=== PATIENT | male | born 1980 | race African-American/Black ===

== ENCOUNTER 2019-09-03 05:26 | Inpatient (IN) | payer BC ==
[~2019-09-03] VITALS: Ht 185.4 cm; Wt 133.8 kg
[2019-09-03] VITALS (13 sets, daily range): BP systolic 139–149; BP diastolic 51–89
[2019-09-03] MEDS: D5.45%NS/KCL 20MEQ 1,000 ML IV SCH ×3 (01:15→22:30)
[~2019-09-03 05:26] MED LIST: ACETAMINOPHEN325 M1 PO; AMLODIPINE BESY10 MG PO; BASAGLAR K100 UNIT/1; CARVEDILOL12.5 MG PO; GABAPENTIN300 MG PO; METFORMIN HCL500 MG PO; NORCO 5-325 TA1 EACH PO; PANTOPRAZOLE SO40 MG PO
--- OUTSIDE RECORDS SUMMARY | 2019-09-03 05:31 | XMS REPORT ---
[facility] Address Unknown Phone Unavailable Care Team Providers Care Chief Ophthalmic Technician Name Role Phone Unavailable Unavailable Payers Payer Name Policy Type Policy Number Effective Date Expiration Date Problems This patient has no known problems. Allergies, Adverse Reactions, Alerts Allergy Name Allergy Type Status Severity Reaction(s) Onset Date Inactive Date Treating Clinician Comments No Known Allergies DA Active U 2019-04-23 00:00:00 No Known Allergies DA Active U 2019-01-25 00:00:00 No Known Allergies DA Active U 2018-10-03 00:00:00 No Known Allergies DA Active U 2016-02-27 00:00:00 Medications This patient has no known medications. Encounters Start Date/Time End Date/Time Encounter Type Admission Type Attending Clinicians Care Facility Care Department Encounter ID 2019-06-28 08:18:00 2019-06-28 08:18:00 Outpatient [id number] 2018-10-26 13:16:00 2018-10-26 13:16:00 Outpatient [facility] [id number] 2018-10-11 00:00:00 2018-10-11 00:00:00 Outpatient [facility] [id number] 2018-09-21 11:16:53 2018-09-21 11:16:53 Emergency [facility] [id number] 2018-09-21 06:53:26 2018-09-21 06:53:26 Emergency [facility] [id number] 2018-09-21 05:23:49 2018-09-21 05:23:49 Emergency [facility] [id number] Results Test Description Test Time Test Comments Text Results Atomic Results Result Comments LYMPH NODES 2019-07-12 16:34:00 RUN DATE: 07/12/19 [facility] PAGE 1 RUN TIME: 1634 Specimen Inquiry RUN USER: INTERFACE PATIENT: GLENN BAUM LOC: MICHAEL U #: [id number] AGE/SX: 38/M ROOM: [facility] RE07/04/19REG DR: Mei Peralta MD : 81 BED: A DIS: 07/06/19 STATUS: DIS IN TLOC: SPEC #: [id number] RECD: 07/05/19 STATUS: SOUT REQ #: [id number] BERHANE: 07/05/19-[address]: Mei Peralta MD ENTERED: 07/05/19 SP TYPE: LYMPH NODE OTHR DR: Surinder Trevino MD, Tahir MD [facility] MDORDERED: GROSS [place]: [place] [address] [place] [address] Rachid Moore MD [address] [place] [address] [place] [address] [address] TUMOR REGISTRY Adilson Guzmán MD [address] [place], [place] [id number] MARKERS: INTRADEPARTMENTAL CONSULT, MALIGNANCY PROCEDURES: GROSS (07/12/19) TISSUES: 1. PAROTID GLAND, NOS - LN 5 SLIDE 2. 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 There revealed the tumor to be positive for OCT4 and DT-40, and negative for AFP and Pancytokeratin. A similar staining pattern was seen on the previous tumor in the orchiectomy specimen ([id number]). 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 The specimen is stained with PAP stain for cytologic evaluation. The second specimen is labeled "paraaortic lymph node" and consists of cores of fajardo soft tissue ranging from 0.3 to 0.9 cm. It is entirely submitted as (2). GROSS PERFORMED AT [facility] [address] [place] [phone])[phone] MICROSCOPIC The sections demonstrate a malignant tumor within fibrotic tissue. The tumor is composed of large tumor cells with a high nuclear cytoplasmic ratio, prominent nucleoli, and intermixed lymphocytes. Some focal necrosis is present. Similar tumor cells with intermixed lymphocytes are seen on the touch prep slides. All of the stains, including any controls performed, stain appropriately. MICROSCOPIC PERFORMED AT [facility] [address] [place] [address] CONTINUED ON NEXT PAGE RUN DATE: 07/12/19 [facility] PAGE 3 RUN TIME: 1634 Specimen Inquiry RUN USER: INTERFACE SPEC #: [id number] PATIENT: GLENN BAUM #[id number] (Continued) MICROSCOPIC (Continued) [place] [address] [phone])[phone] PERFORMING SITE Processed at: [facility] [address] [place] [address] Signed SIGNATURE ON FILE Stella Saavedra MD 07/12/19 1634 END OF REPORT - CT ABD PELVIS W/O CONT 2019-07-12 01:00:00 Name: GLENN BAUM [facility] FSED : 1980 Age/S: 38 / M [address] [facility] [address] Unit #: [id number] Loc: [address] Phys: Lesa Burris MD [place], [place] [address] Acct: [id number] Dis Date: Status: REG ER PHONE #: Exam Date: 07/12/2019 0033 FAX #: Reason: right flank pain EXAMS: CPT CODE: [id number] CT ABD PELVIS W/O CONT [address] CT abdomen and pelvis without IV contrast. Indication: Right flank pain Location: R16 Comparison: July 05, 2019 Technique: CT images of the abdomen and pelvis were obtained from the diaphragm to the pubic symphysis without the administration of intravenous contrast contrast. Coronal reformats are provided. One or more of the following dose reduction techniques were used: Automated exposure control, adjustment of the mA and/or kV according to patient size, and/or utilization of iterative reconstruction technique. Findings: Lungs bases: Unremarkable. Upper GI: Small hiatal hernia is noted Liver: Noncontrast appearance is unremarkable. Gallbladder: Noncontrast appearance is unremarkable. Pancreas: Noncontrast appearance is unremarkable. Spleen: Noncontrast appearance is unremarkable. Adrenal glands: Noncontrast appearance is unremarkable. Kidneys: Noncontrast appearance is unremarkable. Bowel: No bowel obstruction. The appendix is unremarkable. Peritoneum: No ascites. No free air Skeletal: No acute fracture.. Impression: Although limited by the absence of IV contrast, no definite acute abnormality is seen within the abdomen and pelvis to explain the patient's symptomology at 0100 Reported and signed by: Jessica Corrigan M.D. PAGE 1 Signed Report (CONTINUED) Name: GLENN BAUM [facility] FSED : 1980 Age/S: 38 / M [address] [facility] [address] Unit #: [id number] Loc: [address] Phys: Lesa Burris MD [place], [place] [address] Acct: [id number] Dis Date: Status: REG ER PHONE #: Exam Date: 07/12/2019 0033 FAX #: Reason: right flank pain EXAMS: CPT CODE: [id number] CT ABD PELVIS W/O CONT 82209 <Continued> CC: Surinder Trevino MD; Lesa Burris MD Technologist:Reece Arevalo CTDI: DLP: Trnscb Date/Time: 07/12/2019 (010) [email or web address] Orig Print D/T: S: 07/12/2019 (0103) PAGE 2 Signed Report URINALYSIS COMPLETE 2019-07-12 00:21:00 UA COLOR (test code=COLU) YELLOW YELLOW UA APPEARANCE (test code=APPU) CLEAR CLEAR UA GLUCOSE DIPSTICK (test code=DGLUU) NEGATIVE mg/dL NEGATIVE UA BILIRUBIN DIPSTICK (test code=BILU) NEGATIVE NEGATIVE UA KETONE DIPSTICK (test code=KETU) NEGATIVE mg/dL NEGATIVE UA SPECIFIC GRAVITY (test code=SGU) >=1.030 1.001-1.035 UA BLOOD DIPSTICK (test code=NIRMAL) NEGATIVE NEGATIVE UA PH DIPSTICK (test code=KRUNAL) 6.0 5.0-8.0 UA PROTEIN DIPSTICK (test code=PROU) TRACE (15) mg/dL Neg-15 UA UROBILINIOGEN DIPSTICK (test code=URO) 0.2 mg/dL 0.0-0.2 UA NITRITE DIPSTICK (test code=ARAMIS) NEGATIVE NEGATIVE UA LEUKOCYTE ESTERASE DIPSTICK (test code=LEUU) NEGATIVE uL NEGATIVE UA MICROSCOPIC NEEDED? (test code=UAMICRO) YES UA WBC (test code=WBCU) 0-5 per HPF 0-5 UA RBC (test code=RBCU) 0-3 per HPF 0-5 UA EPITHELIAL CELLS (test code=EPIU) Few (2-5/hpf) per HPF Few UA BACTERIA (test code=BACU) FEW per HPF NONE Urine Source? Clean CatchCOMPREHENSIVE METABOLIC [id number] 00:15:00* Test Item Value Reference Range Comments SODIUM (test code=NA) 141 mmol/L 128-145 POTASSIUM (test code=K) 4.4 mmol/L 3.5-5.1 CHLORIDE (test code=CL) 103.0 mmol/L 98-107 CARBON DIOXIDE (test code=CO2) 27.8 mmol/L 22-29 ANION GAP (test code=GAP) 15 mmol/L 10-20 GLUCOSE (test code=GLU) 118 mg/dL 70-110 BLOOD UREA NITROGEN (test code=BUN) 19 mg/dL 7-22 CREATININE (test code=CREAT) 1.56 mg/dL 0.55-1.3 BUN/CREATININE RATIO (test code=BUN/CREA) 12.2 10-20 TOTAL PROTEIN (test code=PROT) 7.2 gram/dL 6.1-7.8 ALBUMIN (test code=ALB) 3.7 g/dL 3.3-4.4 GLOBULIN (test code=GLOB) 3.5 G/DL 1-10 ALBUMIN/GLOBULIN RATIO (test code=A/G) 1.1 0.75-1.50 CALCIUM (test code=CA) 8.7 mg/dL 8.0-10.5 BILIRUBIN TOTAL (test code=BILT) 0.20 mg/dL 0.2-1.2 SGOT/AST (test code=AST) 28 U/L 10-39 SGPT/ALT (test code=ALT) 37 U/L 10-69 ALKALINE PHOSPHATASE TOTAL (test code=ALKP) 91 U/L 50-139 [id number] 00:15:00* Test Item Value Reference Range Comments LIPASE (test code=LIP) 195 Unit/L 144-286 URINALYSIS [id number] 00:15:00* Test Item Value Reference Range Comments UA COLOR (test code=COLU) YELLOW YELLOW UA APPEARANCE (test code=APPU) CLEAR CLEAR UA GLUCOSE DIPSTICK (test code=DGLUU) NEGATIVE mg/dL NEGATIVE UA BILIRUBIN DIPSTICK (test code=BILU) NEGATIVE NEGATIVE UA KETONE DIPSTICK (test code=KETU) NEGATIVE mg/dL NEGATIVE UA SPECIFIC GRAVITY (test code=SGU) >=1.030 1.001-1.035 UA BLOOD DIPSTICK (test code=NIRMAL) NEGATIVE NEGATIVE UA PH DIPSTICK (test code=KRUNAL) 6.0 5.0-8.0 UA PROTEIN DIPSTICK (test code=PROU) TRACE (15) mg/dL Neg-15 UA UROBILINIOGEN DIPSTICK (test code=URO) 0.2 mg/dL 0.0-0.2 UA NITRITE DIPSTICK (test code=ARAMIS) NEGATIVE NEGATIVE UA LEUKOCYTE ESTERASE DIPSTICK (test code=LEUU) NEGATIVE uL NEGATIVE UA MICROSCOPIC NEEDED? (test code=UAMICRO) UA WBC (test code=WBCU) per HPF 0-5 UA RBC (test code=RBCU) per HPF 0-5 UA EPITHELIAL CELLS (test code=EPIU) per HPF Few UA BACTERIA (test code=BACU) per HPF NONE Urine Source? Clean CatchCOMPREHENSIVE METABOLIC [id number] 00:11:00* Test Item Value Reference Range Comments SODIUM (test code=NA) 141 mmol/L 128-145 POTASSIUM (test code=K) 4.4 mmol/L 3.5-5.1 CHLORIDE (test code=CL) 103.0 mmol/L 98-107 CARBON DIOXIDE (test code=CO2) 27.8 mmol/L 22-29 ANION GAP (test code=GAP) 15 mmol/L 10-20 GLUCOSE (test code=GLU) 118 mg/dL 70-110 BLOOD UREA NITROGEN (test code=BUN) 19 mg/dL 7-22 CREATININE (test code=CREAT) 1.56 mg/dL 0.55-1.3 BUN/CREATININE RATIO (test code=BUN/CREA) 12.2 10-20 TOTAL PROTEIN (test code=PROT) gram/dL 6.4-8.2 ALBUMIN (test code=ALB) g/dL 3.4-5.0 GLOBULIN (test code=GLOB) G/DL 1-10 ALBUMIN/GLOBULIN RATIO (test code=A/G) 0.75-1.50 CALCIUM (test code=CA) 8.7 mg/dL 8.0-10.5 BILIRUBIN TOTAL (test code=BILT) mg/dL 0.0-1.0 SGOT/AST (test code=AST) IUnit/L 15-37 SGPT/ALT (test code=ALT) IUnit/L 12-78 ALKALINE PHOSPHATASE TOTAL (test code=ALKP) IUnit/L 45-117 [id number] 00:11:00* Test Item Value Reference Range Comments LIPASE (test code=LIP) U/L 73.0-393.0 CBC W/AUTO [id number] 00:01:00* Test Item Value Reference Range Comments WHITE BLOOD CELL (test code=WBC) 7.1 K/mm3 4.5-12.5 RED BLOOD CELL (test code=RBC) 4.49 mill/mm3 4.0-5.8 HEMOGLOBIN (test code=HGB) 11.3 gram/dL 13.0-17.5 HEMATOCRIT (test code=HCT) 37.4 % 42.0-52.0 MEAN CELL VOLUME (test code=MCV) 83.3 fL 80-98 MEAN CELL HGB (test code=MCH) 25.2 picogram 27.0-33.0 MEAN CELL HGB CONCETRATION (test code=MCHC) 30.2 gram/dL 33.0-36.0 RED CELL DISTRIBUTION WIDTH (test code=RDW) 13.4 % 11.6-16.2 RED CELL DISTRIBUTION WIDTH SD (test code=RDW-SD) 41.1 fL 37.0-51.0 PLATELET COUNT (test code=PLT) 162 K/mm3 150-450 MEAN PLATELET VOLUME (test code=MPV) 11.0 fL 6.7-11.0 NEUTROPHIL % (test code=NT%) 44.7 % 39.0-69.0 LYMPHOCYTE % (test code=LY%) 41.8 % 25.0-55.0 MONOCYTE % (test code=MO%) 10.5 % 0.0-10.0 EOSINOPHIL % (test code=EO%) 2.4 % 0.0-5.0 BASOPHIL % (test code=BA%) 0.3 % 0.0-1.0 NEUTROPHIL # (test code=NT#) 3.15 K/mm3 1.8-7.7 LYMPHOCYTE # (test code=LY#) 2.95 K/mm3 1.0-5.0 MONOCYTE # (test code=MO#) 0.74 K/mm3 0-0.8 EOSINOPHIL # (test code=EO#) 0.17 K/mm3 0.0-0.5 BASOPHIL # (test code=BA#) 0.02 K/mm3 0.0-0.2 MANUAL DIFF REQUIRED (test code=MDIFF) NO CBC W/AUTO [id number] 09:54:00* Test Item Value Reference Range Comments WHITE BLOOD CELL (test code=WBC) 6.5 K/mm3 4.5-12.5 RED BLOOD CELL (test code=RBC) 4.76 mill/mm3 4.0-5.8 HEMOGLOBIN (test code=HGB) 11.5 gram/dL 13.0-17.5 HEMATOCRIT (test code=HCT) 39.9 % 42.0-52.0 MEAN CELL VOLUME (test code=MCV) 83.8 fL 80-98 MEAN CELL HGB (test code=MCH) 24.2 picogram 27.0-33.0 MEAN CELL HGB CONCETRATION (test code=MCHC) 28.8 gram/dL 33.0-36.0 RED CELL DISTRIBUTION WIDTH (test code=RDW) 13.3 % 11.6-16.2 RED CELL DISTRIBUTION WIDTH SD (test code=RDW-SD) 40.8 fL 37.0-51.0 PLATELET COUNT (test code=PLT) 193 K/mm3 150-450 MEAN PLATELET VOLUME (test code=MPV) 10.4 fL 6.7-11.0 NEUTROPHIL % (test code=NT%) 48.2 % 39.0-69.0 IMMATURE GRANULOCYTE % (test code=IG%) 0.2 % 0.0-5.0 LYMPHOCYTE % (test code=LY%) 41.7 % 25.0-55.0 MONOCYTE % (test code=MO%) 7.7 % 0.0-10.0 EOSINOPHIL % (test code=EO%) 1.7 % 0.0-5.0 BASOPHIL % (test code=BA%) 0.5 % 0.0-1.0 NUCLEATED RBC % (test code=NRBC%) 0.0 % 0-0 NEUTROPHIL # (test code=NT#) 3.14 K/mm3 1.8-7.7 IMMATURE GRANULOCYTE # (test code=IG#) 0.01 x10 3/uL 0-0.03 LYMPHOCYTE # (test code=LY#) 2.71 K/mm3 1.0-5.0 MONOCYTE # (test code=MO#) 0.50 K/mm3 0-0.8 EOSINOPHIL # (test code=EO#) 0.11 K/mm3 0.0-0.5 BASOPHIL # (test code=BA#) 0.03 K/mm3 0.0-0.2 NUCLEATED RBC # (test code=NRBC#) 0.00 K/mm3 0.0-0.1 MANUAL DIFF REQUIRED (test code=MDIFF) NO, ONLY SCAN NEEDED DIFFERENTIAL [id number] 09:54:00* Test Item Value Reference Range Comments STAIN ACCEPTABILITY (test code=STN ACCEPTABLE) STAIN ACCEPTABLE POLYCHROMASIA (test code=POLC) 1+ HYPOCHROMIA (test code=HYPO) 1+ POIKILOCYTOSIS (test code=POIK) 1+ ANISOCYTOSIS (test code=ANISO) 1+ PLATELET ESTIMATE (test code=PLTEST) ADEQUATE PLATELET MORPHOLOGY (test code=PLTMORPH) NORMAL BASIC METABOLIC [id number] 09:50:00* Test Item Value Reference Range Comments SODIUM (test code=NA) 139 mmol/L 136-145 POTASSIUM (test code=K) 4.1 mmol/L 3.5-5.1 CHLORIDE (test code=CL) 105.0 mmol/L 98-107 CARBON DIOXIDE (test code=CO2) 28.0 mmol/L 21-32 ANION GAP (test code=GAP) 10.1 10-20 GLUCOSE (test code=GLU) 115 mg/dL 74-106 BLOOD UREA NITROGEN (test code=BUN) 14 mg/dL 7-18 GLOMERULAR FILTRATION RATE (test code=GFR) > 60 mL/min >=60 Estimated GFR by using Modified MDRD formula.Chronic kidney disease is defined as either kidney damageor GFR <60 mL/min/1.73 m2 for >3 months. CREATININE (test code=CREAT) 1.30 mg/dL 0.7-1.3 BUN/CREATININE RATIO (test code=BUN/CREA) 10.9 10-20 CALCIUM (test code=CA) 9.0 mg/dL 8.5-10.1 BASIC METABOLIC [id number] 09:38:00* Test Item Value Reference Range Comments SODIUM (test code=NA) 139 mmol/L 136-145 POTASSIUM (test code=K) 4.1 mmol/L 3.5-5.1 CHLORIDE (test code=CL) 105.0 mmol/L 98-107 CARBON DIOXIDE (test code=CO2) mmol/L 21-32 ANION GAP (test code=GAP) 10-20 GLUCOSE (test code=GLU) mg/dL 74-106 BLOOD UREA NITROGEN (test code=BUN) mg/dL 7-18 GLOMERULAR FILTRATION RATE (test code=GFR) mL/min >=60 CREATININE (test code=CREAT) mg/dL 0.7-1.3 BUN/CREATININE RATIO (test code=BUN/CREA) 10-20 CALCIUM (test code=CA) mg/dL 8.5-10.1 CBC W/AUTO [id number] 09:23:00* Test Item Value Reference Range Comments WHITE BLOOD CELL (test code=WBC) 6.5 K/mm3 4.5-12.5 RED BLOOD CELL (test code=RBC) 4.76 mill/mm3 4.0-5.8 HEMOGLOBIN (test code=HGB) 11.5 gram/dL 13.0-17.5 HEMATOCRIT (test code=HCT) 39.9 % 42.0-52.0 MEAN CELL VOLUME (test code=MCV) 83.8 fL 80-98 MEAN CELL HGB (test code=MCH) 24.2 picogram 27.0-33.0 MEAN CELL HGB CONCETRATION (test code=MCHC) 28.8 gram/dL 33.0-36.0 RED CELL DISTRIBUTION WIDTH (test code=RDW) 13.3 % 11.6-16.2 RED CELL DISTRIBUTION WIDTH SD (test code=RDW-SD) 40.8 fL 37.0-51.0 PLATELET COUNT (test code=PLT) 193 K/mm3 150-450 MEAN PLATELET VOLUME (test code=MPV) 10.4 fL 6.7-11.0 NEUTROPHIL % (test code=NT%) 48.2 % 39.0-69.0 IMMATURE GRANULOCYTE % (test code=IG%) 0.2 % 0.0-5.0 LYMPHOCYTE % (test code=LY%) 41.7 % 25.0-55.0 MONOCYTE % (test code=MO%) 7.7 % 0.0-10.0 EOSINOPHIL % (test code=EO%) 1.7 % 0.0-5.0 BASOPHIL % (test code=BA%) 0.5 % 0.0-1.0 NUCLEATED RBC % (test code=NRBC%) 0.0 % 0-0 NEUTROPHIL # (test code=NT#) 3.14 K/mm3 1.8-7.7 IMMATURE GRANULOCYTE # (test code=IG#) 0.01 x10 3/uL 0-0.03 LYMPHOCYTE # (test code=LY#) 2.71 K/mm3 1.0-5.0 MONOCYTE # (test code=MO#) 0.50 K/mm3 0-0.8 EOSINOPHIL # (test code=EO#) 0.11 K/mm3 0.0-0.5 BASOPHIL # (test code=BA#) 0.03 K/mm3 0.0-0.2 NUCLEATED RBC # (test code=NRBC#) 0.00 K/mm3 0.0-0.1 MANUAL DIFF REQUIRED (test code=MDIFF) NO, ONLY SCAN NEEDED DIFFERENTIAL [id number] 09:23:00* Test Item Value Reference Range Comments STAIN ACCEPTABILITY (test code=STN ACCEPTABLE) CABOT RINGS (test code=CAB) MORPHOLOGY COMMENT (test code=MOC) PLATELET ESTIMATE (test code=PLTEST) PLATELET MORPHOLOGY (test code=PLTMORPH) CBC W/AUTO [id number] 09:23:00* Test Item Value Reference Range Comments WHITE BLOOD CELL (test code=WBC) 6.5 K/mm3 4.5-12.5 RED BLOOD CELL (test code=RBC) 4.76 mill/mm3 4.0-5.8 HEMOGLOBIN (test code=HGB) 11.5 gram/dL 13.0-17.5 HEMATOCRIT (test code=HCT) 39.9 % 42.0-52.0 MEAN CELL VOLUME (test code=MCV) 83.8 fL 80-98 MEAN CELL HGB (test code=MCH) 24.2 picogram 27.0-33.0 MEAN CELL HGB CONCETRATION (test code=MCHC) 28.8 gram/dL 33.0-36.0 RED CELL DISTRIBUTION WIDTH (test code=RDW) 13.3 % 11.6-16.2 RED CELL DISTRIBUTION WIDTH SD (test code=RDW-SD) 40.8 fL 37.0-51.0 PLATELET COUNT (test code=PLT) 193 K/mm3 150-450 MEAN PLATELET VOLUME (test code=MPV) 10.4 fL 6.7-11.0 NEUTROPHIL % (test code=NT%) 48.2 % 39.0-69.0 IMMATURE GRANULOCYTE % (test code=IG%) 0.2 % 0.0-5.0 LYMPHOCYTE % (test code=LY%) 41.7 % 25.0-55.0 MONOCYTE % (test code=MO%) 7.7 % 0.0-10.0 EOSINOPHIL % (test code=EO%) 1.7 % 0.0-5.0 BASOPHIL % (test code=BA%) 0.5 % 0.0-1.0 NUCLEATED RBC % (test code=NRBC%) 0.0 % 0-0 NEUTROPHIL # (test code=NT#) 3.14 K/mm3 1.8-7.7 IMMATURE GRANULOCYTE # (test code=IG#) 0.01 x10 3/uL 0-0.03 LYMPHOCYTE # (test code=LY#) 2.71 K/mm3 1.0-5.0 MONOCYTE # (test code=MO#) 0.50 K/mm3 0-0.8 EOSINOPHIL # (test code=EO#) 0.11 K/mm3 0.0-0.5 BASOPHIL # (test code=BA#) 0.03 K/mm3 0.0-0.2 NUCLEATED RBC # (test code=NRBC#) 0.00 K/mm3 0.0-0.1 MANUAL DIFF REQUIRED (test code=MDIFF) NO, ONLY SCAN NEEDED DIFFERENTIAL [id number] 09:23:00* Test Item Value Reference Range Comments STAIN ACCEPTABILITY (test code=STN ACCEPTABLE) MORPHOLOGY COMMENT (test code=MOC) PLATELET ESTIMATE (test code=PLTEST) PLATELET MORPHOLOGY (test code=PLTMORPH) CBC W/AUTO [id number] 09:22:00* Test Item Value Reference Range Comments WHITE BLOOD CELL (test code=WBC) 6.5 K/mm3 4.5-12.5 RED BLOOD CELL (test code=RBC) 4.76 mill/mm3 4.0-5.8 HEMOGLOBIN (test code=HGB) 11.5 gram/dL 13.0-17.5 HEMATOCRIT (test code=HCT) 39.9 % 42.0-52.0 MEAN CELL VOLUME (test code=MCV) 83.8 fL 80-98 MEAN CELL HGB (test code=MCH) 24.2 picogram 27.0-33.0 MEAN CELL HGB CONCETRATION (test code=MCHC) 28.8 gram/dL 33.0-36.0 RED CELL DISTRIBUTION WIDTH (test code=RDW) 13.3 % 11.6-16.2 RED CELL DISTRIBUTION WIDTH SD (test code=RDW-SD) 40.8 fL 37.0-51.0 PLATELET COUNT (test code=PLT) 193 K/mm3 150-450 MEAN PLATELET VOLUME (test code=MPV) 10.4 fL 6.7-11.0 NEUTROPHIL % (test code=NT%) 48.2 % 39.0-69.0 IMMATURE GRANULOCYTE % (test code=IG%) 0.2 % 0.0-5.0 LYMPHOCYTE % (test code=LY%) 41.7 % 25.0-55.0 MONOCYTE % (test code=MO%) 7.7 % 0.0-10.0 EOSINOPHIL % (test code=EO%) 1.7 % 0.0-5.0 BASOPHIL % (test code=BA%) 0.5 % 0.0-1.0 NUCLEATED RBC % (test code=NRBC%) 0.0 % 0-0 NEUTROPHIL # (test code=NT#) 3.14 K/mm3 1.8-7.7 IMMATURE GRANULOCYTE # (test code=IG#) 0.01 x10 3/uL 0-0.03 LYMPHOCYTE # (test code=LY#) 2.71 K/mm3 1.0-5.0 MONOCYTE # (test code=MO#) 0.50 K/mm3 0-0.8 EOSINOPHIL # (test code=EO#) 0.11 K/mm3 0.0-0.5 BASOPHIL # (test code=BA#) 0.03 K/mm3 0.0-0.2 NUCLEATED RBC # (test code=NRBC#) 0.00 K/mm3 0.0-0.1 MANUAL DIFF REQUIRED (test code=MDIFF) NO, ONLY SCAN NEEDED DIFFERENTIAL [id number] 09:22:00* Test Item Value Reference Range Comments STAIN ACCEPTABILITY (test code=STN ACCEPTABLE) CABOT RINGS (test code=CAB) MORPHOLOGY COMMENT (test code=MOC) PLATELET ESTIMATE (test code=PLTEST) PLATELET MORPHOLOGY (test code=PLTMORPH) CBC W/AUTO [id number] 09:22:00* Test Item Value Reference Range Comments WHITE BLOOD CELL (test code=WBC) 6.5 K/mm3 4.5-12.5 RED BLOOD CELL (test code=RBC) 4.76 mill/mm3 4.0-5.8 HEMOGLOBIN (test code=HGB) 11.5 gram/dL 13.0-17.5 HEMATOCRIT (test code=HCT) 39.9 % 42.0-52.0 MEAN CELL VOLUME (test code=MCV) 83.8 fL 80-98 MEAN CELL HGB (test code=MCH) 24.2 picogram 27.0-33.0 MEAN CELL HGB CONCETRATION (test code=MCHC) 28.8 gram/dL 33.0-36.0 RED CELL DISTRIBUTION WIDTH (test code=RDW) 13.3 % 11.6-16.2 RED CELL DISTRIBUTION WIDTH SD (test code=RDW-SD) 40.8 fL 37.0-51.0 PLATELET COUNT (test code=PLT) 193 K/mm3 150-450 MEAN PLATELET VOLUME (test code=MPV) 10.4 fL 6.7-11.0 NEUTROPHIL % (test code=NT%) 48.2 % 39.0-69.0 IMMATURE GRANULOCYTE % (test code=IG%) 0.2 % 0.0-5.0 LYMPHOCYTE % (test code=LY%) 41.7 % 25.0-55.0 MONOCYTE % (test code=MO%) 7.7 % 0.0-10.0 EOSINOPHIL % (test code=EO%) 1.7 % 0.0-5.0 BASOPHIL % (test code=BA%) 0.5 % 0.0-1.0 NUCLEATED RBC % (test code=NRBC%) 0.0 % 0-0 NEUTROPHIL # (test code=NT#) 3.14 K/mm3 1.8-7.7 IMMATURE GRANULOCYTE # (test code=IG#) 0.01 x10 3/uL 0-0.03 LYMPHOCYTE # (test code=LY#) 2.71 K/mm3 1.0-5.0 MONOCYTE # (test code=MO#) 0.50 K/mm3 0-0.8 EOSINOPHIL # (test code=EO#) 0.11 K/mm3 0.0-0.5 BASOPHIL # (test code=BA#) 0.03 K/mm3 0.0-0.2 NUCLEATED RBC # (test code=NRBC#) 0.00 K/mm3 0.0-0.1 MANUAL DIFF REQUIRED (test code=MDIFF) NO, ONLY SCAN NEEDED DIFFERENTIAL [id number] 09:22:00* Test Item Value Reference Range Comments STAIN ACCEPTABILITY (test code=STN ACCEPTABLE) CABOT RINGS (test code=CAB) MORPHOLOGY COMMENT (test code=MOC) PLATELET ESTIMATE (test code=PLTEST) PLATELET MORPHOLOGY (test code=PLTMORPH) [id number] 08:16:00* Test Item Value Reference Range Comments GLUBED (test code=GLUBED) 73 mg/dL 74-106 Performed by certified mingler operator at [facility] [id number] 20:33:00* Test Item Value Reference Range Comments GLUBED (test code=GLUBED) 94 mg/dL 74-106 Performed by certified mingler operator at [facility] [id number] 17:14:00* Test Item Value Reference Range Comments GLUBED (test code=GLUBED) 200 mg/dL 74-106 Performed by certified mingler operator at [facility] URINALYSIS W/O [id number] 13:47:00* Test Item Value Reference Range Comments UA COLOR (test code=COLU) Light-Yellow YELLOW UA APPEARANCE (test code=APPU) CLEAR CLEAR UA GLUCOSE DIPSTICK (test code=DGLUU) NEGATIVE mg/dL NEGATIVE UA BILIRUBIN DIPSTICK (test code=BILU) NEGATIVE mg/dL NEGATIVE UA KETONE DIPSTICK (test code=KETU) NEGATIVE mg/dL NEGATIVE UA SPECIFIC GRAVITY (test code=SGU) 1.015 1.001-1.035 UA BLOOD DIPSTICK (test code=NIRMAL) Negative mg/dL NEGATIVE UA PH DIPSTICK (test code=KRUNAL) 5.5 5.0-8.0 UA PROTEIN DIPSTICK (test code=PROU) NEGATIVE mg/dL NEGATIVE UA UROBILINIOGEN DIPSTICK (test code=URO) Normal mg/dL NEGATIVE UA NITRITE DIPSTICK (test code=ARAMIS) NEGATIVE NEGATIVE UA LEUKOCYTE ESTERASE W REFLEX (test code=LEUUR) NEGATIVE Yoni/uL NEGATIVE UR PROTEIN/CREATININE [id number] 13:47:00* Test Item Value Reference Range Comments UR PROTEIN RANDOM (test code=PROTU) 7.6 mg/dL 0.0-11.9 Protein levels may be falsely elevated in patients withelevated level of aminoglycoside antibiotics in CSF and inhighly concentrated urine specimens. If false elevation issuspected, contact lab for alternated testing technique. UR CREATININE RANDOM (test code=CREATU) 103.0 mg/dL 30-125 PROTEIN/CREATININE RATIO (test code=P/CRATIO) 0.07 RATIO 0.0-0.20 URINALYSIS W/O [id number] 13:43:00* Test Item Value Reference Range Comments UA COLOR (test code=COLU) Light-Yellow YELLOW UA APPEARANCE (test code=APPU) CLEAR CLEAR UA GLUCOSE DIPSTICK (test code=DGLUU) NEGATIVE mg/dL NEGATIVE UA BILIRUBIN DIPSTICK (test code=BILU) NEGATIVE mg/dL NEGATIVE UA KETONE DIPSTICK (test code=KETU) NEGATIVE mg/dL NEGATIVE UA SPECIFIC GRAVITY (test code=SGU) 1.015 1.001-1.035 UA BLOOD DIPSTICK (test code=NIRMAL) Negative mg/dL NEGATIVE UA PH DIPSTICK (test code=KRUNAL) 5.5 5.0-8.0 UA PROTEIN DIPSTICK (test code=PROU) NEGATIVE mg/dL NEGATIVE UA UROBILINIOGEN DIPSTICK (test code=URO) Normal mg/dL NEGATIVE UA NITRITE DIPSTICK (test code=ARAMIS) NEGATIVE NEGATIVE UA LEUKOCYTE ESTERASE W REFLEX (test code=LEUUR) NEGATIVE Yoni/uL NEGATIVE UR PROTEIN/CREATININE [id number] 13:43:00* Test Item Value Reference Range Comments UR PROTEIN RANDOM (test code=PROTU) 7.6 mg/dL 0.0-11.9 Protein levels may be falsely elevated in patients withelevated level of aminoglycoside antibiotics in CSF and inhighly concentrated urine specimens. If false elevation issuspected, contact lab for alternated testing technique. UR CREATININE RANDOM (test code=CREATU) mg/dL 30-125 PROTEIN/CREATININE RATIO (test code=P/CRATIO) RATIO 0.0-0.20 URINALYSIS W/O [id number] 13:18:00* Test Item Value Reference Range Comments UA COLOR (test code=COLU) Light-Yellow YELLOW UA APPEARANCE (test code=APPU) CLEAR CLEAR UA GLUCOSE DIPSTICK (test code=DGLUU) NEGATIVE mg/dL NEGATIVE UA BILIRUBIN DIPSTICK (test code=BILU) NEGATIVE mg/dL NEGATIVE UA KETONE DIPSTICK (test code=KETU) NEGATIVE mg/dL NEGATIVE UA SPECIFIC GRAVITY (test code=SGU) 1.015 1.001-1.035 UA BLOOD DIPSTICK (test code=NIRMAL) Negative mg/dL NEGATIVE UA PH DIPSTICK (test code=KRUNAL) 5.5 5.0-8.0 UA PROTEIN DIPSTICK (test code=PROU) NEGATIVE mg/dL NEGATIVE UA UROBILINIOGEN DIPSTICK (test code=URO) Normal mg/dL NEGATIVE UA NITRITE DIPSTICK (test code=ARAMIS) NEGATIVE NEGATIVE UA LEUKOCYTE ESTERASE W REFLEX (test code=LEUUR) NEGATIVE Yoni/uL NEGATIVE UR PROTEIN/CREATININE [id number] 13:18:00* Test Item Value Reference Range Comments UR PROTEIN RANDOM (test code=PROTU) mg/dL 0.0-11.9 UR CREATININE RANDOM (test code=CREATU) mg/dL 30-125 PROTEIN/CREATININE RATIO (test code=P/CRATIO) RATIO 0.0-0.20 - CT GUID NDL [id number] 12:33:00 Name: GLENN BAUM [facility] : 1980 Age/S: 38 / M [address] [facility] Unit #: [id number] Loc: [place] [address] Phys: Pricilla Adame Acct: [id number] Dis Date: Status: ADM IN PHONE #: [phone] Exam Date: 07/05/2019 1145 FAX #: [phone] Reason: PARAORTIC LN BIOPSY, HX OF TESTICULAR CA EXAMS: CPT CODE: [id number] CT GUID [facility] [address] REASON FOR EXAM: Testicular cancer with enlargement of the left paraaortic lymph node. PROCEDURE: CT-guided biopsy of left para-aortic lymph node [id number] procedure time is approximately: 45 minutes FINDINGS: After informed consent was obtained, the patient was brought to CT and placed prone on the table. All elements of maximal sterile barrier technique were followed. Prior to the biopsy, axial images of the abdomen were obtained without intravenous contrast. Images of the CT were reviewed and the left para-aortic lymph node was localized. A safe pathway was found between the subcutaneous entry site and the left para-aortic lymph node. The access site was prepped and draped in the usual sterile fashion. A guiding needle was advanced into left para-aortic lymph node. Multiple core biopsies were then performed using a 20-gauge biopsy gun. Samples were submitted for cytology, microbiology, and flow cytometry. The needle was removed and hemostasis obtained. MEDICATIONS: 2 versed and 75 mcg fentanyl COMPLICATIONS: No immediate Blood loss: Less than 5 mL Fluoroscopic dose:514 mGy IMPRESSION: Technically successful CT-guided biopsy of left para-aortic lymph node. at 1233 Reported and signed by: Silas Breen M.D. CC: Surinder Trevino MD; Pricilla Adame; Mei Peralta MD Technologist:Ksenia Mcnally,RT(R),CT CTDI: DLP: Trnscb Date/Time: 07/05/2019 (1233) t.SDR.VTL Orig Print D/T: S: 07/05/2019 (8501) PAGE 1 Signed Report - CT ABD PELVIS W/O CONT 2019-07-05 11:03:00 Name: GLENN BAUM [facility] : 1980 Age/S: 38 / M [address] [facility] Unit #: [id number] Loc: [place] [address] Phys: Silas Breen MD Acct: [id number] Dis Date: Status: ADM IN PHONE #: [phone] Exam Date: 07/05/2019 1046 FAX #: [phone] Reason: EVAL PARAORTIC LYMPH NODE EXAMS: CPT CODE: [id number] CT ABD PELVIS W/O CONT 74845 HISTORY: Periaortic lymph node evaluation. Location: [facility]. COMPARISON: CT scan from September, and PET scan from February 26, 2019. CT of abdomen and pelvis: Stone protocol. Automated exposure control. CT of abdomen: The lung bases are clear. Noncontrast liver is unremarkable. No discrete lesions are noted. The liver is measuring 21.1 cm. Gallbladder is without radiopaque stones. Unremarkable spleen. The stomach distended incompletely however it is normal in appearance. Noncontrast pancreas and adrenals are normal. Kidneys are free from hydroureteronephrosis. No calyceal stones. Retroperitoneal pathologic adenopathy at the level of the renal hilum and anterior to the left renal vein measured 3.7 cm. This is seen posterior to the pancreatic tail. This is larger from previous examination when it measured up to 1.5 cm. No bowel obstruction or colitis or diverticulitis or enteritis. CT PELVIS: Appendix is normal. Pelvic bowel loops are unobstructed. Mild distention rectosigmoid colon with stool and air. Prostate is not enlarged. No pathologic pelvic adenopathy. No free fluid or free air. Phleboliths. Subcutaneous tissues and the musculature are normal in appearance. No lytic or blastic lesions noted within the bony skeleton. Bony exostosis from the right pubic bone. IMPRESSION: Left para-aortic lymph node in the lower lobe and left renal hilum PAGE 1 Signed Report (CONTINUED) Name: GLENN BAUM [facility] : 1980 Age/S: 38 / M [address] [facility] Unit #: [id number] Loc: [place] [address] Phys: Silas Breen MD Acct: [id number] Dis Date: Status: ADM IN PHONE #: [phone] Exam Date: 07/05/2019 1046 FAX #: [phone] Reason: EVAL PARAORTIC LYMPH NODE EXAMS: CPT CODE: [id number] CT ABD PELVIS W/O CONT [id number] < Continued> anterior to the left renal vein and posterior to the pancreatic tail measuring 3.7 cm from 1.5 cm from previous PET/CT scan. at 1103 Reported and signed by: Nadeem Milton M.D. CC: Surinder Trevino MD; Mei Peralta MD Technologist:Allyn Rodríguez RT(R),CT CTDI: DLP: Trnscb Date/Time: 07/05/2019 (1103) t.[email or web address] Orig Print D/T: S: 07/05/2019 (1106) PAGE 2 Signed Report BASIC METABOLIC [id number] 10:02:00* Test Item Value Reference Range Comments SODIUM (test code=NA) 140 mmol/L 136-145 POTASSIUM (test code=K) 4.2 mmol/L 3.5-5.1 CHLORIDE (test code=CL) 105.0 mmol/L 98-107 CARBON DIOXIDE (test code=CO2) 29.0 mmol/L 21-32 ANION GAP (test code=GAP) 10.2 10-20 GLUCOSE (test code=GLU) 84 mg/dL 74-106 BLOOD UREA NITROGEN (test code=BUN) 15 mg/dL 7-18 GLOMERULAR FILTRATION RATE (test code=GFR) > 60 mL/min >=60 Estimated GFR by using Modified MDRD formula.Chronic kidney disease is defined as either kidney damageor GFR <60 mL/min/1.73 m2 for >3 months. CREATININE (test code=CREAT) 1.40 mg/dL 0.7-1.3 BUN/CREATININE RATIO (test code=BUN/CREA) 11.1 10-20 CALCIUM (test code=CA) 8.9 mg/dL 8.5-10.1 CBC W/AUTO [id number] 09:56:00* Test Item Value Reference Range Comments WHITE BLOOD CELL (test code=WBC) 6.5 K/mm3 4.5-12.5 RED BLOOD CELL (test code=RBC) 4.91 mill/mm3 4.0-5.8 HEMOGLOBIN (test code=HGB) 11.8 gram/dL 13.0-17.5 HEMATOCRIT (test code=HCT) 40.7 % 42.0-52.0 MEAN CELL VOLUME (test code=MCV) 82.9 fL 80-98 MEAN CELL HGB (test code=MCH) 24.0 picogram 27.0-33.0 MEAN CELL HGB CONCETRATION (test code=MCHC) 29.0 gram/dL 33.0-36.0 RED CELL DISTRIBUTION WIDTH (test code=RDW) 13.3 % 11.6-16.2 RED CELL DISTRIBUTION WIDTH SD (test code=RDW-SD) 40.3 fL 37.0-51.0 PLATELET COUNT (test code=PLT) 202 K/mm3 150-450 MEAN PLATELET VOLUME (test code=MPV) 11.3 fL 6.7-11.0 NEUTROPHIL % (test code=NT%) 39.0 % 39.0-69.0 IMMATURE GRANULOCYTE % (test code=IG%) 0.2 % 0.0-5.0 LYMPHOCYTE % (test code=LY%) 49.7 % 25.0-55.0 MONOCYTE % (test code=MO%) 8.5 % 0.0-10.0 EOSINOPHIL % (test code=EO%) 2.0 % 0.0-5.0 BASOPHIL % (test code=BA%) 0.6 % 0.0-1.0 NUCLEATED RBC % (test code=NRBC%) 0.0 % 0-0 NEUTROPHIL # (test code=NT#) 2.53 K/mm3 1.8-7.7 IMMATURE GRANULOCYTE # (test code=IG#) 0.01 x10 3/uL 0-0.03 LYMPHOCYTE # (test code=LY#) 3.22 K/mm3 1.0-5.0 MONOCYTE # (test code=MO#) 0.55 K/mm3 0-0.8 EOSINOPHIL # (test code=EO#) 0.13 K/mm3 0.0-0.5 BASOPHIL # (test code=BA#) 0.04 K/mm3 0.0-0.2 NUCLEATED RBC # (test code=NRBC#) 0.00 K/mm3 0.0-0.1 [id number] 09:48:00* Test Item Value Reference Range Comments GLUBED (test code=GLUBED) 94 mg/dL 74-106 Performed by certified mingler operator at [facility] CBC W/AUTO [id number] 22:57:00* Test Item Value Reference Range Comments WHITE BLOOD CELL (test code=WBC) 8.4 K/mm3 4.5-12.5 RED BLOOD CELL (test code=RBC) 4.74 mill/mm3 4.0-5.8 HEMOGLOBIN (test code=HGB) 11.5 gram/dL 13.0-17.5 HEMATOCRIT (test code=HCT) 40.0 % 42.0-52.0 MEAN CELL VOLUME (test code=MCV) 84.4 fL 80-98 MEAN CELL HGB (test code=MCH) 24.3 picogram 27.0-33.0 MEAN CELL HGB CONCETRATION (test code=MCHC) 28.8 gram/dL 33.0-36.0 RED CELL DISTRIBUTION WIDTH (test code=RDW) 13.3 % 11.6-16.2 RED CELL DISTRIBUTION WIDTH SD (test code=RDW-SD) 41.4 fL 37.0-51.0 PLATELET COUNT (test code=PLT) 220 K/mm3 150-450 MEAN PLATELET VOLUME (test code=MPV) 10.6 fL 6.7-11.0 NEUTROPHIL % (test code=NT%) 33.2 % 39.0-69.0 IMMATURE GRANULOCYTE % (test code=IG%) 0.2 % 0.0-5.0 LYMPHOCYTE % (test code=LY%) 56.3 % 25.0-55.0 MONOCYTE % (test code=MO%) 7.8 % 0.0-10.0 EOSINOPHIL % (test code=EO%) 2.0 % 0.0-5.0 BASOPHIL % (test code=BA%) 0.5 % 0.0-1.0 NUCLEATED RBC % (test code=NRBC%) 0.0 % 0-0 NEUTROPHIL # (test code=NT#) 2.78 K/mm3 1.8-7.7 IMMATURE GRANULOCYTE # (test code=IG#) 0.02 x10 3/uL 0-0.03 LYMPHOCYTE # (test code=LY#) 4.72 K/mm3 1.0-5.0 MONOCYTE # (test code=MO#) 0.65 K/mm3 0-0.8 EOSINOPHIL # (test code=EO#) 0.17 K/mm3 0.0-0.5 BASOPHIL # (test code=BA#) 0.04 K/mm3 0.0-0.2 NUCLEATED RBC # (test code=NRBC#) 0.00 K/mm3 0.0-0.1 MANUAL DIFF REQUIRED (test code=MDIFF) NO, ONLY SCAN NEEDED DIFFERENTIAL [id number] 22:57:00* Test Item Value Reference Range Comments STAIN ACCEPTABILITY (test code=STN ACCEPTABLE) STAIN ACCEPTABLE HYPOCHROMIA (test code=HYPO) 1+ POIKILOCYTOSIS (test code=POIK) 1+ PLATELET ESTIMATE (test code=PLTEST) ADEQUATE PLATELET MORPHOLOGY (test code=PLTMORPH) NORMAL COMPREHENSIVE METABOLIC [id number] 22:19:00* Test Item Value Reference Range Comments SODIUM (test code=NA) 138 mmol/L 136-145 POTASSIUM (test code=K) 4.2 mmol/L 3.5-5.1 CHLORIDE (test code=CL) 106.0 mmol/L 98-107 CARBON DIOXIDE (test code=CO2) 24.0 mmol/L 21-32 ANION GAP (test code=GAP) 12.2 10-20 GLUCOSE (test code=GLU) 152 mg/dL 74-106 BLOOD UREA NITROGEN (test code=BUN) 19 mg/dL 7-18 GLOMERULAR FILTRATION RATE (test code=GFR) > 60 mL/min >=60 Estimated GFR by using Modified MDRD formula.Chronic kidney disease is defined as either kidney damageor GFR <60 mL/min/1.73 m2 for >3 months. CREATININE (test code=CREAT) 1.40 mg/dL 0.7-1.3 BUN/CREATININE RATIO (test code=BUN/CREA) 13.3 10-20 TOTAL PROTEIN (test code=PROT) 7.8 gram/dL 6.4-8.2 ALBUMIN (test code=ALB) 3.8 g/dL 3.4-5.0 GLOBULIN (test code=GLOB) 4.0 gram/dL 2.7-4.2 ALBUMIN/GLOBULIN RATIO (test code=A/G) 1.0 0.75-1.50 CALCIUM (test code=CA) 8.8 mg/dL 8.5-10.1 BILIRUBIN TOTAL (test code=BILT) 0.20 mg/dL 0.0-1.0 SGOT/AST (test code=AST) 31 IUnit/L 15-37 SGPT/ALT (test code=ALT) 36 IUnit/L 12-78 ALKALINE PHOSPHATASE TOTAL (test code=ALKP) 105 IUnit/L 45-117 Note change in reference range due to change in reagent. PROTHROMBIN [id number] 22:16:00* Test Item Value Reference Range Comments PROTHROMBIN TIME PATIENT (test code=PTP) 10.8 seconds 9.0-14.0 INTERNATIONAL NORMAL RATIO (test code=INR) 0.9 0.8-1.2 The therapeutic range for oral anticoagulant therapy formost indications is an international normalized ratio (INR)of between 2.0 and 3.0. The recommended therapeutic INRrange for various clinical situations is listed below: Clinical Situation INR range Pulmonary e mbolism treatment (2.0-3.0)Venous thrombosis treatmentVenous thrombosis prophylaxis (high risk surgery)Prevention of systemic embolism from: Acute myocardial infarction Valvular heart disease Atrial fibrillation Mechanical prosthetic heart valves (2.5-3.5) IS PATIENT ON ANTICOAGULANTS? NCOMPREHENSIVE METABOLIC [id number] 22:10:00 * Test Item Value Reference Range Comments SODIUM (test code=NA) 138 mmol/L 136-145 POTASSIUM (test code=K) 4.2 mmol/L 3.5-5.1 CHLORIDE (test code=CL) 106.0 mmol/L 98-107 CARBON DIOXIDE (test code=CO2) mmol/L 21-32 ANION GAP (test code=GAP) 10-20 GLUCOSE (test code=GLU) mg/dL 74-106 BLOOD UREA NITROGEN (test code=BUN) mg/dL 7-18 GLOMERULAR FILTRATION RATE (test code=GFR) mL/min >=60 CREATININE (test code=CREAT) mg/dL 0.7-1.3 BUN/CREATININE RATIO (test code=BUN/CREA) 10-20 TOTAL PROTEIN (test code=PROT) gram/dL 6.4-8.2 ALBUMIN (test code=ALB) g/dL 3.4-5.0 GLOBULIN (test code=GLOB) gram/dL 2.7-4.2 ALBUMIN/GLOBULIN RATIO (test code=A/G) 0.75-1.50 CALCIUM (test code=CA) mg/dL 8.5-10.1 BILIRUBIN TOTAL (test code=BILT) mg/dL 0.0-1.0 SGOT/AST (test code=AST) IUnit/L 15-37 SGPT/ALT (test code=ALT) IUnit/L 12-78 ALKALINE PHOSPHATASE TOTAL (test code=ALKP) IUnit/L 45-117 CBC W/AUTO [id number] 22:09:00* Test Item Value Reference Range Comments WHITE BLOOD CELL (test code=WBC) 8.4 K/mm3 4.5-12.5 RED BLOOD CELL (test code=RBC) 4.74 mill/mm3 4.0-5.8 HEMOGLOBIN (test code=HGB) 11.5 gram/dL 13.0-17.5 HEMATOCRIT (test code=HCT) 40.0 % 42.0-52.0 MEAN CELL VOLUME (test code=MCV) 84.4 fL 80-98 MEAN CELL HGB (test code=MCH) 24.3 picogram 27.0-33.0 MEAN CELL HGB CONCETRATION (test code=MCHC) 28.8 gram/dL 33.0-36.0 RED CELL DISTRIBUTION WIDTH (test code=RDW) 13.3 % 11.6-16.2 RED CELL DISTRIBUTION WIDTH SD (test code=RDW-SD) 41.4 fL 37.0-51.0 PLATELET COUNT (test code=PLT) 220 K/mm3 150-450 MEAN PLATELET VOLUME (test code=MPV) 10.6 fL 6.7-11.0 NEUTROPHIL % (test code=NT%) 33.2 % 39.0-69.0 IMMATURE GRANULOCYTE % (test code=IG%) 0.2 % 0.0-5.0 LYMPHOCYTE % (test code=LY%) 56.3 % 25.0-55.0 MONOCYTE % (test code=MO%) 7.8 % 0.0-10.0 EOSINOPHIL % (test code=EO%) 2.0 % 0.0-5.0 BASOPHIL % (test code=BA%) 0.5 % 0.0-1.0 NUCLEATED RBC % (test code=NRBC%) 0.0 % 0-0 NEUTROPHIL # (test code=NT#) 2.78 K/mm3 1.8-7.7 IMMATURE GRANULOCYTE # (test code=IG#) 0.02 x10 3/uL 0-0.03 LYMPHOCYTE # (test code=LY#) 4.72 K/mm3 1.0-5.0 MONOCYTE # (test code=MO#) 0.65 K/mm3 0-0.8 EOSINOPHIL # (test code=EO#) 0.17 K/mm3 0.0-0.5 BASOPHIL # (test code=BA#) 0.04 K/mm3 0.0-0.2 NUCLEATED RBC # (test code=NRBC#) 0.00 K/mm3 0.0-0.1 MANUAL DIFF REQUIRED (test code=MDIFF) NO, ONLY SCAN NEEDED DIFFERENTIAL [id number] 22:09:00* Test Item Value Reference Range Comments STAIN ACCEPTABILITY (test code=STN ACCEPTABLE) CABOT RINGS (test code=CAB) MORPHOLOGY COMMENT (test code=MOC) PLATELET ESTIMATE (test code=PLTEST) PLATELET MORPHOLOGY (test code=PLTMORPH) CBC W/AUTO [id number] 22:09:00* Test Item Value Reference Range Comments WHITE BLOOD CELL (test code=WBC) 8.4 K/mm3 4.5-12.5 RED BLOOD CELL (test code=RBC) 4.74 mill/mm3 4.0-5.8 HEMOGLOBIN (test code=HGB) 11.5 gram/dL 13.0-17.5 HEMATOCRIT (test code=HCT) 40.0 % 42.0-52.0 MEAN CELL VOLUME (test code=MCV) 84.4 fL 80-98 MEAN CELL HGB (test code=MCH) 24.3 picogram 27.0-33.0 MEAN CELL HGB CONCETRATION (test code=MCHC) 28.8 gram/dL 33.0-36.0 RED CELL DISTRIBUTION WIDTH (test code=RDW) 13.3 % 11.6-16.2 RED CELL DISTRIBUTION WIDTH SD (test code=RDW-SD) 41.4 fL 37.0-51.0 PLATELET COUNT (test code=PLT) 220 K/mm3 150-450 MEAN PLATELET VOLUME (test code=MPV) 10.6 fL 6.7-11.0 NEUTROPHIL % (test code=NT%) 33.2 % 39.0-69.0 IMMATURE GRANULOCYTE % (test code=IG%) 0.2 % 0.0-5.0 LYMPHOCYTE % (test code=LY%) 56.3 % 25.0-55.0 MONOCYTE % (test code=MO%) 7.8 % 0.0-10.0 EOSINOPHIL % (test code=EO%) 2.0 % 0.0-5.0 BASOPHIL % (test code=BA%) 0.5 % 0.0-1.0 NUCLEATED RBC % (test code=NRBC%) 0.0 % 0-0 NEUTROPHIL # (test code=NT#) 2.78 K/mm3 1.8-7.7 IMMATURE GRANULOCYTE # (test code=IG#) 0.02 x10 3/uL 0-0.03 LYMPHOCYTE # (test code=LY#) 4.72 K/mm3 1.0-5.0 MONOCYTE # (test code=MO#) 0.65 K/mm3 0-0.8 EOSINOPHIL # (test code=EO#) 0.17 K/mm3 0.0-0.5 BASOPHIL # (test code=BA#) 0.04 K/mm3 0.0-0.2 NUCLEATED RBC # (test code=NRBC#) 0.00 K/mm3 0.0-0.1 MANUAL DIFF REQUIRED (test code=MDIFF) NO, ONLY SCAN NEEDED DIFFERENTIAL [id number] 22:09:00* Test Item Value Reference Range Comments STAIN ACCEPTABILITY (test code=STN ACCEPTABLE) CABOT RINGS (test code=CAB) MORPHOLOGY COMMENT (test code=MOC) PLATELET ESTIMATE (test code=PLTEST) PLATELET MORPHOLOGY (test code=PLTMORPH) CBC W/AUTO [id number] 22:09:00* Test Item Value Reference Range Comments WHITE BLOOD CELL (test code=WBC) 8.4 K/mm3 4.5-12.5 RED BLOOD CELL (test code=RBC) 4.74 mill/mm3 4.0-5.8 HEMOGLOBIN (test code=HGB) 11.5 gram/dL 13.0-17.5 HEMATOCRIT (test code=HCT) 40.0 % 42.0-52.0 MEAN CELL VOLUME (test code=MCV) 84.4 fL 80-98 MEAN CELL HGB (test code=MCH) 24.3 picogram 27.0-33.0 MEAN CELL HGB CONCETRATION (test code=MCHC) 28.8 gram/dL 33.0-36.0 RED CELL DISTRIBUTION WIDTH (test code=RDW) 13.3 % 11.6-16.2 RED CELL DISTRIBUTION WIDTH SD (test code=RDW-SD) 41.4 fL 37.0-51.0 PLATELET COUNT (test code=PLT) 220 K/mm3 150-450 MEAN PLATELET VOLUME (test code=MPV) 10.6 fL 6.7-11.0 NEUTROPHIL % (test code=NT%) 33.2 % 39.0-69.0 IMMATURE GRANULOCYTE % (test code=IG%) 0.2 % 0.0-5.0 LYMPHOCYTE % (test code=LY%) 56.3 % 25.0-55.0 MONOCYTE % (test code=MO%) 7.8 % 0.0-10.0 EOSINOPHIL % (test code=EO%) 2.0 % 0.0-5.0 BASOPHIL % (test code=BA%) 0.5 % 0.0-1.0 NUCLEATED RBC % (test code=NRBC%) 0.0 % 0-0 NEUTROPHIL # (test code=NT#) 2.78 K/mm3 1.8-7.7 IMMATURE GRANULOCYTE # (test code=IG#) 0.02 x10 3/uL 0-0.03 LYMPHOCYTE # (test code=LY#) 4.72 K/mm3 1.0-5.0 MONOCYTE # (test code=MO#) 0.65 K/mm3 0-0.8 EOSINOPHIL # (test code=EO#) 0.17 K/mm3 0.0-0.5 BASOPHIL # (test code=BA#) 0.04 K/mm3 0.0-0.2 NUCLEATED RBC # (test code=NRBC#) 0.00 K/mm3 0.0-0.1 MANUAL DIFF REQUIRED (test code=MDIFF) NO, ONLY SCAN NEEDED DIFFERENTIAL [id number] 22:09:00* Test Item Value Reference Range Comments STAIN ACCEPTABILITY (test code=STN ACCEPTABLE) MORPHOLOGY COMMENT (test code=MOC) PLATELET ESTIMATE (test code=PLTEST) PLATELET MORPHOLOGY (test code=PLTMORPH) CBC W/AUTO [id number] 22:09:00* Test Item Value Reference Range Comments WHITE BLOOD CELL (test code=WBC) 8.4 K/mm3 4.5-12.5 RED BLOOD CELL (test code=RBC) 4.74 mill/mm3 4.0-5.8 HEMOGLOBIN (test code=HGB) 11.5 gram/dL 13.0-17.5 HEMATOCRIT (test code=HCT) 40.0 % 42.0-52.0 MEAN CELL VOLUME (test code=MCV) 84.4 fL 80-98 MEAN CELL HGB (test code=MCH) 24.3 picogram 27.0-33.0 MEAN CELL HGB CONCETRATION (test code=MCHC) 28.8 gram/dL 33.0-36.0 RED CELL DISTRIBUTION WIDTH (test code=RDW) 13.3 % 11.6-16.2 RED CELL DISTRIBUTION WIDTH SD (test code=RDW-SD) 41.4 fL 37.0-51.0 PLATELET COUNT (test code=PLT) 220 K/mm3 150-450 MEAN PLATELET VOLUME (test code=MPV) 10.6 fL 6.7-11.0 NEUTROPHIL % (test code=NT%) 33.2 % 39.0-69.0 IMMATURE GRANULOCYTE % (test code=IG%) 0.2 % 0.0-5.0 LYMPHOCYTE % (test code=LY%) 56.3 % 25.0-55.0 MONOCYTE % (test code=MO%) 7.8 % 0.0-10.0 EOSINOPHIL % (test code=EO%) 2.0 % 0.0-5.0 BASOPHIL % (test code=BA%) 0.5 % 0.0-1.0 NUCLEATED RBC % (test code=NRBC%) 0.0 % 0-0 NEUTROPHIL # (test code=NT#) 2.78 K/mm3 1.8-7.7 IMMATURE GRANULOCYTE # (test code=IG#) 0.02 x10 3/uL 0-0.03 LYMPHOCYTE # (test code=LY#) 4.72 K/mm3 1.0-5.0 MONOCYTE # (test code=MO#) 0.65 K/mm3 0-0.8 EOSINOPHIL # (test code=EO#) 0.17 K/mm3 0.0-0.5 BASOPHIL # (test code=BA#) 0.04 K/mm3 0.0-0.2 NUCLEATED RBC # (test code=NRBC#) 0.00 K/mm3 0.0-0.1 MANUAL DIFF REQUIRED (test code=MDIFF) NO, ONLY SCAN NEEDED DIFFERENTIAL [id number] 22:09:00* Test Item Value Reference Range Comments STAIN ACCEPTABILITY (test code=STN ACCEPTABLE) CABOT RINGS (test code=CAB) MORPHOLOGY COMMENT (test code=MOC) PLATELET ESTIMATE (test code=PLTEST) PLATELET MORPHOLOGY (test code=PLTMORPH) - XR [id number] 13:29:00 FAX: Surinder Landa MD [phone] [place]: [address] St: [facility] FAX: Dat Randolph MD [phone] Name: GLENN BAUM [facility] : 1980 Age/S: 38/M [address] Unit #: [id number] Loc: [place], [place] [address] Phys: Dat Gallagher MD Acct: [id number] Dis Date: Status: REG CLI PHONE #: [phone] Exam Date: 06/01/2019 1110 FAX #: [phone] Reason: GERD DISPHAGIA EXAMS: CPT CODE: [id number] XR ESOPHAGUS [id number] HISTORY: Dysphagia. COMPARISON: None available. Location: [facility]. Esophagus is distended well. Free passage through the GE junction. Moderate reflux is noted to the proximal esophagus during the examination. No esophagitis is noted. Esophageal folds are normal. IMPRESSION: No esophagitis. Moderate reflux. No obstruction. Fluoroscopy time utilized was 0.7 minutes and 21 images were obtained during the study. at 1328 Reported and signed by: Nadeem Milton M.D. CC: Surinder Trevino MD; Dat Gallagher MD Technologist: RT WILLIAM(Bernarda) Trnscrd Date/Time/By: 06/01/2019 (5250) : By: [email or web address] Orig Print D/T: S: 06/01/2019 (6875) PAGE 1 Signed Report URINALYSIS [id number] 21:47:00* Test Item Value Reference Range Comments UA COLOR (test code=COLU) Light-Yellow YELLOW UA APPEARANCE (test code=APPU) CLEAR CLEAR UA GLUCOSE DIPSTICK (test code=DGLUU) NEGATIVE mg/dL NEGATIVE UA BILIRUBIN DIPSTICK (test code=BILU) NEGATIVE mg/dL NEGATIVE UA KETONE DIPSTICK (test code=KETU) NEGATIVE mg/dL NEGATIVE UA SPECIFIC GRAVITY (test code=SGU) 1.021 1.001-1.035 UA BLOOD DIPSTICK (test code=NIRMAL) Negative mg/dL NEGATIVE UA PH DIPSTICK (test code=KRUNAL) 6.0 5.0-8.0 UA PROTEIN DIPSTICK (test code=PROU) NEGATIVE mg/dL NEGATIVE UA UROBILINIOGEN DIPSTICK (test code=URO) Normal mg/dL NEGATIVE UA NITRITE DIPSTICK (test code=ARAMIS) NEGATIVE NEGATIVE UA LEUKOCYTE ESTERASE W REFLEX (test code=LEUUR) NEGATIVE Yoni/uL NEGATIVE UA WBC (test code=WBCU) 0-5 per HPF 0-5 UA RBC (test code=RBCU) NONE SEEN #/HPF 0-5 UA EPITHELIAL CELLS (test code=EPIU) FEW per HPF FEW UA BACTERIA (test code=BACU) NONE SEEN #/HPF NONE UA MUCUS (test code=MUCU) FEW #/LPF FEW Urine Source? Clean CatchCBC W/O [id number] 20:12:00* Test Item Value Reference Range Comments WHITE BLOOD CELL (test code=WBC) 9.6 K/mm3 4.5-12.5 RED BLOOD CELL (test code=RBC) 4.70 mill/mm3 4.0-5.8 HEMOGLOBIN (test code=HGB) 11.7 gram/dL 13.0-17.5 HEMATOCRIT (test code=HCT) 38.3 % 42.0-52.0 MEAN CELL VOLUME (test code=MCV) 81.5 fL 80-98 MEAN CELL HGB (test code=MCH) 24.9 picogram 27.0-33.0 MEAN CELL HGB CONCETRATION (test code=MCHC) 30.5 gram/dL 33.0-36.0 RED CELL DISTRIBUTION WIDTH (test code=RDW) 13.2 % 11.6-16.2 PLATELET COUNT (test code=PLT) 227 K/mm3 150-450 MEAN PLATELET VOLUME (test code=MPV) 11.2 fL 6.7-11.0 CLOTTED, REDRAW REQUESTED FROM ER, [id number],V.LAB.04/23/19 1944BASIC METABOLIC [id number] 19:46:00* Test Item Value Reference Range Comments SODIUM (test code=NA) 137 mmol/L 136-145 POTASSIUM (test code=K) 4.6 mmol/L 3.5-5.1 CHLORIDE (test code=CL) 103.0 mmol/L 98-107 CARBON DIOXIDE (test code=CO2) 25.0 mmol/L 21-32 ANION GAP (test code=GAP) 13.6 10-20 GLUCOSE (test code=GLU) 154 mg/dL 74-106 BLOOD UREA NITROGEN (test code=BUN) 21 mg/dL 7-18 GLOMERULAR FILTRATION RATE (test code=GFR) 59 mL/min >=60 Estimated GFR by using Modified MDRD formula.Chronic kidney disease is defined as either kidney damageor GFR <60 mL/min/1.73 m2 for >3 months. CREATININE (test code=CREAT) 1.60 mg/dL 0.7-1.3 BUN/CREATININE RATIO (test code=BUN/CREA) 13.1 10-20 CALCIUM (test code=CA) 9.4 mg/dL 8.5-10.1 HEPATIC FUNCTION [id number] 19:46:00* Test Item Value Reference Range Comments TOTAL PROTEIN (test code=PROT) 8.3 gram/dL 6.4-8.2 ALBUMIN (test code=ALB) 4.2 g/dL 3.4-5.0 GLOBULIN (test code=GLOB) 4.1 gram/dL 2.7-4.2 ALBUMIN/GLOBULIN RATIO (test code=A/G) 1.0 0.75-1.50 BILIRUBIN TOTAL (test code=BILT) 0.50 mg/dL 0.0-1.0 BILIRUBIN DIRECT (test code=BILD) 0.16 mg/dL 0.0-0.20 SGOT/AST (test code=AST) 30 IUnit/L 15-37 SGPT/ALT (test code=ALT) 39 IUnit/L 12-78 ALKALINE PHOSPHATASE TOTAL (test code=ALKP) 102 IUnit/L 45-117 Note change in reference range due to change in reagent. [id number] 19:46:00* Test Item Value Reference Range Comments LIPASE (test code=LIP) 150 U/L 73.0-393.0 BASIC METABOLIC [id number] 19:37:00* Test Item Value Reference Range Comments SODIUM (test code=NA) 137 mmol/L 136-145 POTASSIUM (test code=K) 4.6 mmol/L 3.5-5.1 CHLORIDE (test code=CL) 103.0 mmol/L 98-107 CARBON DIOXIDE (test code=CO2) mmol/L 21-32 ANION GAP (test code=GAP) 10-20 GLUCOSE (test code=GLU) mg/dL 74-106 BLOOD UREA NITROGEN (test code=BUN) mg/dL 7-18 GLOMERULAR FILTRATION RATE (test code=GFR) mL/min >=60 CREATININE (test code=CREAT) mg/dL 0.7-1.3 BUN/CREATININE RATIO (test code=BUN/CREA) 10-20 CALCIUM (test code=CA) mg/dL 8.5-10.1 HEPATIC FUNCTION [id number] 19:37:00* Test Item Value Reference Range Comments TOTAL PROTEIN (test code=PROT) gram/dL 6.4-8.2 ALBUMIN (test code=ALB) g/dL 3.4-5.0 GLOBULIN (test code=GLOB) gram/dL 2.7-4.2 ALBUMIN/GLOBULIN RATIO (test code=A/G) 0.75-1.50 BILIRUBIN TOTAL (test code=BILT) mg/dL 0.0-1.0 BILIRUBIN DIRECT (test code=BILD) mg/dL 0.0-0.20 SGOT/AST (test code=AST) IUnit/L 15-37 SGPT/ALT (test code=ALT) IUnit/L 12-78 ALKALINE PHOSPHATASE TOTAL (test code=ALKP) IUnit/L 45-117 [id number] 19:37:00* Test Item Value Reference Range Comments LIPASE (test code=LIP) U/L 73.0-393.0 - PET/[id number] 13:07:00 FAX: Surinder Landa MD [phone] [place]: B St: [facility] FAX: Mei Peralta MD [phone] Name: GLENN BAUM [facility] : 1980 Age/S: 38/M [address] Unit #: [id number] Loc: [place] [address] Phys: Mei Peralta MD Acct: [id number] Dis Date: Status: DEP CLI PHONE #: [phone] Exam Date: 02/26/2019 1100 FAX #: [phone] Reason: C71.9 EXAMS: CPT CODE: [id number] PET/CT TUMOR SK BS MIDTH 03322 HISTORY: C71.9. COMPARISON: CT abdomen and pelvis from September 26, 2018. PET/CT SCAN: 12.7 mm of FDG administered. Images obtained from the skull base to the upper thighs 1 hour postinjection. Blood glucose level=98 mg/dL. HEAD AND NECK: Intense uptake within the brain parenchyma limits evaluation. Physiologic pharyngeal upt homero. CHEST: No pathologic hilar, mediastinal or axillary adenopath y or uptake. Port-A-Cath on the left. No chest wall uptake. No lung parenchymal uptake or mass is noted. ABDOMEN: No liver or adrenal uptake. Previously noted pathologic lymph node in the left para-aortic loc ation at the level of the superior pole of the left kidney is decreased fr om 2.6 to 1.5 cm with SUV uptake ranging up to 1.5 and appears metabolical ly inactive. No other pathologic mesenteric, retroperitoneal or retrocrura l adenopathy. No splenic or pancreatic uptake. Excretion from both kidneys without abnormal uptake. Minimal excretion into the bowel. PELVIS: Extensive excretion into the right colon. Excretion into the urina ry bladder. No prostate uptake. No pelvic pathologic adenopathy or uptake. MUSCULOSKELETAL: No metastatic disease. IMPRESSIO N: Decreased size of the left para-aortic retroperitoneal lymp h node to 1.5 cm from 2.6 cm. SUV uptake of 1.5 suggests the lesion to b e metabolically inactive. No other pathologic mesenteric, retrop eritoneal or retrocrural adenopathy or uptake. No other areas of metasta ses or abnormal uptake. Electronically Signed by Aida rowland 03/03/2019 at 130 Reported and signed by: Nadeem hyde M.D. PAGE 1 Signed Report ( CONTINUED) FAX: Surinder Landa MD [phone] [place]: St: [place] FAX: Mei Peralta MD [phone] Name: GLENN BAUM [facility] : 1980 Age/S: 38/[facility] [address] [facility] [id number] Loc: [place], [place] [address] Phys: Mei Peralta MD Acct: [id number] Dis Date: Status: DEP CLI PHONE #: [phone] Exam Date: 02/26/2019 1100 FAX #: [phone] Reason: C71.9 EXAMS: CPT CODE: [id number] PET/CT TUMOR SK BS MIDTH 73455 <Continued> CC: Surinder Trevino MD; Mei Peralta MD Technologist: Jackie Parekh RT(N) Trnscrd Date/Time/By: 03/03/2019 (1307) : By: [email or web address] Orig Print D/T: S: 03/03/2019 (8616) PAGE 2 Signed Report URINALYSIS [id number] 14:09:00* Test Item Value Reference Range Comments UA COLOR (test code=COLU) YELLOW YELLOW UA APPEARANCE (test code=APPU) CLEAR CLEAR UA GLUCOSE DIPSTICK (test code=DGLUU) NEGATIVE mg/dL NEGATIVE UA BILIRUBIN DIPSTICK (test code=BILU) NEGATIVE mg/dL NEGATIVE UA KETONE DIPSTICK (test code=KETU) NEGATIVE mg/dL NEGATIVE UA SPECIFIC GRAVITY (test code=SGU) 1.022 1.001-1.035 UA BLOOD DIPSTICK (test code=NIRMAL) Negative mg/dL NEGATIVE UA PH DIPSTICK (test code=KRUNAL) 6.5 5.0-8.0 UA PROTEIN DIPSTICK (test code=PROU) NEGATIVE mg/dL NEGATIVE UA UROBILINIOGEN DIPSTICK (test code=URO) Normal mg/dL NEGATIVE UA NITRITE DIPSTICK (test code=ARAMIS) NEGATIVE NEGATIVE UA LEUKOCYTE ESTERASE W REFLEX (test code=LEUUR) NEGATIVE Yoni/uL NEGATIVE UA WBC (test code=WBCU) 0-5 per HPF 0-5 UA RBC (test code=RBCU) 0-2 #/HPF 0-5 UA EPITHELIAL CELLS (test code=EPIU) FEW per HPF FEW UA BACTERIA (test code=BACU) NONE SEEN per HPF NONE UA MUCUS (test code=MUCU) FEW #/LPF FEW Urine Source? Clean CatchURINALYSIS [id number] 14:08:00* Test Item Value Reference Range Comments UA COLOR (test code=COLU) YELLOW YELLOW UA APPEARANCE (test code=APPU) CLEAR CLEAR UA GLUCOSE DIPSTICK (test code=DGLUU) NEGATIVE mg/dL NEGATIVE UA BILIRUBIN DIPSTICK (test code=BILU) NEGATIVE mg/dL NEGATIVE UA KETONE DIPSTICK (test code=KETU) NEGATIVE mg/dL NEGATIVE UA SPECIFIC GRAVITY (test code=SGU) 1.022 1.001-1.035 UA BLOOD DIPSTICK (test code=NIRMAL) Negative mg/dL NEGATIVE UA PH DIPSTICK (test code=KRUNAL) 6.5 5.0-8.0 UA PROTEIN DIPSTICK (test code=PROU) NEGATIVE mg/dL NEGATIVE UA UROBILINIOGEN DIPSTICK (test code=URO) Normal mg/dL NEGATIVE UA NITRITE DIPSTICK (test code=ARAMIS) NEGATIVE NEGATIVE UA LEUKOCYTE ESTERASE W REFLEX (test code=LEUUR) NEGATIVE Yoni/uL NEGATIVE UA WBC (test code=WBCU) 0-5 per HPF 0-5 UA RBC (test code=RBCU) 0-2 #/HPF 0-5 UA EPITHELIAL CELLS (test code=EPIU) FEW per HPF FEW UA BACTERIA (test code=BACU) per HPF NONE UA MUCUS (test code=MUCU) FEW #/LPF FEW Urine Source? Clean CatchURINALYSIS [id number] 14:07:00* Test Item Value Reference Range Comments UA COLOR (test code=COLU) YELLOW YELLOW UA APPEARANCE (test code=APPU) CLEAR CLEAR UA GLUCOSE DIPSTICK (test code=DGLUU) NEGATIVE mg/dL NEGATIVE UA BILIRUBIN DIPSTICK (test code=BILU) NEGATIVE mg/dL NEGATIVE UA KETONE DIPSTICK (test code=KETU) NEGATIVE mg/dL NEGATIVE UA SPECIFIC GRAVITY (test code=SGU) 1.022 1.001-1.035 UA BLOOD DIPSTICK (test code=NIRMAL) Negative mg/dL NEGATIVE UA PH DIPSTICK (test code=KRUNAL) 6.5 5.0-8.0 UA PROTEIN DIPSTICK (test code=PROU) NEGATIVE mg/dL NEGATIVE UA UROBILINIOGEN DIPSTICK (test code=URO) Normal mg/dL NEGATIVE UA NITRITE DIPSTICK (test code=ARAMIS) NEGATIVE NEGATIVE UA LEUKOCYTE ESTERASE W REFLEX (test code=LEUUR) NEGATIVE Yoni/uL NEGATIVE UA WBC (test code=WBCU) per HPF 0-5 UA RBC (test code=RBCU) per HPF 0-5 UA EPITHELIAL CELLS (test code=EPIU) per HPF Few UA BACTERIA (test code=BACU) per HPF NONE Urine Source? Clean CatchBASIC METABOLIC [id number] 13:30:00* Test Item Value Reference Range Comments SODIUM (test code=NA) 138 mmol/L 136-145 POTASSIUM (test code=K) 4.7 mmol/L 3.5-5.1 CHLORIDE (test code=CL) 104.0 mmol/L 98-107 CARBON DIOXIDE (test code=CO2) 29.0 mmol/L 21-32 ANION GAP (test code=GAP) 9.7 10-20 GLUCOSE (test code=GLU) 88 mg/dL 74-106 BLOOD UREA NITROGEN (test code=BUN) 15 mg/dL 7-18 GLOMERULAR FILTRATION RATE (test code=GFR) > 60 mL/min >=60 Estimated GFR by using Modified MDRD formula.Chronic kidney disease is defined as either kidney damageor GFR <60 mL/min/1.73 m2 for >3 months. CREATININE (test code=CREAT) 1.30 mg/dL 0.7-1.3 BUN/CREATININE RATIO (test code=BUN/CREA) 11.7 10-20 CALCIUM (test code=CA) 9.6 mg/dL 8.5-10.1 HEPATIC FUNCTION [id number] 13:30:00* Test Item Value Reference Range Comments TOTAL PROTEIN (test code=PROT) 7.7 gram/dL 6.4-8.2 ALBUMIN (test code=ALB) 3.9 g/dL 3.4-5.0 GLOBULIN (test code=GLOB) 3.8 gram/dL 2.7-4.2 ALBUMIN/GLOBULIN RATIO (test code=A/G) 1.0 0.75-1.50 BILIRUBIN TOTAL (test code=BILT) 0.40 mg/dL 0.0-1.0 BILIRUBIN DIRECT (test code=BILD) 0.16 mg/dL 0.0-0.20 SGOT/AST (test code=AST) 18 IUnit/L 15-37 SGPT/ALT (test code=ALT) 38 IUnit/L 12-78 ALKALINE PHOSPHATASE TOTAL (test code=ALKP) 81 IUnit/L 45-117 Note change in reference range due to change in reagent. [id number] 13:30:00* Test Item Value Reference Range Comments LIPASE (test code=LIP) 143 U/L 73.0-393.0 [id number] 13:30:00* Test Item Value Reference Range Comments MAGNESIUM (test code=MAG) 2.0 mg/dL 1.8-2.4 CBC W/O [id number] 13:17:00* Test Item Value Reference Range Comments WHITE BLOOD CELL (test code=WBC) 4.2 K/mm3 4.5-12.5 RED BLOOD CELL (test code=RBC) 4.57 mill/mm3 4.0-5.8 HEMOGLOBIN (test code=HGB) 11.3 gram/dL 13.0-17.5 HEMATOCRIT (test code=HCT) 37.7 % 42.0-52.0 MEAN CELL VOLUME (test code=MCV) 82.5 fL 80-98 MEAN CELL HGB (test code=MCH) 24.7 picogram 27.0-33.0 MEAN CELL HGB CONCETRATION (test code=MCHC) 30.0 gram/dL 33.0-36.0 RED CELL DISTRIBUTION WIDTH (test code=RDW) 15.7 % 11.6-16.2 PLATELET COUNT (test code=PLT) 255 K/mm3 150-450 MEAN PLATELET VOLUME (test code=MPV) 10.6 fL 6.7-11.0 URINALYSIS [id number] 10:14:00* Test Item Value Reference Range Comments UA COLOR (test code=COLU) Light-Yellow YELLOW UA APPEARANCE (test code=APPU) CLEAR CLEAR UA GLUCOSE DIPSTICK (test code=DGLUU) NEGATIVE mg/dL NEGATIVE UA BILIRUBIN DIPSTICK (test code=BILU) NEGATIVE mg/dL NEGATIVE UA KETONE DIPSTICK (test code=KETU) NEGATIVE mg/dL NEGATIVE UA SPECIFIC GRAVITY (test code=SGU) 1.018 1.001-1.035 UA BLOOD DIPSTICK (test code=NIRMAL) Negative mg/dL NEGATIVE UA PH DIPSTICK (test code=RKUNAL) 6.0 5.0-8.0 UA PROTEIN DIPSTICK (test code=PROU) NEGATIVE mg/dL NEGATIVE UA UROBILINIOGEN DIPSTICK (test code=URO) Normal mg/dL NEGATIVE UA NITRITE DIPSTICK (test code=ARAMIS) NEGATIVE NEGATIVE UA LEUKOCYTE ESTERASE W REFLEX (test code=LEUUR) 25 Yoni/uL (Trace) Yoni/uL NEGATIVE UA WBC (test code=WBCU) 6-10 per HPF 0-5 UA RBC (test code=RBCU) 0-2 #/HPF 0-5 UA EPITHELIAL CELLS (test code=EPIU) FEW per HPF FEW UA BACTERIA (test code=BACU) FEW #/HPF NONE UA MUCUS (test code=MUCU) FEW #/LPF FEW Urine Source? Clean Catch- XR CHEST 1 [id number] 08:13:00 FAX: Surinder Landa MD [phone] [place]: [address] St: ADM Name: Jocelyn GLENN ALAN [facility] : [birth year] Age/S: 38/M [address] Unit #: [id number] Loc: [address] [place] [address] Phys: Surinder Trevino MD Acct: [id number] Dis Date: Status: ADM IN PHONE #: [phone] Exam Date: 01/05/2019 0800 FAX #: [phone] Reason: INCREASING TEMPERATURE EXAMS: CPT CODE: [id number] XR CHEST 1 V 82997 CLINICAL HISTORY: INCREASING TEMPE RATURE TECHNIQUE: AP chest x-ray COMPARISON: 01/04/19 IMPRESSION: No significant interval change. No airspace consolidation or pleural effusion. Normal heart size. Mediast inal silhouette is unremarkable. Left Port-A-Cath. at 0813 Reported and signed by: Mey Hand D.O. CC: Surinder Trevino MD Technologist: YAW KLEIN(R) Trnscrd Date/Time/By: 019 (08) : By: [email or web address] Orig Print D/T: S: 01/06/2019 (16) PAGE 1 Signed Report BASIC METABOLIC [id number] 06:39:00* Test Item Value Reference Range Comments SODIUM (test code=NA) 138 mmol/L 136-145 POTASSIUM (test code=K) 4.3 mmol/L 3.5-5.1 CHLORIDE (test code=CL) 102.0 mmol/L 98-107 CARBON DIOXIDE (test code=CO2) 29.0 mmol/L 21-32 ANION GAP (test code=GAP) 11.3 10-20 GLUCOSE (test code=GLU) 97 mg/dL 74-106 BLOOD UREA NITROGEN (test code=BUN) 23 mg/dL 7-18 GLOMERULAR FILTRATION RATE (test code=GFR) > 60 mL/min >=60 Estimated GFR by using Modified MDRD formula.Chronic kidney disease is defined as either kidney damageor GFR <60 mL/min/1.73 m2 for >3 months. CREATININE (test code=CREAT) 1.40 mg/dL 0.7-1.3 BUN/CREATININE RATIO (test code=BUN/CREA) 16.4 10-20 CALCIUM (test code=CA) 9.3 mg/dL 8.5-10.1 CBC W/MANUAL [id number] 06:31:00* Test Item Value Reference Range Comments WHITE BLOOD CELL (test code=WBC) 6.9 K/mm3 4.5-12.5 RED BLOOD CELL (test code=RBC) 4.86 mill/mm3 4.0-5.8 HEMOGLOBIN (test code=HGB) 11.7 gram/dL 13.0-17.5 HEMATOCRIT (test code=HCT) 40.2 % 42.0-52.0 MEAN CELL VOLUME (test code=MCV) 82.7 fL 80-98 MEAN CELL HGB (test code=MCH) 24.1 picogram 27.0-33.0 MEAN CELL HGB CONCETRATION (test code=MCHC) 29.1 gram/dL 33.0-36.0 RED CELL DISTRIBUTION WIDTH (test code=RDW) 14.9 % 11.6-16.2 RED CELL DISTRIBUTION WIDTH SD (test code=RDW-SD) 45.6 fL 37.0-51.0 PLATELET COUNT (test code=PLT) 207 K/mm3 150-450 MEAN PLATELET VOLUME (test code=MPV) 10.8 fL 6.7-11.0 IMMATURE GRANULOCYTE % (test code=IG%) 0.6 % 0.0-5.0 NUCLEATED RBC % (test code=NRBC%) 0.0 % 0-0 NEUTROPHIL # (test code=NT#) 4.20 K/mm3 1.8-7.7 IMMATURE GRANULOCYTE # (test code=IG#) 0.04 x10 3/uL 0-0.03 LYMPHOCYTE # (test code=LY#) 2.21 K/mm3 1.0-5.0 MONOCYTE # (test code=MO#) 0.23 K/mm3 0-0.8 EOSINOPHIL # (test code=EO#) 0.16 K/mm3 0.0-0.5 BASOPHIL # (test code=BA#) 0.04 K/mm3 0.0-0.2 NUCLEATED RBC # (test code=NRBC#) 0.00 K/mm3 0.0-0.1 MANUAL DIFF REQUIRED (test code=MDIFF) YES STAIN ACCEPTABILITY (test code=STN ACCEPTABLE) STAIN ACCEPTABLE TOTAL CELLS COUNTED (test code=TCC) 113 #CELLS SEGMENTED NEUTROPHILS (test code=SEG) 62.0 % 39-69 BAND NEUTROPHIL (test code=BAND) 0 % 0-10 LYMPHOCYTE (test code=LYMPH) 33.6 % 25-55 REACTIVE LYMPH (test code=RELYMPH) 0 % MONOCYTE (test code=MON) 0 % 0-10 EOSINOPHIL (test code=EOS) 4.4 % 0.0-5.0 BASOPHIL (test code=BASO) 0 % 0-1.0 METAMYELOCYTE (test code=META) 0 % 0-0 MYELOCYTE (test code=MYELO) 0 % 0.0-0.0 PROMYELOCYTE (test code=PROM) 0 % 0-0 HYPOCHROMIA (test code=HYPO) 1+ POIKILOCYTOSIS (test code=POIK) 1+ TEAR DROP CELLS (test code=TEAR) 1+ PLATELET ESTIMATE (test code=PLTEST) ADEQUATE PLATELET MORPHOLOGY (test code=PLTMORPH) NORMAL IMMATURE FORMS (test code=IMMAT) 0 % 0-0 BASIC METABOLIC [id number] 06:21:00* Test Item Value Reference Range Comments SODIUM (test code=NA) 138 mmol/L 136-145 POTASSIUM (test code=K) 4.3 mmol/L 3.5-5.1 CHLORIDE (test code=CL) 102.0 mmol/L 98-107 CARBON DIOXIDE (test code=CO2) mmol/L 21-32 ANION GAP (test code=GAP) 10-20 GLUCOSE (test code=GLU) mg/dL 74-106 BLOOD UREA NITROGEN (test code=BUN) mg/dL 7-18 GLOMERULAR FILTRATION RATE (test code=GFR) mL/min >=60 CREATININE (test code=CREAT) mg/dL 0.7-1.3 BUN/CREATININE RATIO (test code=BUN/CREA) 10-20 CALCIUM (test code=CA) mg/dL 8.5-10.1 CBC W/MANUAL [id number] 05:40:00* Test Item Value Reference Range Comments WHITE BLOOD CELL (test code=WBC) 6.9 K/mm3 4.5-12.5 RED BLOOD CELL (test code=RBC) 4.86 mill/mm3 4.0-5.8 HEMOGLOBIN (test code=HGB) 11.7 gram/dL 13.0-17.5 HEMATOCRIT (test code=HCT) 40.2 % 42.0-52.0 MEAN CELL VOLUME (test code=MCV) 82.7 fL 80-98 MEAN CELL HGB (test code=MCH) 24.1 picogram 27.0-33.0 MEAN CELL HGB CONCETRATION (test code=MCHC) 29.1 gram/dL 33.0-36.0 RED CELL DISTRIBUTION WIDTH (test code=RDW) 14.9 % 11.6-16.2 RED CELL DISTRIBUTION WIDTH SD (test code=RDW-SD) 45.6 fL 37.0-51.0 PLATELET COUNT (test code=PLT) 207 K/mm3 150-450 MEAN PLATELET VOLUME (test code=MPV) 10.8 fL 6.7-11.0 IMMATURE GRANULOCYTE % (test code=IG%) 0.6 % 0.0-5.0 NUCLEATED RBC % (test code=NRBC%) 0.0 % 0-0 NEUTROPHIL # (test code=NT#) 4.20 K/mm3 1.8-7.7 IMMATURE GRANULOCYTE # (test code=IG#) 0.04 x10 3/uL 0-0.03 LYMPHOCYTE # (test code=LY#) 2.21 K/mm3 1.0-5.0 MONOCYTE # (test code=MO#) 0.23 K/mm3 0-0.8 EOSINOPHIL # (test code=EO#) 0.16 K/mm3 0.0-0.5 BASOPHIL # (test code=BA#) 0.04 K/mm3 0.0-0.2 NUCLEATED RBC # (test code=NRBC#) 0.00 K/mm3 0.0-0.1 MANUAL DIFF REQUIRED (test code=MDIFF) YES STAIN ACCEPTABILITY (test code=STN ACCEPTABLE) TOTAL CELLS COUNTED (test code=TCC) #CELLS SEGMENTED NEUTROPHILS (test code=SEG) % 39-69 LYMPHOCYTE (test code=LYMPH) % 25-55 MONOCYTE (test code=MON) % 0-10 EOSINOPHIL (test code=EOS) % 0.0-5.0 CABOT RINGS (test code=CAB) MORPHOLOGY COMMENT (test code=MOC) PLATELET ESTIMATE (test code=PLTEST) PLATELET MORPHOLOGY (test code=PLTMORPH) CBC W/MANUAL [id number] 05:40:00* Test Item Value Reference Range Comments WHITE BLOOD CELL (test code=WBC) 6.9 K/mm3 4.5-12.5 RED BLOOD CELL (test code=RBC) 4.86 mill/mm3 4.0-5.8 HEMOGLOBIN (test code=HGB) 11.7 gram/dL 13.0-17.5 HEMATOCRIT (test code=HCT) 40.2 % 42.0-52.0 MEAN CELL VOLUME (test code=MCV) 82.7 fL 80-98 MEAN CELL HGB (test code=MCH) 24.1 picogram 27.0-33.0 MEAN CELL HGB CONCETRATION (test code=MCHC) 29.1 gram/dL 33.0-36.0 RED CELL DISTRIBUTION WIDTH (test code=RDW) 14.9 % 11.6-16.2 RED CELL DISTRIBUTION WIDTH SD (test code=RDW-SD) 45.6 fL 37.0-51.0 PLATELET COUNT (test code=PLT) 207 K/mm3 150-450 MEAN PLATELET VOLUME (test code=MPV) 10.8 fL 6.7-11.0 IMMATURE GRANULOCYTE % (test code=IG%) 0.6 % 0.0-5.0 NUCLEATED RBC % (test code=NRBC%) 0.0 % 0-0 NEUTROPHIL # (test code=NT#) 4.20 K/mm3 1.8-7.7 IMMATURE GRANULOCYTE # (test code=IG#) 0.04 x10 3/uL 0-0.03 LYMPHOCYTE # (test code=LY#) 2.21 K/mm3 1.0-5.0 MONOCYTE # (test code=MO#) 0.23 K/mm3 0-0.8 EOSINOPHIL # (test code=EO#) 0.16 K/mm3 0.0-0.5 BASOPHIL # (test code=BA#) 0.04 K/mm3 0.0-0.2 NUCLEATED RBC # (test code=NRBC#) 0.00 K/mm3 0.0-0.1 MANUAL DIFF REQUIRED (test code=MDIFF) YES STAIN ACCEPTABILITY (test code=STN ACCEPTABLE) TOTAL CELLS COUNTED (test code=TCC) #CELLS SEGMENTED NEUTROPHILS (test code=SEG) % 39-69 LYMPHOCYTE (test code=LYMPH) % 25-55 MONOCYTE (test code=MON) % 0-10 EOSINOPHIL (test code=EOS) % 0.0-5.0 CABOT RINGS (test code=CAB) MORPHOLOGY COMMENT (test code=MOC) PLATELET ESTIMATE (test code=PLTEST) PLATELET MORPHOLOGY (test code=PLTMORPH) CBC W/MANUAL [id number] 05:40:00* Test Item Value Reference Range Comments WHITE BLOOD CELL (test code=WBC) 6.9 K/mm3 4.5-12.5 RED BLOOD CELL (test code=RBC) 4.86 mill/mm3 4.0-5.8 HEMOGLOBIN (test code=HGB) 11.7 gram/dL 13.0-17.5 HEMATOCRIT (test code=HCT) 40.2 % 42.0-52.0 MEAN CELL VOLUME (test code=MCV) 82.7 fL 80-98 MEAN CELL HGB (test code=MCH) 24.1 picogram 27.0-33.0 MEAN CELL HGB CONCETRATION (test code=MCHC) 29.1 gram/dL 33.0-36.0 RED CELL DISTRIBUTION WIDTH (test code=RDW) 14.9 % 11.6-16.2 RED CELL DISTRIBUTION WIDTH SD (test code=RDW-SD) 45.6 fL 37.0-51.0 PLATELET COUNT (test code=PLT) 207 K/mm3 150-450 MEAN PLATELET VOLUME (test code=MPV) 10.8 fL 6.7-11.0 IMMATURE GRANULOCYTE % (test code=IG%) 0.6 % 0.0-5.0 NUCLEATED RBC % (test code=NRBC%) 0.0 % 0-0 NEUTROPHIL # (test code=NT#) 4.20 K/mm3 1.8-7.7 IMMATURE GRANULOCYTE # (test code=IG#) 0.04 x10 3/uL 0-0.03 LYMPHOCYTE # (test code=LY#) 2.21 K/mm3 1.0-5.0 MONOCYTE # (test code=MO#) 0.23 K/mm3 0-0.8 EOSINOPHIL # (test code=EO#) 0.16 K/mm3 0.0-0.5 BASOPHIL # (test code=BA#) 0.04 K/mm3 0.0-0.2 NUCLEATED RBC # (test code=NRBC#) 0.00 K/mm3 0.0-0.1 MANUAL DIFF REQUIRED (test code=MDIFF) YES STAIN ACCEPTABILITY (test code=STN ACCEPTABLE) TOTAL CELLS COUNTED (test code=TCC) #CELLS SEGMENTED NEUTROPHILS (test code=SEG) % 39-69 LYMPHOCYTE (test code=LYMPH) % 25-55 MONOCYTE (test code=MON) % 0-10 EOSINOPHIL (test code=EOS) % 0.0-5.0 MORPHOLOGY COMMENT (test code=MOC) PLATELET ESTIMATE (test code=PLTEST) PLATELET MORPHOLOGY (test code=PLTMORPH) CBC W/MANUAL [id number] 05:40:00* Test Item Value Reference Range Comments WHITE BLOOD CELL (test code=WBC) 6.9 K/mm3 4.5-12.5 RED BLOOD CELL (test code=RBC) 4.86 mill/mm3 4.0-5.8 HEMOGLOBIN (test code=HGB) 11.7 gram/dL 13.0-17.5 HEMATOCRIT (test code=HCT) 40.2 % 42.0-52.0 MEAN CELL VOLUME (test code=MCV) 82.7 fL 80-98 MEAN CELL HGB (test code=MCH) 24.1 picogram 27.0-33.0 MEAN CELL HGB CONCETRATION (test code=MCHC) 29.1 gram/dL 33.0-36.0 RED CELL DISTRIBUTION WIDTH (test code=RDW) 14.9 % 11.6-16.2 RED CELL DISTRIBUTION WIDTH SD (test code=RDW-SD) 45.6 fL 37.0-51.0 PLATELET COUNT (test code=PLT) 207 K/mm3 150-450 MEAN PLATELET VOLUME (test code=MPV) 10.8 fL 6.7-11.0 IMMATURE GRANULOCYTE % (test code=IG%) 0.6 % 0.0-5.0 NUCLEATED RBC % (test code=NRBC%) 0.0 % 0-0 NEUTROPHIL # (test code=NT#) 4.20 K/mm3 1.8-7.7 IMMATURE GRANULOCYTE # (test code=IG#) 0.04 x10 3/uL 0-0.03 LYMPHOCYTE # (test code=LY#) 2.21 K/mm3 1.0-5.0 MONOCYTE # (test code=MO#) 0.23 K/mm3 0-0.8 EOSINOPHIL # (test code=EO#) 0.16 K/mm3 0.0-0.5 BASOPHIL # (test code=BA#) 0.04 K/mm3 0.0-0.2 NUCLEATED RBC # (test code=NRBC#) 0.00 K/mm3 0.0-0.1 MANUAL DIFF REQUIRED (test code=MDIFF) YES STAIN ACCEPTABILITY (test code=STN ACCEPTABLE) TOTAL CELLS COUNTED (test code=TCC) #CELLS SEGMENTED NEUTROPHILS (test code=SEG) % 39-69 LYMPHOCYTE (test code=LYMPH) % 25-55 MONOCYTE (test code=MON) % 0-10 MORPHOLOGY COMMENT (test code=MOC) PLATELET ESTIMATE (test code=PLTEST) PLATELET MORPHOLOGY (test code=PLTMORPH) CBC W/MANUAL [id number] 05:40:00* Test Item Value Reference Range Comments WHITE BLOOD CELL (test code=WBC) 6.9 K/mm3 4.5-12.5 RED BLOOD CELL (test code=RBC) 4.86 mill/mm3 4.0-5.8 HEMOGLOBIN (test code=HGB) 11.7 gram/dL 13.0-17.5 HEMATOCRIT (test code=HCT) 40.2 % 42.0-52.0 MEAN CELL VOLUME (test code=MCV) 82.7 fL 80-98 MEAN CELL HGB (test code=MCH) 24.1 picogram 27.0-33.0 MEAN CELL HGB CONCETRATION (test code=MCHC) 29.1 gram/dL 33.0-36.0 RED CELL DISTRIBUTION WIDTH (test code=RDW) 14.9 % 11.6-16.2 RED CELL DISTRIBUTION WIDTH SD (test code=RDW-SD) 45.6 fL 37.0-51.0 PLATELET COUNT (test code=PLT) 207 K/mm3 150-450 MEAN PLATELET VOLUME (test code=MPV) 10.8 fL 6.7-11.0 IMMATURE GRANULOCYTE % (test code=IG%) 0.6 % 0.0-5.0 NUCLEATED RBC % (test code=NRBC%) 0.0 % 0-0 NEUTROPHIL # (test code=NT#) 4.20 K/mm3 1.8-7.7 IMMATURE GRANULOCYTE # (test code=IG#) 0.04 x10 3/uL 0-0.03 LYMPHOCYTE # (test code=LY#) 2.21 K/mm3 1.0-5.0 MONOCYTE # (test code=MO#) 0.23 K/mm3 0-0.8 EOSINOPHIL # (test code=EO#) 0.16 K/mm3 0.0-0.5 BASOPHIL # (test code=BA#) 0.04 K/mm3 0.0-0.2 NUCLEATED RBC # (test code=NRBC#) 0.00 K/mm3 0.0-0.1 MANUAL DIFF REQUIRED (test code=MDIFF) YES STAIN ACCEPTABILITY (test code=STN ACCEPTABLE) TOTAL CELLS COUNTED (test code=TCC) #CELLS SEGMENTED NEUTROPHILS (test code=SEG) % 39-69 LYMPHOCYTE (test code=LYMPH) % 25-55 MONOCYTE (test code=MON) % 0-10 EOSINOPHIL (test code=EOS) % 0.0-5.0 CABOT RINGS (test code=CAB) MORPHOLOGY COMMENT (test code=MOC) PLATELET ESTIMATE (test code=PLTEST) PLATELET MORPHOLOGY (test code=PLTMORPH) BASIC METABOLIC [id number] 23:25:00* Test Item Value Reference Range Comments SODIUM (test code=NA) 137 mmol/L 136-145 POTASSIUM (test code=K) 4.1 mmol/L 3.5-5.1 CHLORIDE (test code=CL) 102.0 mmol/L 98-107 CARBON DIOXIDE (test code=CO2) 28.0 mmol/L 21-32 ANION GAP (test code=GAP) 11.1 10-20 GLUCOSE (test code=GLU) 132 mg/dL 74-106 BLOOD UREA NITROGEN (test code=BUN) 23 mg/dL 7-18 RESULT VERIFIED BY REPEAT ANALYSIS GLOMERULAR FILTRATION RATE (test code=GFR) > 60 mL/min >=60 Estimated GFR by using Modified MDRD formula.Chronic kidney disease is defined as either kidney damageor GFR <60 mL/min/1.73 m2 for >3 months. CREATININE (test code=CREAT) 1.40 mg/dL 0.7-1.3 BUN/CREATININE RATIO (test code=BUN/CREA) 16.4 10-20 CALCIUM (test code=CA) 9.1 mg/dL 8.5-10.1 COMPREHENSIVE METABOLIC [id number] 23:25:00* Test Item Value Reference Range Comments TOTAL PROTEIN (test code=PROT) 7.7 gram/dL 6.4-8.2 ALBUMIN (test code=ALB) 3.7 g/dL 3.4-5.0 GLOBULIN (test code=GLOB) 4.0 gram/dL 2.7-4.2 ALBUMIN/GLOBULIN RATIO (test code=A/G) 0.9 0.75-1.50 BILIRUBIN TOTAL (test code=BILT) 0.20 mg/dL 0.0-1.0 SGOT/AST (test code=AST) 20 IUnit/L 15-37 SGPT/ALT (test code=ALT) 54 IUnit/L 12-78 ALKALINE PHOSPHATASE TOTAL (test code=ALKP) 93 IUnit/L 45-117 Note change in reference range due to change in reagent. [id number] 12:17:00* Test Item Value Reference Range Comments GLUBED (test code=GLUBED) 80 mg/dL 74-106 Performed by certified mingler operator at [facility] CBC W/MANUAL [id number] 08:41:00* Test Item Value Reference Range Comments WHITE BLOOD CELL (test code=WBC) 6.6 K/mm3 4.5-12.5 RED BLOOD CELL (test code=RBC) 4.74 mill/mm3 4.0-5.8 HEMOGLOBIN (test code=HGB) 11.2 gram/dL 13.0-17.5 HEMATOCRIT (test code=HCT) 39.3 % 42.0-52.0 MEAN CELL VOLUME (test code=MCV) 82.9 fL 80-98 MEAN CELL HGB (test code=MCH) 23.6 picogram 27.0-33.0 MEAN CELL HGB CONCETRATION (test code=MCHC) 28.5 gram/dL 33.0-36.0 RED CELL DISTRIBUTION WIDTH (test code=RDW) 15.3 % 11.6-16.2 RED CELL DISTRIBUTION WIDTH SD (test code=RDW-SD) 46.3 fL 37.0-51.0 PLATELET COUNT (test code=PLT) 199 K/mm3 150-450 MEAN PLATELET VOLUME (test code=MPV) 10.8 fL 6.7-11.0 IMMATURE GRANULOCYTE % (test code=IG%) 0.3 % 0.0-5.0 NUCLEATED RBC % (test code=NRBC%) 0.0 % 0-0 NEUTROPHIL # (test code=NT#) 3.84 K/mm3 1.8-7.7 IMMATURE GRANULOCYTE # (test code=IG#) 0.02 x10 3/uL 0-0.03 LYMPHOCYTE # (test code=LY#) 2.27 K/mm3 1.0-5.0 MONOCYTE # (test code=MO#) 0.27 K/mm3 0-0.8 EOSINOPHIL # (test code=EO#) 0.19 K/mm3 0.0-0.5 BASOPHIL # (test code=BA#) 0.03 K/mm3 0.0-0.2 NUCLEATED RBC # (test code=NRBC#) 0.00 K/mm3 0.0-0.1 MANUAL DIFF REQUIRED (test code=MDIFF) YES STAIN ACCEPTABILITY (test code=STN ACCEPTABLE) STAIN ACCEPTABLE TOTAL CELLS COUNTED (test code=TCC) 115 #CELLS SEGMENTED NEUTROPHILS (test code=SEG) 58.3 % 39-69 BAND NEUTROPHIL (test code=BAND) 0 % 0-10 LYMPHOCYTE (test code=LYMPH) 34.8 % 25-55 REACTIVE LYMPH (test code=RELYMPH) 1.7 % MONOCYTE (test code=MON) 0.9 % 0-10 EOSINOPHIL (test code=EOS) 4.3 % 0.0-5.0 BASOPHIL (test code=BASO) 0 % 0-1.0 METAMYELOCYTE (test code=META) 0 % 0-0 MYELOCYTE (test code=MYELO) 0 % 0.0-0.0 PROMYELOCYTE (test code=PROM) 0 % 0-0 HYPOCHROMIA (test code=HYPO) 1+ ANISOCYTOSIS (test code=ANISO) 1+ TEAR DROP CELLS (test code=TEAR) 1+ SCHISTOCYTES (test code=DILLAN) 1+ PLATELET ESTIMATE (test code=PLTEST) ADEQUATE PLATELET MORPHOLOGY (test code=PLTMORPH) NORMAL IMMATURE FORMS (test code=IMMAT) 0 % 0-0 COMPREHENSIVE METABOLIC [id number] 08:25:00* Test Item Value Reference Range Comments SODIUM (test code=NA) 138 mmol/L 136-145 POTASSIUM (test code=K) 4.7 mmol/L 3.5-5.1 CHLORIDE (test code=CL) 103.0 mmol/L 98-107 CARBON DIOXIDE (test code=CO2) 29.0 mmol/L 21-32 ANION GAP (test code=GAP) 10.7 10-20 GLUCOSE (test code=GLU) 86 mg/dL 74-106 BLOOD UREA NITROGEN (test code=BUN) 19 mg/dL 7-18 GLOMERULAR FILTRATION RATE (test code=GFR) > 60 mL/min >=60 Estimated GFR by using Modified MDRD formula.Chronic kidney disease is defined as either kidney damageor GFR <60 mL/min/1.73 m2 for >3 months. CREATININE (test code=CREAT) 1.30 mg/dL 0.7-1.3 BUN/CREATININE RATIO (test code=BUN/CREA) 14.6 10-20 TOTAL PROTEIN (test code=PROT) 7.5 gram/dL 6.4-8.2 ALBUMIN (test code=ALB) 3.6 g/dL 3.4-5.0 GLOBULIN (test code=GLOB) 3.9 gram/dL 2.7-4.2 ALBUMIN/GLOBULIN RATIO (test code=A/G) 0.9 0.75-1.50 CALCIUM (test code=CA) 9.2 mg/dL 8.5-10.1 BILIRUBIN TOTAL (test code=BILT) 0.40 mg/dL 0.0-1.0 SGOT/AST (test code=AST) 22 IUnit/L 15-37 SGPT/ALT (test code=ALT) 53 IUnit/L 12-78 ALKALINE PHOSPHATASE TOTAL (test code=ALKP) 81 IUnit/L 45-117 Note change in reference range due to change in reagent. COMPREHENSIVE METABOLIC [id number] 08:14:00* Test Item Value Reference Range Comments SODIUM (test code=NA) 138 mmol/L 136-145 POTASSIUM (test code=K) 4.7 mmol/L 3.5-5.1 CHLORIDE (test code=CL) 103.0 mmol/L 98-107 CARBON DIOXIDE (test code=CO2) mmol/L 21-32 ANION GAP (test code=GAP) 10-20 GLUCOSE (test code=GLU) mg/dL 74-106 BLOOD UREA NITROGEN (test code=BUN) mg/dL 7-18 GLOMERULAR FILTRATION RATE (test code=GFR) mL/min >=60 CREATININE (test code=CREAT) mg/dL 0.7-1.3 BUN/CREATININE RATIO (test code=BUN/CREA) 10-20 TOTAL PROTEIN (test code=PROT) gram/dL 6.4-8.2 ALBUMIN (test code=ALB) g/dL 3.4-5.0 GLOBULIN (test code=GLOB) gram/dL 2.7-4.2 ALBUMIN/GLOBULIN RATIO (test code=A/G) 0.75-1.50 CALCIUM (test code=CA) mg/dL 8.5-10.1 BILIRUBIN TOTAL (test code=BILT) mg/dL 0.0-1.0 SGOT/AST (test code=AST) IUnit/L 15-37 SGPT/ALT (test code=ALT) IUnit/L 12-78 ALKALINE PHOSPHATASE TOTAL (test code=ALKP) IUnit/L 45-117 CBC W/MANUAL [id number] 07:26:00* Test Item Value Reference Range Comments WHITE BLOOD CELL (test code=WBC) 6.6 K/mm3 4.5-12.5 RED BLOOD CELL (test code=RBC) 4.74 mill/mm3 4.0-5.8 HEMOGLOBIN (test code=HGB) 11.2 gram/dL 13.0-17.5 HEMATOCRIT (test code=HCT) 39.3 % 42.0-52.0 MEAN CELL VOLUME (test code=MCV) 82.9 fL 80-98 MEAN CELL HGB (test code=MCH) 23.6 picogram 27.0-33.0 MEAN CELL HGB CONCETRATION (test code=MCHC) 28.5 gram/dL 33.0-36.0 RED CELL DISTRIBUTION WIDTH (test code=RDW) 15.3 % 11.6-16.2 RED CELL DISTRIBUTION WIDTH SD (test code=RDW-SD) 46.3 fL 37.0-51.0 PLATELET COUNT (test code=PLT) 199 K/mm3 150-450 MEAN PLATELET VOLUME (test code=MPV) 10.8 fL 6.7-11.0 IMMATURE GRANULOCYTE % (test code=IG%) 0.3 % 0.0-5.0 NUCLEATED RBC % (test code=NRBC%) 0.0 % 0-0 NEUTROPHIL # (test code=NT#) 3.84 K/mm3 1.8-7.7 IMMATURE GRANULOCYTE # (test code=IG#) 0.02 x10 3/uL 0-0.03 LYMPHOCYTE # (test code=LY#) 2.27 K/mm3 1.0-5.0 MONOCYTE # (test code=MO#) 0.27 K/mm3 0-0.8 EOSINOPHIL # (test code=EO#) 0.19 K/mm3 0.0-0.5 BASOPHIL # (test code=BA#) 0.03 K/mm3 0.0-0.2 NUCLEATED RBC # (test code=NRBC#) 0.00 K/mm3 0.0-0.1 MANUAL DIFF REQUIRED (test code=MDIFF) YES STAIN ACCEPTABILITY (test code=STN ACCEPTABLE) TOTAL CELLS COUNTED (test code=TCC) #CELLS SEGMENTED NEUTROPHILS (test code=SEG) % 39-69 LYMPHOCYTE (test code=LYMPH) % 25-55 MONOCYTE (test code=MON) % 0-10 EOSINOPHIL (test code=EOS) % 0.0-5.0 CABOT RINGS (test code=CAB) MORPHOLOGY COMMENT (test code=MOC) PLATELET ESTIMATE (test code=PLTEST) PLATELET MORPHOLOGY (test code=PLTMORPH) CBC W/MANUAL [id number] 07:26:00* Test Item Value Reference Range Comments WHITE BLOOD CELL (test code=WBC) 6.6 K/mm3 4.5-12.5 RED BLOOD CELL (test code=RBC) 4.74 mill/mm3 4.0-5.8 HEMOGLOBIN (test code=HGB) 11.2 gram/dL 13.0-17.5 HEMATOCRIT (test code=HCT) 39.3 % 42.0-52.0 MEAN CELL VOLUME (test code=MCV) 82.9 fL 80-98 MEAN CELL HGB (test code=MCH) 23.6 picogram 27.0-33.0 MEAN CELL HGB CONCETRATION (test code=MCHC) 28.5 gram/dL 33.0-36.0 RED CELL DISTRIBUTION WIDTH (test code=RDW) 15.3 % 11.6-16.2 RED CELL DISTRIBUTION WIDTH SD (test code=RDW-SD) 46.3 fL 37.0-51.0 PLATELET COUNT (test code=PLT) 199 K/mm3 150-450 MEAN PLATELET VOLUME (test code=MPV) 10.8 fL 6.7-11.0 IMMATURE GRANULOCYTE % (test code=IG%) 0.3 % 0.0-5.0 NUCLEATED RBC % (test code=NRBC%) 0.0 % 0-0 NEUTROPHIL # (test code=NT#) 3.84 K/mm3 1.8-7.7 IMMATURE GRANULOCYTE # (test code=IG#) 0.02 x10 3/uL 0-0.03 LYMPHOCYTE # (test code=LY#) 2.27 K/mm3 1.0-5.0 MONOCYTE # (test code=MO#) 0.27 K/mm3 0-0.8 EOSINOPHIL # (test code=EO#) 0.19 K/mm3 0.0-0.5 BASOPHIL # (test code=BA#) 0.03 K/mm3 0.0-0.2 NUCLEATED RBC # (test code=NRBC#) 0.00 K/mm3 0.0-0.1 MANUAL DIFF REQUIRED (test code=MDIFF) YES STAIN ACCEPTABILITY (test code=STN ACCEPTABLE) TOTAL CELLS COUNTED (test code=TCC) #CELLS SEGMENTED NEUTROPHILS (test code=SEG) % 39-69 LYMPHOCYTE (test code=LYMPH) % 25-55 MONOCYTE (test code=MON) % 0-10 EOSINOPHIL (test code=EOS) % 0.0-5.0 CABOT RINGS (test code=CAB) MORPHOLOGY COMMENT (test code=MOC) PLATELET ESTIMATE (test code=PLTEST) PLATELET MORPHOLOGY (test code=PLTMORPH) CBC W/MANUAL [id number] 07:26:00* Test Item Value Reference Range Comments WHITE BLOOD CELL (test code=WBC) 6.6 K/mm3 4.5-12.5 RED BLOOD CELL (test code=RBC) 4.74 mill/mm3 4.0-5.8 HEMOGLOBIN (test code=HGB) 11.2 gram/dL 13.0-17.5 HEMATOCRIT (test code=HCT) 39.3 % 42.0-52.0 MEAN CELL VOLUME (test code=MCV) 82.9 fL 80-98 MEAN CELL HGB (test code=MCH) 23.6 picogram 27.0-33.0 MEAN CELL HGB CONCETRATION (test code=MCHC) 28.5 gram/dL 33.0-36.0 RED CELL DISTRIBUTION WIDTH (test code=RDW) 15.3 % 11.6-16.2 RED CELL DISTRIBUTION WIDTH SD (test code=RDW-SD) 46.3 fL 37.0-51.0 PLATELET COUNT (test code=PLT) 199 K/mm3 150-450 MEAN PLATELET VOLUME (test code=MPV) 10.8 fL 6.7-11.0 IMMATURE GRANULOCYTE % (test code=IG%) 0.3 % 0.0-5.0 NUCLEATED RBC % (test code=NRBC%) 0.0 % 0-0 NEUTROPHIL # (test code=NT#) 3.84 K/mm3 1.8-7.7 IMMATURE GRANULOCYTE # (test code=IG#) 0.02 x10 3/uL 0-0.03 LYMPHOCYTE # (test code=LY#) 2.27 K/mm3 1.0-5.0 MONOCYTE # (test code=MO#) 0.27 K/mm3 0-0.8 EOSINOPHIL # (test code=EO#) 0.19 K/mm3 0.0-0.5 BASOPHIL # (test code=BA#) 0.03 K/mm3 0.0-0.2 NUCLEATED RBC # (test code=NRBC#) 0.00 K/mm3 0.0-0.1 MANUAL DIFF REQUIRED (test code=MDIFF) YES STAIN ACCEPTABILITY (test code=STN ACCEPTABLE) TOTAL CELLS COUNTED (test code=TCC) #CELLS SEGMENTED NEUTROPHILS (test code=SEG) % 39-69 LYMPHOCYTE (test code=LYMPH) % 25-55 MONOCYTE (test code=MON) % 0-10 EOSINOPHIL (test code=EOS) % 0.0-5.0 MORPHOLOGY COMMENT (test code=MOC) PLATELET ESTIMATE (test code=PLTEST) PLATELET MORPHOLOGY (test code=PLTMORPH) CBC W/MANUAL [id number] 07:26:00* Test Item Value Reference Range Comments WHITE BLOOD CELL (test code=WBC) 6.6 K/mm3 4.5-12.5 RED BLOOD CELL (test code=RBC) 4.74 mill/mm3 4.0-5.8 HEMOGLOBIN (test code=HGB) 11.2 gram/dL 13.0-17.5 HEMATOCRIT (test code=HCT) 39.3 % 42.0-52.0 MEAN CELL VOLUME (test code=MCV) 82.9 fL 80-98 MEAN CELL HGB (test code=MCH) 23.6 picogram 27.0-33.0 MEAN CELL HGB CONCETRATION (test code=MCHC) 28.5 gram/dL 33.0-36.0 RED CELL DISTRIBUTION WIDTH (test code=RDW) 15.3 % 11.6-16.2 RED CELL DISTRIBUTION WIDTH SD (test code=RDW-SD) 46.3 fL 37.0-51.0 PLATELET COUNT (test code=PLT) 199 K/mm3 150-450 MEAN PLATELET VOLUME (test code=MPV) 10.8 fL 6.7-11.0 IMMATURE GRANULOCYTE % (test code=IG%) 0.3 % 0.0-5.0 NUCLEATED RBC % (test code=NRBC%) 0.0 % 0-0 NEUTROPHIL # (test code=NT#) 3.84 K/mm3 1.8-7.7 IMMATURE GRANULOCYTE # (test code=IG#) 0.02 x10 3/uL 0-0.03 LYMPHOCYTE # (test code=LY#) 2.27 K/mm3 1.0-5.0 MONOCYTE # (test code=MO#) 0.27 K/mm3 0-0.8 EOSINOPHIL # (test code=EO#) 0.19 K/mm3 0.0-0.5 BASOPHIL # (test code=BA#) 0.03 K/mm3 0.0-0.2 NUCLEATED RBC # (test code=NRBC#) 0.00 K/mm3 0.0-0.1 MANUAL DIFF REQUIRED (test code=MDIFF) YES STAIN ACCEPTABILITY (test code=STN ACCEPTABLE) TOTAL CELLS COUNTED (test code=TCC) #CELLS SEGMENTED NEUTROPHILS (test code=SEG) % 39-69 LYMPHOCYTE (test code=LYMPH) % 25-55 MONOCYTE (test code=MON) % 0-10 MORPHOLOGY COMMENT (test code=MOC) PLATELET ESTIMATE (test code=PLTEST) PLATELET MORPHOLOGY (test code=PLTMORPH) CBC W/MANUAL [id number] 07:26:00* Test Item Value Reference Range Comments WHITE BLOOD CELL (test code=WBC) 6.6 K/mm3 4.5-12.5 RED BLOOD CELL (test code=RBC) 4.74 mill/mm3 4.0-5.8 HEMOGLOBIN (test code=HGB) 11.2 gram/dL 13.0-17.5 HEMATOCRIT (test code=HCT) 39.3 % 42.0-52.0 MEAN CELL VOLUME (test code=MCV) 82.9 fL 80-98 MEAN CELL HGB (test code=MCH) 23.6 picogram 27.0-33.0 MEAN CELL HGB CONCETRATION (test code=MCHC) 28.5 gram/dL 33.0-36.0 RED CELL DISTRIBUTION WIDTH (test code=RDW) 15.3 % 11.6-16.2 RED CELL DISTRIBUTION WIDTH SD (test code=RDW-SD) 46.3 fL 37.0-51.0 PLATELET COUNT (test code=PLT) 199 K/mm3 150-450 MEAN PLATELET VOLUME (test code=MPV) 10.8 fL 6.7-11.0 IMMATURE GRANULOCYTE % (test code=IG%) 0.3 % 0.0-5.0 NUCLEATED RBC % (test code=NRBC%) 0.0 % 0-0 NEUTROPHIL # (test code=NT#) 3.84 K/mm3 1.8-7.7 IMMATURE GRANULOCYTE # (test code=IG#) 0.02 x10 3/uL 0-0.03 LYMPHOCYTE # (test code=LY#) 2.27 K/mm3 1.0-5.0 MONOCYTE # (test code=MO#) 0.27 K/mm3 0-0.8 EOSINOPHIL # (test code=EO#) 0.19 K/mm3 0.0-0.5 BASOPHIL # (test code=BA#) 0.03 K/mm3 0.0-0.2 NUCLEATED RBC # (test code=NRBC#) 0.00 K/mm3 0.0-0.1 MANUAL DIFF REQUIRED (test code=MDIFF) YES STAIN ACCEPTABILITY (test code=STN ACCEPTABLE) TOTAL CELLS COUNTED (test code=TCC) #CELLS SEGMENTED NEUTROPHILS (test code=SEG) % 39-69 LYMPHOCYTE (test code=LYMPH) % 25-55 MONOCYTE (test code=MON) % 0-10 EOSINOPHIL (test code=EOS) % 0.0-5.0 CABOT RINGS (test code=CAB) MORPHOLOGY COMMENT (test code=MOC) PLATELET ESTIMATE (test code=PLTEST) PLATELET MORPHOLOGY (test code=PLTMORPH) URINALYSIS [id number] 16:01:00* Test Item Value Reference Range Comments UA COLOR (test code=COLU) Light-Yellow YELLOW UA APPEARANCE (test code=APPU) CLEAR CLEAR UA GLUCOSE DIPSTICK (test code=DGLUU) NEGATIVE mg/dL NEGATIVE UA BILIRUBIN DIPSTICK (test code=BILU) NEGATIVE mg/dL NEGATIVE UA KETONE DIPSTICK (test code=KETU) NEGATIVE mg/dL NEGATIVE UA SPECIFIC GRAVITY (test code=SGU) 1.023 1.001-1.035 UA BLOOD DIPSTICK (test code=NIRMAL) Negative mg/dL NEGATIVE UA PH DIPSTICK (test code=KRUNAL) 6.5 5.0-8.0 UA PROTEIN DIPSTICK (test code=PROU) NEGATIVE mg/dL NEGATIVE UA UROBILINIOGEN DIPSTICK (test code=URO) Normal mg/dL NEGATIVE UA NITRITE DIPSTICK (test code=ARAMIS) NEGATIVE NEGATIVE UA LEUKOCYTE ESTERASE W REFLEX (test code=LEUUR) NEGATIVE Yoni/uL NEGATIVE UA WBC (test code=WBCU) 0-5 per HPF 0-5 UA RBC (test code=RBCU) 0-3 #/HPF 0-5 UA EPITHELIAL CELLS (test code=EPIU) FEW per HPF FEW UA BACTERIA (test code=BACU) NONE SEEN #/HPF NONE Urine Source? Clean CatchURINALYSIS [id number] 15:58:00* Test Item Value Reference Range Comments UA COLOR (test code=COLU) Light-Yellow YELLOW UA APPEARANCE (test code=APPU) CLEAR CLEAR UA GLUCOSE DIPSTICK (test code=DGLUU) NEGATIVE mg/dL NEGATIVE UA BILIRUBIN DIPSTICK (test code=BILU) NEGATIVE mg/dL NEGATIVE UA KETONE DIPSTICK (test code=KETU) NEGATIVE mg/dL NEGATIVE UA SPECIFIC GRAVITY (test code=SGU) 1.023 1.001-1.035 UA BLOOD DIPSTICK (test code=NIRMAL) Negative mg/dL NEGATIVE UA PH DIPSTICK (test code=KRUNAL) 6.5 5.0-8.0 UA PROTEIN DIPSTICK (test code=PROU) NEGATIVE mg/dL NEGATIVE UA UROBILINIOGEN DIPSTICK (test code=URO) Normal mg/dL NEGATIVE UA NITRITE DIPSTICK (test code=ARAMIS) NEGATIVE NEGATIVE UA LEUKOCYTE ESTERASE W REFLEX (test code=LEUUR) NEGATIVE Yoni/uL NEGATIVE UA WBC (test code=WBCU) per HPF 0-5 UA RBC (test code=RBCU) per HPF 0-5 UA EPITHELIAL CELLS (test code=EPIU) per HPF Few UA BACTERIA (test code=BACU) per HPF NONE Urine Source? Clean CatchCBC W/O [id number] 14:41:00* Test Item Value Reference Range Comments WHITE BLOOD CELL (test code=WBC) 7.0 K/mm3 4.5-12.5 RED BLOOD CELL (test code=RBC) 5.08 mill/mm3 4.0-5.8 HEMOGLOBIN (test code=HGB) 12.2 gram/dL 13.0-17.5 HEMATOCRIT (test code=HCT) 40.4 % 42.0-52.0 MEAN CELL VOLUME (test code=MCV) 79.5 fL 80-98 MEAN CELL HGB (test code=MCH) 24.0 picogram 27.0-33.0 MEAN CELL HGB CONCETRATION (test code=MCHC) 30.2 gram/dL 33.0-36.0 RED CELL DISTRIBUTION WIDTH (test code=RDW) 15.3 % 11.6-16.2 PLATELET COUNT (test code=PLT) 220 K/mm3 150-450 MEAN PLATELET VOLUME (test code=MPV) 11.6 fL 6.7-11.0 - XR CHEST 1 [id number] 14:34:00 FAX: Surinder Landa MD [phone] [place]: St: REG FAX: Martha Crawley DO Name: GLENN BAUM [facility] : 1980 Age/S: 38/M [address] [facility] Unit #: [id number] Loc: [place] [address] Phys: Martha Crawley DO Acct: [id number] Dis Date: Status: REG ER PHONE #: [phone] Exam Date: 01/04/2019 1415 FAX #: [phone] Reason: WEAKNESS EXAMS: CPT CODE: [id number] XR CHEST 1 V 05211 TECHNIQUE - XR CHEST 1 V . COMPARISON: Chest x-ray 11/14/2018 HISTORY: 38 years Male WEAKNESS FINDINGS: Lungs: No nodules. No air space or interstitial lung disease. Lungs are normal in volume. Mediastinum and ham: No enlargement or other mass. Cardiovascular structures: No cardiomegaly. No abnormalities in vascular structures. Pleura/CP angles: Clear. No pneumothorax. Bones: No osseous abnormalities. Soft tissues: No abnormalities. Tubes and lines: Left-sided port in place. Other: None. IMPRESSION: No acute cardiopulmonary abnormalities. at 1434 Reported and signed by: Joseluis Villarreal M.D. CC: Surinder Trevino MD; Martha Dorantes DO Technologist: RT WILLIAM(Bernarda) Trnscrd Date/Time/By: 01/04/2019 (9251) : By: Kellee Orig Print D/T: S: 01/04/2019 (4922) PAGE 1 Signed Report BASIC METABOLIC [id number] 14:26:00* Test Item Value Reference Range Comments SODIUM (test code=NA) 138 mmol/L 136-145 POTASSIUM (test code=K) 4.5 mmol/L 3.5-5.1 CHLORIDE (test code=CL) 104.0 mmol/L 98-107 CARBON DIOXIDE (test code=CO2) 29.0 mmol/L 21-32 ANION GAP (test code=GAP) 9.5 10-20 GLUCOSE (test code=GLU) 93 mg/dL 74-106 BLOOD UREA NITROGEN (test code=BUN) 19 mg/dL 7-18 GLOMERULAR FILTRATION RATE (test code=GFR) > 60 mL/min >=60 Estimated GFR by using Modified MDRD formula.Chronic kidney disease is defined as either kidney damageor GFR <60 mL/min/1.73 m2 for >3 months. CREATININE (test code=CREAT) 1.30 mg/dL 0.7-1.3 BUN/CREATININE RATIO (test code=BUN/CREA) 14.6 10-20 CALCIUM (test code=CA) 9.5 mg/dL 8.5-10.1 [id number] 14:26:00* Test Item Value Reference Range Comments TROPONIN-I (test code=TROPI) <0.015 ng/mL 0-0.045 BASIC METABOLIC [id number] 14:18:00* Test Item Value Reference Range Comments SODIUM (test code=NA) 138 mmol/L 136-145 POTASSIUM (test code=K) 4.5 mmol/L 3.5-5.1 CHLORIDE (test code=CL) 104.0 mmol/L 98-107 CARBON DIOXIDE (test code=CO2) mmol/L 21-32 ANION GAP (test code=GAP) 10-20 GLUCOSE (test code=GLU) mg/dL 74-106 BLOOD UREA NITROGEN (test code=BUN) mg/dL 7-18 GLOMERULAR FILTRATION RATE (test code=GFR) mL/min >=60 CREATININE (test code=CREAT) mg/dL 0.7-1.3 BUN/CREATININE RATIO (test code=BUN/CREA) 10-20 CALCIUM (test code=CA) mg/dL 8.5-10.1 [id number] 14:18:00* Test Item Value Reference Range Comments TROPONIN-I (test code=TROPI) ng/mL 0-0.045 - XR CHEST 1 [id number] 12:16:00 FAX: Surinder Landa MD [phone] [place]: O St: REG FAX: Johann Ramirez MD [phone] Name: GLENN BAUM [facility] : 1980 Age/S: 37/M [address] [facility] Unit #: [id number] Loc: [place] [address] Phys: Johann Malin MD Acct: [id number] Dis Date: Status: REG CLI PHONE #: [phone] Exam Date: 11/14/2018 1129 FAX #: [phone] Reason: SOB EXAMS: CPT CODE: [id number] XR CHEST 1 V 36901 HISTORY: Shortness of breath. COMPARISON: November 10, 2018. Left Port-A-Cath with the tip projected over the SVC. No pneumothorax. The lungs are clear. No infiltrates, effusion or congestion. Cardiomegaly. IMPRESSION: No acute infiltrates, effusion or congestion. No pneumothorax. at 1216 Reported and signed by: Nadeem Milton M.D. CC: Surinder Trevino MD; Johann Malin MD Technologist: RT Yesi(R) [facility] Date/Time/By: 11/14/2018 (7830) : By: [email or web address] Orig Print D/T: S: 11/14/2018 (0707) PAGE 1 Signed Report [id number] 15:51:00 * Test Item Value Reference Range Comments GLUBED (test code=GLUBED) 86 mg/dL 74-106 Performed by certified mingler operator at [facility] - XR CHEST 1 [id number] 13:28:00 FAX: Surinder Landa MD [phone] [place]: St: REG FAX: Johann Ramirez MD [phone] Name: GLENN BAUM [facility] : 1980 Age/S: 37/M [address] [facility] Unit #: [id number] Loc: [place] [address] Phys: Johann Malin MD Acct: [id number] Dis Date: Status: REG [facility] PHONE #: [phone] Exam Date: 11/10/2018 1309 FAX #: [phone] Reason: S/P PORT A CATH PLACEMENT EXAMS: CPT CODE: [id number] XR CHEST 1 V 19281 HISTORY: Port-A-Cath placement. COMPARISON: May 21, 2014. Left jugular Port-A-Cath with the tip projected over the SVC without pneumothorax. The lungs are clear of infiltrates, effusion or congestion. Dependent changes. Cardiomegaly. IMPRESSION: Left Port-A-Cath with the tip projected over the SVC without pneumothorax. at [id number] Reported and signed by: Nadeem Milton M.D. CC: Surinder Trevino MD; Johann Malin MD Technologist: RT WILLIAM(R) Trnscrd Date/Time/By: 11/10/2018 (7168) : By: [email or web address] Orig Print D /T: S: 11/10/2018 (1033) PAGE 1 S igned Report COMPREHENSIVE METABOLIC PANEL 2018-11-07 12:46:00* Test Item Value Reference Range Comments SODIUM (test code=NA) 138 mmol/L 136-145 POTASSIUM (test code=K) 4.0 mmol/L 3.5-5.1 CHLORIDE (test code=CL) 104.0 mmol/L 98-107 CARBON DIOXIDE (test code=CO2) 27.0 mmol/L 21-32 ANION GAP (test code=GAP) 11.0 10-20 GLUCOSE (test code=GLU) 116 mg/dL 74-106 BLOOD UREA NITROGEN (test code=BUN) 12 mg/dL 7-18 GLOMERULAR FILTRATION RATE (test code=GFR) > 60 mL/min >=60 Estimated GFR by using Modified MDRD formula.Chronic kidney disease is defined as either kidney damageor GFR <60 mL/min/1.73 m2 for >3 months. CREATININE (test code=CREAT) 1.30 mg/dL 0.7-1.3 BUN/CREATININE RATIO (test code=BUN/CREA) 9.2 10-20 TOTAL PROTEIN (test code=PROT) 7.6 gram/dL 6.4-8.2 ALBUMIN (test code=ALB) 3.8 g/dL 3.4-5.0 GLOBULIN (test code=GLOB) 3.8 gram/dL 2.7-4.2 ALBUMIN/GLOBULIN RATIO (test code=A/G) 1.0 0.75-1.50 CALCIUM (test code=CA) 9.2 mg/dL 8.5-10.1 BILIRUBIN TOTAL (test code=BILT) 0.60 mg/dL 0.0-1.0 SGOT/AST (test code=AST) 19 IUnit/L 15-37 SGPT/ALT (test code=ALT) 31 IUnit/L 12-78 ALKALINE PHOSPHATASE TOTAL (test code=ALKP) 99 IUnit/L 45-117 Note change in reference range due to change in reagent. CBC W/AUTO [id number] 12:37:00* Test Item Value Reference Range Comments WHITE BLOOD CELL (test code=WBC) 5.9 K/mm3 4.5-12.5 RED BLOOD CELL (test code=RBC) 5.53 mill/mm3 4.0-5.8 HEMOGLOBIN (test code=HGB) 12.4 gram/dL 13.0-17.5 HEMATOCRIT (test code=HCT) 44.8 % 42.0-52.0 MEAN CELL VOLUME (test code=MCV) 81.0 fL 80-98 MEAN CELL HGB (test code=MCH) 22.4 picogram 27.0-33.0 MEAN CELL HGB CONCETRATION (test code=MCHC) 27.7 gram/dL 33.0-36.0 RED CELL DISTRIBUTION WIDTH (test code=RDW) 13.4 % 11.6-16.2 RED CELL DISTRIBUTION WIDTH SD (test code=RDW-SD) 39.3 fL 37.0-51.0 PLATELET COUNT (test code=PLT) 227 K/mm3 150-450 MEAN PLATELET VOLUME (test code=MPV) 10.7 fL 6.7-11.0 NEUTROPHIL % (test code=NT%) 49.0 % 39.0-69.0 IMMATURE GRANULOCYTE % (test code=IG%) 0.2 % 0.0-5.0 LYMPHOCYTE % (test code=LY%) 38.8 % 25.0-55.0 MONOCYTE % (test code=MO%) 9.7 % 0.0-10.0 EOSINOPHIL % (test code=EO%) 2.0 % 0.0-5.0 BASOPHIL % (test code=BA%) 0.3 % 0.0-1.0 NUCLEATED RBC % (test code=NRBC%) 0.0 % 0-0 NEUTROPHIL # (test code=NT#) 2.88 K/mm3 1.8-7.7 IMMATURE GRANULOCYTE # (test code=IG#) 0.01 x10 3/uL 0-0.03 LYMPHOCYTE # (test code=LY#) 2.28 K/mm3 1.0-5.0 MONOCYTE # (test code=MO#) 0.57 K/mm3 0-0.8 EOSINOPHIL # (test code=EO#) 0.12 K/mm3 0.0-0.5 BASOPHIL # (test code=BA#) 0.02 K/mm3 0.0-0.2 NUCLEATED RBC # (test code=NRBC#) 0.00 K/mm3 0.0-0.1 MANUAL DIFF REQUIRED (test code=MDIFF) NO, ONLY SCAN NEEDED DIFFERENTIAL [id number] 12:37:00* Test Item Value Reference Range Comments STAIN ACCEPTABILITY (test code=STN ACCEPTABLE) STAIN ACCEPTABLE MORPHOLOGY COMMENT (test code=MOC) NORMAL PLATELET ESTIMATE (test code=PLTEST) ADEQUATE PLATELET MORPHOLOGY (test code=PLTMORPH) CLUMPING PRESENT COMPREHENSIVE METABOLIC [id number] 12:36:00* Test Item Value Reference Range Comments SODIUM (test code=NA) 138 mmol/L 136-145 POTASSIUM (test code=K) 4.0 mmol/L 3.5-5.1 CHLORIDE (test code=CL) 104.0 mmol/L 98-107 CARBON DIOXIDE (test code=CO2) mmol/L 21-32 ANION GAP (test code=GAP) 10-20 GLUCOSE (test code=GLU) mg/dL 74-106 BLOOD UREA NITROGEN (test code=BUN) mg/dL 7-18 GLOMERULAR FILTRATION RATE (test code=GFR) mL/min >=60 CREATININE (test code=CREAT) mg/dL 0.7-1.3 BUN/CREATININE RATIO (test code=BUN/CREA) 10-20 TOTAL PROTEIN (test code=PROT) gram/dL 6.4-8.2 ALBUMIN (test code=ALB) g/dL 3.4-5.0 GLOBULIN (test code=GLOB) gram/dL 2.7-4.2 ALBUMIN/GLOBULIN RATIO (test code=A/G) 0.75-1.50 CALCIUM (test code=CA) mg/dL 8.5-10.1 BILIRUBIN TOTAL (test code=BILT) mg/dL 0.0-1.0 SGOT/AST (test code=AST) IUnit/L 15-37 SGPT/ALT (test code=ALT) IUnit/L 12-78 ALKALINE PHOSPHATASE TOTAL (test code=ALKP) IUnit/L 45-117 CBC W/AUTO [id number] 11:54:00* Test Item Value Reference Range Comments WHITE BLOOD CELL (test code=WBC) 5.9 K/mm3 4.5-12.5 RED BLOOD CELL (test code=RBC) 5.53 mill/mm3 4.0-5.8 HEMOGLOBIN (test code=HGB) 12.4 gram/dL 13.0-17.5 HEMATOCRIT (test code=HCT) 44.8 % 42.0-52.0 MEAN CELL VOLUME (test code=MCV) 81.0 fL 80-98 MEAN CELL HGB (test code=MCH) 22.4 picogram 27.0-33.0 MEAN CELL HGB CONCETRATION (test code=MCHC) 27.7 gram/dL 33.0-36.0 RED CELL DISTRIBUTION WIDTH (test code=RDW) 13.4 % 11.6-16.2 RED CELL DISTRIBUTION WIDTH SD (test code=RDW-SD) 39.3 fL 37.0-51.0 PLATELET COUNT (test code=PLT) 227 K/mm3 150-450 MEAN PLATELET VOLUME (test code=MPV) 10.7 fL 6.7-11.0 NEUTROPHIL % (test code=NT%) 49.0 % 39.0-69.0 IMMATURE GRANULOCYTE % (test code=IG%) 0.2 % 0.0-5.0 LYMPHOCYTE % (test code=LY%) 38.8 % 25.0-55.0 MONOCYTE % (test code=MO%) 9.7 % 0.0-10.0 EOSINOPHIL % (test code=EO%) 2.0 % 0.0-5.0 BASOPHIL % (test code=BA%) 0.3 % 0.0-1.0 NUCLEATED RBC % (test code=NRBC%) 0.0 % 0-0 NEUTROPHIL # (test code=NT#) 2.88 K/mm3 1.8-7.7 IMMATURE GRANULOCYTE # (test code=IG#) 0.01 x10 3/uL 0-0.03 LYMPHOCYTE # (test code=LY#) 2.28 K/mm3 1.0-5.0 MONOCYTE # (test code=MO#) 0.57 K/mm3 0-0.8 EOSINOPHIL # (test code=EO#) 0.12 K/mm3 0.0-0.5 BASOPHIL # (test code=BA#) 0.02 K/mm3 0.0-0.2 NUCLEATED RBC # (test code=NRBC#) 0.00 K/mm3 0.0-0.1 MANUAL DIFF REQUIRED (test code=MDIFF) NO, ONLY SCAN NEEDED DIFFERENTIAL [id number] 11:54:00* Test Item Value Reference Range Comments STAIN ACCEPTABILITY (test code=STN ACCEPTABLE) CABOT RINGS (test code=CAB) MORPHOLOGY COMMENT (test code=MOC) PLATELET ESTIMATE (test code=PLTEST) PLATELET MORPHOLOGY (test code=PLTMORPH) CBC W/AUTO [id number] 11:54:00* Test Item Value Reference Range Comments WHITE BLOOD CELL (test code=WBC) 5.9 K/mm3 4.5-12.5 RED BLOOD CELL (test code=RBC) 5.53 mill/mm3 4.0-5.8 HEMOGLOBIN (test code=HGB) 12.4 gram/dL 13.0-17.5 HEMATOCRIT (test code=HCT) 44.8 % 42.0-52.0 MEAN CELL VOLUME (test code=MCV) 81.0 fL 80-98 MEAN CELL HGB (test code=MCH) 22.4 picogram 27.0-33.0 MEAN CELL HGB CONCETRATION (test code=MCHC) 27.7 gram/dL 33.0-36.0 RED CELL DISTRIBUTION WIDTH (test code=RDW) 13.4 % 11.6-16.2 RED CELL DISTRIBUTION WIDTH SD (test code=RDW-SD) 39.3 fL 37.0-51.0 PLATELET COUNT (test code=PLT) 227 K/mm3 150-450 MEAN PLATELET VOLUME (test code=MPV) 10.7 fL 6.7-11.0 NEUTROPHIL % (test code=NT%) 49.0 % 39.0-69.0 IMMATURE GRANULOCYTE % (test code=IG%) 0.2 % 0.0-5.0 LYMPHOCYTE % (test code=LY%) 38.8 % 25.0-55.0 MONOCYTE % (test code=MO%) 9.7 % 0.0-10.0 EOSINOPHIL % (test code=EO%) 2.0 % 0.0-5.0 BASOPHIL % (test code=BA%) 0.3 % 0.0-1.0 NUCLEATED RBC % (test code=NRBC%) 0.0 % 0-0 NEUTROPHIL # (test code=NT#) 2.88 K/mm3 1.8-7.7 IMMATURE GRANULOCYTE # (test code=IG#) 0.01 x10 3/uL 0-0.03 LYMPHOCYTE # (test code=LY#) 2.28 K/mm3 1.0-5.0 MONOCYTE # (test code=MO#) 0.57 K/mm3 0-0.8 EOSINOPHIL # (test code=EO#) 0.12 K/mm3 0.0-0.5 BASOPHIL # (test code=BA#) 0.02 K/mm3 0.0-0.2 NUCLEATED RBC # (test code=NRBC#) 0.00 K/mm3 0.0-0.1 MANUAL DIFF REQUIRED (test code=MDIFF) NO, ONLY SCAN NEEDED DIFFERENTIAL [id number] 11:54:00* Test Item Value Reference Range Comments STAIN ACCEPTABILITY (test code=STN ACCEPTABLE) CABOT RINGS (test code=CAB) MORPHOLOGY COMMENT (test code=MOC) PLATELET ESTIMATE (test code=PLTEST) PLATELET MORPHOLOGY (test code=PLTMORPH) CBC W/AUTO [id number] 11:54:00* Test Item Value Reference Range Comments WHITE BLOOD CELL (test code=WBC) 5.9 K/mm3 4.5-12.5 RED BLOOD CELL (test code=RBC) 5.53 mill/mm3 4.0-5.8 HEMOGLOBIN (test code=HGB) 12.4 gram/dL 13.0-17.5 HEMATOCRIT (test code=HCT) 44.8 % 42.0-52.0 MEAN CELL VOLUME (test code=MCV) 81.0 fL 80-98 MEAN CELL HGB (test code=MCH) 22.4 picogram 27.0-33.0 MEAN CELL HGB CONCETRATION (test code=MCHC) 27.7 gram/dL 33.0-36.0 RED CELL DISTRIBUTION WIDTH (test code=RDW) 13.4 % 11.6-16.2 RED CELL DISTRIBUTION WIDTH SD (test code=RDW-SD) 39.3 fL 37.0-51.0 PLATELET COUNT (test code=PLT) 227 K/mm3 150-450 MEAN PLATELET VOLUME (test code=MPV) 10.7 fL 6.7-11.0 NEUTROPHIL % (test code=NT%) 49.0 % 39.0-69.0 IMMATURE GRANULOCYTE % (test code=IG%) 0.2 % 0.0-5.0 LYMPHOCYTE % (test code=LY%) 38.8 % 25.0-55.0 MONOCYTE % (test code=MO%) 9.7 % 0.0-10.0 EOSINOPHIL % (test code=EO%) 2.0 % 0.0-5.0 BASOPHIL % (test code=BA%) 0.3 % 0.0-1.0 NUCLEATED RBC % (test code=NRBC%) 0.0 % 0-0 NEUTROPHIL # (test code=NT#) 2.88 K/mm3 1.8-7.7 IMMATURE GRANULOCYTE # (test code=IG#) 0.01 x10 3/uL 0-0.03 LYMPHOCYTE # (test code=LY#) 2.28 K/mm3 1.0-5.0 MONOCYTE # (test code=MO#) 0.57 K/mm3 0-0.8 EOSINOPHIL # (test code=EO#) 0.12 K/mm3 0.0-0.5 BASOPHIL # (test code=BA#) 0.02 K/mm3 0.0-0.2 NUCLEATED RBC # (test code=NRBC#) 0.00 K/mm3 0.0-0.1 MANUAL DIFF REQUIRED (test code=MDIFF) NO, ONLY SCAN NEEDED DIFFERENTIAL [id number] 11:54:00* Test Item Value Reference Range Comments STAIN ACCEPTABILITY (test code=STN ACCEPTABLE) MORPHOLOGY COMMENT (test code=MOC) PLATELET ESTIMATE (test code=PLTEST) PLATELET MORPHOLOGY (test code=PLTMORPH) CBC W/AUTO [id number] 11:54:00* Test Item Value Reference Range Comments WHITE BLOOD CELL (test code=WBC) 5.9 K/mm3 4.5-12.5 RED BLOOD CELL (test code=RBC) 5.53 mill/mm3 4.0-5.8 HEMOGLOBIN (test code=HGB) 12.4 gram/dL 13.0-17.5 HEMATOCRIT (test code=HCT) 44.8 % 42.0-52.0 MEAN CELL VOLUME (test code=MCV) 81.0 fL 80-98 MEAN CELL HGB (test code=MCH) 22.4 picogram 27.0-33.0 MEAN CELL HGB CONCETRATION (test code=MCHC) 27.7 gram/dL 33.0-36.0 RED CELL DISTRIBUTION WIDTH (test code=RDW) 13.4 % 11.6-16.2 RED CELL DISTRIBUTION WIDTH SD (test code=RDW-SD) 39.3 fL 37.0-51.0 PLATELET COUNT (test code=PLT) 227 K/mm3 150-450 MEAN PLATELET VOLUME (test code=MPV) 10.7 fL 6.7-11.0 NEUTROPHIL % (test code=NT%) 49.0 % 39.0-69.0 IMMATURE GRANULOCYTE % (test code=IG%) 0.2 % 0.0-5.0 LYMPHOCYTE % (test code=LY%) 38.8 % 25.0-55.0 MONOCYTE % (test code=MO%) 9.7 % 0.0-10.0 EOSINOPHIL % (test code=EO%) 2.0 % 0.0-5.0 BASOPHIL % (test code=BA%) 0.3 % 0.0-1.0 NUCLEATED RBC % (test code=NRBC%) 0.0 % 0-0 NEUTROPHIL # (test code=NT#) 2.88 K/mm3 1.8-7.7 IMMATURE GRANULOCYTE # (test code=IG#) 0.01 x10 3/uL 0-0.03 LYMPHOCYTE # (test code=LY#) 2.28 K/mm3 1.0-5.0 MONOCYTE # (test code=MO#) 0.57 K/mm3 0-0.8 EOSINOPHIL # (test code=EO#) 0.12 K/mm3 0.0-0.5 BASOPHIL # (test code=BA#) 0.02 K/mm3 0.0-0.2 NUCLEATED RBC # (test code=NRBC#) 0.00 K/mm3 0.0-0.1 MANUAL DIFF REQUIRED (test code=MDIFF) NO, ONLY SCAN NEEDED DIFFERENTIAL [id number] 11:54:00* Test Item Value Reference Range Comments STAIN ACCEPTABILITY (test code=STN ACCEPTABLE) CABOT RINGS (test code=CAB) MORPHOLOGY COMMENT (test code=MOC) PLATELET ESTIMATE (test code=PLTEST) PLATELET MORPHOLOGY (test code=PLTMORPH) CBC W/AUTO [id number] 11:53:00* Test Item Value Reference Range Comments WHITE BLOOD CELL (test code=WBC) K/mm3 4.5-12.5 RED BLOOD CELL (test code=RBC) mill/mm3 4.0-5.8 HEMOGLOBIN (test code=HGB) gram/dL 13.0-17.5 HEMATOCRIT (test code=HCT) 44.8 % 42.0-52.0 MEAN CELL VOLUME (test code=MCV) fL 80-98 MEAN CELL HGB (test code=MCH) picogram 27.0-33.0 MEAN CELL HGB CONCETRATION (test code=MCHC) gram/dL 33.0-36.0 RED CELL DISTRIBUTION WIDTH (test code=RDW) % 11.6-16.2 RED CELL DISTRIBUTION WIDTH SD (test code=RDW-SD) fL 37.0-51.0 PLATELET COUNT (test code=PLT) K/mm3 150-450 MEAN PLATELET VOLUME (test code=MPV) fL 6.7-11.0 NEUTROPHIL % (test code=NT%) % 39.0-69.0 IMMATURE GRANULOCYTE % (test code=IG%) % 0.0-5.0 LYMPHOCYTE % (test code=LY%) % 25.0-55.0 MONOCYTE % (test code=MO%) % 0.0-10.0 EOSINOPHIL % (test code=EO%) % 0.0-5.0 BASOPHIL % (test code=BA%) % 0.0-1.0 NEUTROPHIL # (test code=NT#) K/mm3 1.8-7.7 LYMPHOCYTE # (test code=LY#) K/mm3 1.0-5.0 MONOCYTE # (test code=MO#) K/mm3 0-0.8 EOSINOPHIL # (test code=EO#) K/mm3 0.0-0.5 BASOPHIL # (test code=BA#) K/mm3 0.0-0.2 [id number] 13:59:00 RUN DATE: 10/09/18 [facility] PAGE 1 RUN TIME: 1359 Specimen Inqui ry RUN USER: INTERFACE PATIENT: GLENN BAUM ACCT #: [id number] LOC: MICHAEL U #: [id number] AGE/SX: 37/M ROOM: [facility] RE09/25/18REG DR: Surinder Trevino MD : 81 BED: A DIS: 09/29/18 STATUS: DIS IN TLOC: SPEC #: [id number] RECD: 09/28/18 STATUS: SOUT REQ #: [id number] [place]ER[place]: 09/28/18- [facility] DR: Brett Jessica ENTERED: 09/28/18 SP TYPE: TESTIS OTHR DR: Rachid Moore MD,Marcus Peralta,Mei painter,Jim Syed ,Camacho Stinson MD TOMMY OR REGISTRYORDERED: GROSS COPIES TO: Rachid Moore MD [address] [place] [address] Brett Jessica MD [address] [place] [address] Marcus Jessica MD [address] [place] , [place] [id number] Mei Peralta MD [address] [place], [place] [id number] Jim Barney MD [address] [place], [place] [id number] Camacho Syed MD [address] [facility] [address] [place] [id number] TUMOR REGISTRY MARKERS: MALIGNANCY PROCEDURES: GROSS (10/09/18-134) CONTINUED ON NEXT PAGE RUN DATE: 10/09/18 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) Seminoma: Seminoma Nonseminomatous types: None present Tumor extension: Tumor limited to testis Spermatic cord margin: Uninvolved by tumor Lymphovascular invasion: Not identified Regional lymph nodes: No lymph nodes submitted or found Pathologic Stage Classification (pTNM, AGCC 8th edition): pT1b pNX Pre orchiectomy serum markers: Serum AFP 1.8 ng/mL (0-8.3) Serum b-hCG 79 mI U/mL (0-3) Serum LDH 274 IU/L (84- 246) FINAL DIAGNOSIS Left testicular mass, 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 RUN TIME: 1359 Specimen Inquiry RUN USER: INTERFACE SPEC #: [id number] PATIENT: GLENN BAUM #[id number] (Continued) MACROSCOPIC The specimen is received in a small amount of formalin labeled with the patient's name, "l eft testicle" and consists of a radical orchiectomy specimen including a segme nt of spermatic cord measuring 10 cm in length with diameter up to 2.3 cm, epi didymis and testis with covering measuring 6.5 x 4.5 by up to 3.5 cm. Section ing through the testis shows the organ to be almost entirely replaced by a fajardo -pink lesion with a slightly lobulated cut surface. Areas of hemorrhagic disc oloration and pale yellow discoloration compatible with necrosis are identifie d. The specimen is allowed to fix prior to further sectioning. After the spe cimen is allowed to fix it is reexamined. The mass is confined to the testis and measures up to 6.5 X 4 X 2.7 cm. It has a mottled nba-rsneo-dvwjx appeara nce. The epididymis appears unremarkable. Section code: 1A, spermatic cord margin; 1B-1C, additional sections from mid portion spermatic cord; and 1 D-1I- samples of the testis with tumor. GROSS PERFORMED AT [facility] [address] [place] [address] [phone])[phone] MICROSCOPIC Multiple sections of the tumor show a lesion formed of a diffuse proliferation of malignant cells w ith prominent areas of tumor necrosis. The lesion has a vaguely nodular/lobul ated appearance with rounded pushing borders. The malignant cells have enlarg ed, polygonally shaped, vesicular nuclei with prominent nucleoli. The cytopla smic borders are indistinct. Scattered mitotic figures are present. A fine n etwork of vessels extends throughout the lesion. A few scattered lymphocytes are present in the lesion. The majority of these occur within fibrous septae that extend through the lesion. Benign seminiferous tubules are present in so me sections. Active spermatogenesis is not appreciated. The histologi c features are compatible with seminoma. No other components are noted. Paraf fin embedded tissue was submitted for immunoperoxidase stains to exclude a min or nonseminomatous component. The slides are reviewed at [facility]. The controls stain appropriately. The malignant cells are show n to be strongly and diffusely positive for D2-40 and OCT-4. The malignant ce lls are negative for AFP and hernadez-cytokeratin. Very focal positivity for CD30 is noted. The positive immunoperoxidase stains highlight patchy areas of intr atubular germ cell neoplasia. The histologic features in correlation with the immunoperoxidase staining pattern supports a diagnosis of PURE SEMINOMA. The lesion is confined to the testis with no extension through the tunica. Rete testis is present in one section near tumor. The tumor has a rounded pushing margins and extends toward the rete testis. However, invasion into rete testis is not seen. Sections of the spermatic cord are negative for malignancy. CONTINUED ON NEXT PAGE RUN DATE: 0 10/09/18 [facility] PAGE 4 RUN TIME: 1359 Specimen Inquiry R UN USER: INTERFACE --- ---------SPEC #: [id number] PATIENT: GLENN BAUM #[id number] (Continued) MICROSCOPIC (Continued) Intradepartmental consultation: FA. All of the stains, including a ny controls performed, stain appropriately. MICROSCOPIC PERFORMED AT [facility] [address] [place] [address] [phone] PERFORM[address] SITE Diagnosis performed at : [facility], [place] [address] [facility] [place] [address] Signed SIGNATURE ON FILE Killian Akhtar MD 10/09/18 1359 END OF REPORT AB THYROID [id number] 05:15:00* Test Item Value Reference Range Comments AB THYROID PEROXIDASE (test code=THYPAB) 17 IU/mL 0-34 Performed At: [facility] [id number] Higinio Anderson MD Ph:[phone] [id number] 16:08:00* Test Item Value Reference Range Comments GLUBED (test code=GLUBED) 137 mg/dL 74-106 Performed by certified mingler operator at [facility] BASIC METABOLIC [id number] 05:24:00* Test Item Value Reference Range Comments SODIUM (test code=NA) 136 mmol/L 136-145 POTASSIUM (test code=K) 4.2 mmol/L 3.5-5.1 CHLORIDE (test code=CL) 104.0 mmol/L 98-107 CARBON DIOXIDE (test code=CO2) 23.0 mmol/L 21-32 ANION GAP (test code=GAP) 13.2 10-20 GLUCOSE (test code=GLU) 108 mg/dL 74-106 BLOOD UREA NITROGEN (test code=BUN) 14 mg/dL 7-18 GLOMERULAR FILTRATION RATE (test code=GFR) > 60 mL/min >=60 Estimated GFR by using Modified MDRD formula.Chronic kidney disease is defined as either kidney damageor GFR <60 mL/min/1.73 m2 for >3 months. CREATININE (test code=CREAT) 1.20 mg/dL 0.7-1.3 BUN/CREATININE RATIO (test code=BUN/CREA) 11.7 10-20 CALCIUM (test code=CA) 8.7 mg/dL 8.5-10.1 BASIC METABOLIC [id number] 05:15:00* Test Item Value Reference Range Comments SODIUM (test code=NA) 136 mmol/L 136-145 POTASSIUM (test code=K) 4.2 mmol/L 3.5-5.1 CHLORIDE (test code=CL) 104.0 mmol/L 98-107 CARBON DIOXIDE (test code=CO2) mmol/L 21-32 ANION GAP (test code=GAP) 10-20 GLUCOSE (test code=GLU) mg/dL 74-106 BLOOD UREA NITROGEN (test code=BUN) mg/dL 7-18 GLOMERULAR FILTRATION RATE (test code=GFR) mL/min >=60 CREATININE (test code=CREAT) mg/dL 0.7-1.3 BUN/CREATININE RATIO (test code=BUN/CREA) 10-20 CALCIUM (test code=CA) mg/dL 8.5-10.1 T4 [id number] 05:14:00* Test Item Value Reference Range Comments T4 FREE (test code=T4F) 0.80 ng/dL 0.76-1.46 THYROID STIMULATING [id number] 05:14:00* Test Item Value Reference Range Comments THYROID STIMULATING HORMONE (test code=TSH) 4.690 uIU/mL 0.36-3.74 TSH REFERENCE RANGES: EUTHYROID: 0.35 - 4.3 mIU/mL HYPO : > 5.5 mIU/mL HYPER : < 0.35 mIU/mL [id number] 05:14:00* Test Item Value Reference Range Comments TESTOSTERONE (test code=TEST) 578 ng/dL 264-916 Adult male reference interval is based on a population ofhealthy nonobese males (BMI <30) between 19 and 39 yearsold. isabell Acuña.al. JCEM 2017,102;8747-6174. PMID:[id number].Performed At: [facility] [id number] Higinio Anderson MD Ph:[phone] T4 [id number] 21:11:00* Test Item Value Reference Range Comments T4 FREE (test code=T4F) 0.90 ng/dL 0.76-1.46 THYROID STIMULATING [id number] 21:11:00* Test Item Value Reference Range Comments THYROID STIMULATING HORMONE (test code=TSH) 1.730 uIU/mL 0.36-3.74 TSH REFERENCE RANGES: EUTHYROID: 0.35 - 4.3 mIU/mL HYPO : > 5.5 mIU/mL HYPER : < 0.35 mIU/mL [id number] 15:06:00* Test Item Value Reference Range Comments GLUBED (test code=GLUBED) 83 mg/dL 74-106 Performed by certified mingler operator at [facility] [id number] 12:12:00* Test Item Value Reference Range Comments GLUBED (test code=GLUBED) 87 mg/dL 74-106 Performed by certified mingler operator at [facility] [id number] 08:25:00* Test Item Value Reference Range Comments GLUBED (test code=GLUBED) 86 mg/dL 74-106 Performed by certified mingler operator at [facility] BASIC METABOLIC [id number] 06:24:00* Test Item Value Reference Range Comments SODIUM (test code=NA) 140 mmol/L 136-145 POTASSIUM (test code=K) 3.7 mmol/L 3.5-5.1 CHLORIDE (test code=CL) 103.0 mmol/L 98-107 CARBON DIOXIDE (test code=CO2) 26.0 mmol/L 21-32 ANION GAP (test code=GAP) 14.7 10-20 GLUCOSE (test code=GLU) 84 mg/dL 74-106 BLOOD UREA NITROGEN (test code=BUN) 12 mg/dL 7-18 GLOMERULAR FILTRATION RATE (test code=GFR) > 60 mL/min >=60 Estimated GFR by using Modified MDRD formula.Chronic kidney disease is defined as either kidney damageor GFR <60 mL/min/1.73 m2 for >3 months. CREATININE (test code=CREAT) 1.20 mg/dL 0.7-1.3 BUN/CREATININE RATIO (test code=BUN/CREA) 9.8 10-20 CALCIUM (test code=CA) 8.9 mg/dL 8.5-10.1 BASIC METABOLIC [id number] 06:23:00* Test Item Value Reference Range Comments SODIUM (test code=NA) 140 mmol/L 136-145 POTASSIUM (test code=K) 3.7 mmol/L 3.5-5.1 CHLORIDE (test code=CL) 103.0 mmol/L 98-107 CARBON DIOXIDE (test code=CO2) mmol/L 21-32 ANION GAP (test code=GAP) 10-20 GLUCOSE (test code=GLU) mg/dL 74-106 BLOOD UREA NITROGEN (test code=BUN) mg/dL 7-18 GLOMERULAR FILTRATION RATE (test code=GFR) mL/min >=60 CREATININE (test code=CREAT) mg/dL 0.7-1.3 BUN/CREATININE RATIO (test code=BUN/CREA) 10-20 CALCIUM (test code=CA) 8.9 mg/dL 8.5-10.1 [id number] 20:33:00* Test Item Value Reference Range Comments GLUBED (test code=GLUBED) 114 mg/dL 74-106 Performed by certified mingler operator at [facility] UR NA,[id number] 19:06:00* Test Item Value Reference Range Comments UR NA,RANDOM (test code=CHYNA) 131 mmol/L 20-110 UR PROTEIN/CREATININE [id number] 19:06:00* Test Item Value Reference Range Comments UR PROTEIN RANDOM (test code=PROTU) 7.4 mg/dL 0.0-11.9 Protein levels may be falsely elevated in patients withelevated level of aminoglycoside antibiotics in CSF and inhighly concentrated urine specimens. If false elevation issuspected, contact lab for alternated testing technique. UR CREATININE RANDOM (test code=CREATU) 94.0 mg/dL 30-125 PROTEIN/CREATININE RATIO (test code=P/CRATIO) 0.08 RATIO 0.0-0.20 UR NA,[id number] 18:58:00* Test Item Value Reference Range Comments UR NA,RANDOM (test code=CHYNA) 131 mmol/L 20-110 UR PROTEIN/CREATININE [id number] 18:58:00* Test Item Value Reference Range Comments UR PROTEIN RANDOM (test code=PROTU) mg/dL 0.0-11.9 UR CREATININE RANDOM (test code=CREATU) mg/dL 30-125 PROTEIN/CREATININE RATIO (test code=P/CRATIO) RATIO 0.0-0.20 URINALYSIS [id number] 18:29:00* Test Item Value Reference Range Comments UA COLOR (test code=COLU) STRAW YELLOW UA APPEARANCE (test code=APPU) CLEAR CLEAR UA GLUCOSE DIPSTICK (test code=DGLUU) NEGATIVE mg/dL NEGATIVE UA BILIRUBIN DIPSTICK (test code=BILU) NEGATIVE mg/dL NEGATIVE UA KETONE DIPSTICK (test code=KETU) Negative mg/dL NEGATIVE UA SPECIFIC GRAVITY (test code=SGU) 1.011 1.001-1.035 UA BLOOD DIPSTICK (test code=NIRMAL) Negative NEGATIVE UA PH DIPSTICK (test code=KRUNAL) 6.0 5.0-8.0 UA PROTEIN DIPSTICK (test code=PROU) Negative mg/dL NEGATIVE UA UROBILINIOGEN DIPSTICK (test code=URO) NEGATIVE mg/dL NEGATIVE UA NITRITE DIPSTICK (test code=ARAMIS) NEGATIVE NEGATIVE UA LEUKOCYTE ESTERASE W REFLEX (test code=LEUUR) NEGATIVE NEGATIVE UA WBC (test code=WBCU) 0-5 #/HPF 0-5 UA EPITHELIAL CELLS (test code=EPIU) FEW per HPF FEW UA BACTERIA (test code=BACU) FEW #/HPF NONE UA MUCUS (test code=MUCU) FEW #/LPF FEW SPECIMEN COMMENTS: URINEUrine Source? MidstreamURINALYSIS [id number] 18:24:00* Test Item Value Reference Range Comments UA COLOR (test code=COLU) STRAW YELLOW UA APPEARANCE (test code=APPU) CLEAR CLEAR UA GLUCOSE DIPSTICK (test code=DGLUU) NEGATIVE mg/dL NEGATIVE UA BILIRUBIN DIPSTICK (test code=BILU) NEGATIVE mg/dL NEGATIVE UA KETONE DIPSTICK (test code=KETU) Negative mg/dL NEGATIVE UA SPECIFIC GRAVITY (test code=SGU) 1.011 1.001-1.035 UA BLOOD DIPSTICK (test code=NIRMAL) Negative NEGATIVE UA PH DIPSTICK (test code=KRUNAL) 6.0 5.0-8.0 UA PROTEIN DIPSTICK (test code=PROU) Negative mg/dL NEGATIVE UA UROBILINIOGEN DIPSTICK (test code=URO) NEGATIVE mg/dL NEGATIVE UA NITRITE DIPSTICK (test code=ARAMIS) NEGATIVE NEGATIVE UA LEUKOCYTE ESTERASE W REFLEX (test code=LEUUR) NEGATIVE NEGATIVE UA WBC (test code=WBCU) per HPF 0-5 SPECIMEN COMMENTS: URINEUrine Source? [id number] 16:49:00* Test Item Value Reference Range Comments GLUBED (test code=GLUBED) 100 mg/dL 74-106 Performed by certified mingler operator at [facility] T4 [id number] 15:51:00* Test Item Value Reference Range Comments T4 FREE (test code=T4F) 0.80 ng/dL 0.76-1.46 THYROID STIMULATING [id number] 15:51:00* Test Item Value Reference Range Comments THYROID STIMULATING HORMONE (test code=TSH) 4.690 uIU/mL 0.36-3.74 TSH REFERENCE RANGES: EUTHYROID: 0.35 - 4.3 mIU/mL HYPO : > 5.5 mIU/mL HYPER : < 0.35 mIU/mL [id number] 15:51:00* Test Item Value Reference Range Comments TESTOSTERONE (test code=TEST) ng/dL 264-916 [id number] 15:35:00* Test Item Value Reference Range Comments GLYCOSYLATED HEMOGLOBIN (HA1C) (test code=GLYHGB) 4.7 % HbA1 4.8-6.0 ESTIMATED AVERAGE GLUCOSE (test code=EAG) 88 MG/DL [id number] 12:38:00* Test Item Value Reference Range Comments GLUBED (test code=GLUBED) 103 mg/dL 74-106 Performed by certified mingler operator at [facility] BASIC METABOLIC [id number] 11:24:00* Test Item Value Reference Range Comments SODIUM (test code=NA) 139 mmol/L 136-145 POTASSIUM (test code=K) 3.8 mmol/L 3.5-5.1 CHLORIDE (test code=CL) 105.0 mmol/L 98-107 CARBON DIOXIDE (test code=CO2) 26.0 mmol/L 21-32 ANION GAP (test code=GAP) 11.8 10-20 GLUCOSE (test code=GLU) 94 mg/dL 74-106 BLOOD UREA NITROGEN (test code=BUN) 10 mg/dL 7-18 GLOMERULAR FILTRATION RATE (test code=GFR) > 60 mL/min >=60 Estimated GFR by using Modified MDRD formula.Chronic kidney disease is defined as either kidney damageor GFR <60 mL/min/1.73 m2 for >3 months. CREATININE (test code=CREAT) 1.20 mg/dL 0.7-1.3 BUN/CREATININE RATIO (test code=BUN/CREA) 8.3 10-20 CALCIUM (test code=CA) 9.0 mg/dL 8.5-10.1 PT WANTS TO COME BACKM LATER @[email or web address] 09/27/18 [id number] 11:24:00* Test Item Value Reference Range Comments PHOSPHORUS (test code=PHOS) 3.2 mg/dL 2.5-4.9 PT WANTS TO COME BACKM LATER @[email or web address] 09/27/18 [id number] 11:24:00* Test Item Value Reference Range Comments MAGNESIUM (test code=MAG) 1.9 mg/dL 1.8-2.4 PT WANTS TO COME BACKM LATER @[email or web address] 09/27/18 0723BASIC METABOLIC PANEL 2018-09-27 11:15:00* Test Item Value Reference Range Comments SODIUM (test code=NA) 139 mmol/L 136-145 POTASSIUM (test code=K) 3.8 mmol/L 3.5-5.1 CHLORIDE (test code=CL) 105.0 mmol/L 98-107 CARBON DIOXIDE (test code=CO2) mmol/L 21-32 ANION GAP (test code=GAP) 10-20 GLUCOSE (test code=GLU) mg/dL 74-106 BLOOD UREA NITROGEN (test code=BUN) mg/dL 7-18 GLOMERULAR FILTRATION RATE (test code=GFR) mL/min >=60 CREATININE (test code=CREAT) mg/dL 0.7-1.3 BUN/CREATININE RATIO (test code=BUN/CREA) 10-20 CALCIUM (test code=CA) 9.0 mg/dL 8.5-10.1 PT WANTS TO COME BACKM LATER @[email or web address] 09/27/18 [id number] 11:15:00* Test Item Value Reference Range Comments PHOSPHORUS (test code=PHOS) mg/dL 2.5-4.9 PT WANTS TO COME BACKM LATER @[email or web address] 09/27/18 [id number] 11:15:00* Test Item Value Reference Range Comments MAGNESIUM (test code=MAG) mg/dL 1.8-2.4 PT WANTS TO COME BACKM LATER @[email or web address] 09/27/18 0723CBC W/O [id number] 10:25:00* Test Item Value Reference Range Comments WHITE BLOOD CELL (test code=WBC) 9.3 K/mm3 4.5-12.5 RED BLOOD CELL (test code=RBC) 5.44 mill/mm3 4.0-5.8 HEMOGLOBIN (test code=HGB) 12.8 gram/dL 13.0-17.5 HEMATOCRIT (test code=HCT) 44.2 % 42.0-52.0 MEAN CELL VOLUME (test code=MCV) 81.3 fL 80-98 MEAN CELL HGB (test code=MCH) 23.5 picogram 27.0-33.0 MEAN CELL HGB CONCETRATION (test code=MCHC) 29.0 gram/dL 33.0-36.0 RED CELL DISTRIBUTION WIDTH (test code=RDW) 13.2 % 11.6-16.2 PLATELET COUNT (test code=PLT) 216 K/mm3 150-450 MEAN PLATELET VOLUME (test code=MPV) 11.4 fL 6.7-11.0 PT WANTS TO COMEBACK LATER @V.[email or web address] 09/27/18 0724CBC W/O [id number] 10:23:00* Test Item Value Reference Range Comments WHITE BLOOD CELL (test code=WBC) K/mm3 4.5-12.5 RED BLOOD CELL (test code=RBC) mill/mm3 4.0-5.8 HEMOGLOBIN (test code=HGB) gram/dL 13.0-17.5 HEMATOCRIT (test code=HCT) 44.2 % 42.0-52.0 MEAN CELL VOLUME (test code=MCV) fL 80-98 MEAN CELL HGB (test code=MCH) picogram 27.0-33.0 MEAN CELL HGB CONCETRATION (test code=MCHC) gram/dL 33.0-36.0 RED CELL DISTRIBUTION WIDTH (test code=RDW) % 11.6-16.2 PLATELET COUNT (test code=PLT) K/mm3 150-450 MEAN PLATELET VOLUME (test code=MPV) fL 6.7-11.0 PT WANTS TO COMEBACK LATER [email or web address] 09/27/18 0724ALPHA FETOPROTEIN TUMOR [id number] 07:29:00* Test Item Value Reference Range Comments ALPHA FETOPROTEIN TUMOR MARKER (test code=AFPTM) 1.8 ng/mL 0.0-8.3 [facility] Electrochemiluminescence Immunoassay(ECLIA)Values obtained with different assay methods or kits cannotbe used interchangeably. Results cannot be interpreted asabsolute evidence of the presence or absence of malignantdisease.This test is not interpretable in females.Performed At: [facility] [id number] Anderson MD Ph:[phone] BETA HCG TUMOR [id number] 07:29:00* Test Item Value Reference Range Comments BETA HCG TUMOR MARKER (test code=HCGTU) 79 mIU/mL 0-3 [facility] ECLIA methodologyPerformed At: [address] [id number] Anderson MD Ph:[phone] performed at: [facility] [place] [address] ALPHA FETOPROTEIN TUMOR [id number] 03:10:00* Test Item Value Reference Range Comments ALPHA FETOPROTEIN TUMOR MARKER (test code=AFPTM) 1.8 ng/mL 0.0-8.3 [facility] Electrochemiluminescence Immunoassay(ECLIA)Values obtained with different assay methods or kits cannotbe used interchangeably. Results cannot be interpreted asabsolute evidence of the presence or absence of malignantdisease.This test is not interpretable in females.Performed At: [facility] [address] [id number] Kyle L MD Ph:[phone] BETA HCG TUMOR [id number] 03:10:00* Test Item Value Reference Range Comments BETA HCG TUMOR MARKER (test code=HCGTU) mIU/mL 0-3 [id number] 20:39:00* Test Item Value Reference Range Comments GLUBED (test code=GLUBED) 95 mg/dL 74-106 Performed by certified mingler operator at [facility] FE W/TOTAL IRON BINDING CAP.2018-09-26 20:27:00* Test Item Value Reference Range Comments SERUM IRON (test code=IRON) 50 ug/dL 50-175 TOTAL IRON BINDING CAPACITY (test code=TIBC) 458 mcg/dL 250-450 IRON SATURATION (test code=FESAT) 10.92 % 13-45 VITAMIN [id number] 20:27:00* Test Item Value Reference Range Comments VITAMIN B12 (test code=VITB12) 1104 pg/mL 193-986 FOLIC [id number] 20:27:00* Test Item Value Reference Range Comments FOLIC ACID (test code=FOL) 19.2 ng/mL 3.10-17.50 [id number] 20:27:00* Test Item Value Reference Range Comments FERRITIN (test code=GITA) 101 ng/mL 8-388 LACTIC DEHYDROGENASE(LDH)2018-09-26 20:01:00* Test Item Value Reference Range Comments LACTIC DEHYDROGENASE(LDH) (test code=LDH) 274 IUnit/L 84-246 - US RETRO [id number] 18:31:00 Name: GLENN BAUM [facility] : 1980 Age/S: 37 / M [address] Unit #: [id number] Loc: [place] [address] Phys: Rachid Moore MD Acct: [id number] Dis Date: Status: ADM IN PHONE #: [phone] Exam Date: 09/26/2018 1744 FAX #: [phone] Reason: eval size EXAMS: CPT CODE: [id number] [facility] [address] EXAM: Ultrasound retroperitoneum, limited; INFORMATION: Testicular mass; evaluate renal size; FINDINGS: The kidneys are of normal size and shape; no hydronephrosis, no stones and no parenchymal abnormalities. The right kidney measures 11.8 x 5.9 x 6.3 cm, with a parenchymal thickness The left kidney measures 10.2 x 5.6 x 5.1 cm, with a parenchymal thickness of 2.1 cm. The urinary bladder is unremarkable and bilateral ureteral jets were seen. Increased echogenicity of the hepatic parenchyma. IMPRESSION: 1. Normal renal ultrasound. 2. Normal bladder. 3. Fatty liver. at 1831 Reported and signed by: Adilson Guzmán M.D. CC: Surinder Trevino MD; Rachid Moore MD; Mei Peralta MD Technologist: Jay Gibson Trnncb Date/Time: 09/26/2018 (183) [email or web address] Orig Print D/T: S: 09/26/2018 (1835) Probe: PAGE 1 Signed Report [id number] 16:47:00* Test Item Value Reference Range Comments GLUBED (test code=GLUBED) 146 mg/dL 74-106 Performed by certified mingler operator at [facility] - US SCROTUM AND [id number] 15:46:00 Name: GLENN BAUM [facility] : 1980 Age/S: 37 / M [address] Unit #: [id number] Loc: [place] [address] Phys: Pricilla Adame Acct: [id number] Dis Date: Status: ADM IN PHONE #: [phone] Exam Date: 09/26/2018 135 FAX #: [phone] Reason: Testicular mass EXAMS: CPT CODE: [id number] [place] SCROTUM AND CNTS 48863 EXAM: Scrotal ultrasound and duplex sonography; INFORMATION: Left testicular mass; painful swelling; TECHNIQUE AND FINDINGS: Grayscale imaging was combined with color Doppler sonography and spectral analysis. The left testicle shows a lobular contour and gross architectural distortion caused by a solid mass lesion which is of mixed echogenicity, mostly hypoechoic compared with the remaining normal parenchyma. Color Doppler exam shows hyperemia of the tumor. The tumor replaces almost the entire testicular tissue. The left testicle measures 4.9 x 2.9 x 4.2 cm. The right testicle measures 5.1 x 1.5 x 3.1 cm. The right testicle shows normal parenchymal echogenicity with the exception of a 2 mm cyst. The epididymis is unremarkable bilaterally. Small bilateral hydroceles and small bilateral varicoceles. IMPRESSION: 1. 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 2. Tiny cyst in the otherwise normal right testicle. 3. Small bilateral hydroceles. 4. Small bilateral varicoceles. at 1533 Reported and signed by: Adilson Guzmán M.D. CC: Pricilla Adame; Mei Peralta MD Technologist: [facility] Gibson [facility] Date/Time: 09/26/2018 (1546) Wade Orig Print D/T: S: 09/26/2018 (8396) Probe: PAGE 1 Signed Report [id number] 13:06:00* Test Item Value Reference Range Comments GLUBED (test code=GLUBED) 89 mg/dL 74-106 Performed by certified mingler operator at [facility] - CT ABD PELVIS W/O [id number] 10:18:00 Name: GLENN BAUM [facility] : 1980 Age/S: 37 / M [address] [facility] Unit #: [id number] Loc: [place] [address] Phys: Mei Peralta MD Acct: [id number] Dis Date: Status: ADM IN PHONE #: [phone] Exam Date: 09/26/2018 0835 FAX #: [phone] Reason: KIDNEY FUNCTION EXAMS: CPT CODE: [id number] CT ABD PELVIS W/O CONT 98646 HISTORY: Testicular mass. COMPARISON: None available. CT abdomen and pelvis: Stone protocol. Automated exposure control. CT of abdomen: Noncontrast liver is without mass or lesions. The liver measured 23.2 cm in length. Gallbladder is without radiopaque stones. Spleen is not enlarged. The stomach is distended incompletely however it is normal. Noncontrast pancreas and adrenals are normal. Kidneys are free from hydroureteronephrosis. No calyceal stones. Pathologic retroperitoneal or periaortic lymph node just superior to the level of the renal hilum and inferior medial to the left adrenal measuring 2.6 cm. No other pathologic adenopathy. No bowel obstruction or colitis or diverticulitis or enteritis. Constipation. CT PELVIS: Appendix is normal. Pelvic bowel loops are unobstructed. Urinary bladder is decompressed. The prostate is visible. No pathologic adenopathy. No free fluid or free air. Subcutaneous tissues and the musculature are normal in appearance. No lytic or blastic lesions are noted within the bony skeleton. Old fracture deformity of the right pubic bone. IMPRESSION: Single pathologic left para- aortic retroperitoneal lymph node at the level of the superior pole of t he left kidney in the inferior medial to the left adrenal measuring 2.6 cm. No other pathologic adenopathy or evidence of metastatic disease. PAGE 1 Signed Report (CONTINUED) Name: GLENN BAUM [facility] : 1980 Age/S: 37 / M [address] [facility] Unit #: [id number] Loc: [place] [address] Phys: Sandrita Peralta MD Acct: [id number] Di s Date: Status: ADM IN PHONE #: [phone] Exam Date: 09/26/2018 0835 FAX #: Reason: KIDNEY FUNCTION EXAMS: CPT CODE: [id number] CT ABD PELVIS W/O CONT 90807 <Continued> at 1018 Reported and signed by: Nadeem Milton M.D. CC: Mei Peralta MD echnologist:Allyn Rodríguez RT(R),CT; CTDI: DLP: Trnscb Date /Time: 09/26/2018 (1018) CarleeTH4 Orig Print D/T: S: 06/2019 (1022) CTDI: DLP: PAGE 2 Signed Report - CT CHEST W/O [id number] 09:52:00 Name: GLENN BAUM [facility] : 1980 Age/S: 37 / M [address] [facility] Unit #: [id number] Loc: [place] [address] Phys: Mei Peralta MD Acct: [id number] Dis Date: Status: ADM IN PHONE #: [phone] Exam Date: 09/26/2018834 FAX #: [phone] Reason: ORDERED EXAMS: CPT CODE: [id number] CT CHEST W/O CONTRAST 44286 HISTORY: Testicular cancer. COMPARISON: None available. CT chest without contrast: Automated exposure control. The lungs are clear of infiltrates, effusion or congestion. No metastatic nodules are noted. No bronchiectasis, honeycombing or fibrosis or endobronchial lesions. Normal caliber unopacified aorta and pulmonary arteries. The thyroid glands are unremarkable. Esophageal wall is not thickened. Cardiac silhouette is normal without pericardial effusion. Subcutaneous tissues and the musculature are normal in appearance. No lytic or blastic lesions are noted within the bony skeleton. IMPRESSION: The lungs are clear of metastatic disease. No infiltrates, effusion or congestion. No bronchiectasis, honeycombing or fibrosis. No pathologic adenopathy. at 0952 Reported and signed by: Nadeem Milton M.D. CC: Mei Peralta MD Technologist:Allyn Rodríguez RT(R),CT; CTDI: DLP: Trnscb Date/Time: 09/26/2018 (0952) CarleeTH4 Orig Print D/T: S: 09/26/2018 (0955) CTDI: DLP: PAGE 1 Signed Report GLUBED 2018-09-26 08:28:00* Test Item Value Reference Range Comments GLUBED (test code=GLUBED) 80 mg/dL 74-106 Performed by certified mingler operator at [facility] COMPREHENSIVE METABOLIC [id number] 22:53:00* Test Item Value Reference Range Comments SODIUM (test code=NA) 141 mmol/L 136-145 POTASSIUM (test code=K) 3.6 mmol/L 3.5-5.1 CHLORIDE (test code=CL) 106.0 mmol/L 98-107 CARBON DIOXIDE (test code=CO2) 27.0 mmol/L 21-32 ANION GAP (test code=GAP) 11.6 10-20 GLUCOSE (test code=GLU) 134 mg/dL 74-106 BLOOD UREA NITROGEN (test code=BUN) 10 mg/dL 7-18 GLOMERULAR FILTRATION RATE (test code=GFR) > 60 mL/min >=60 Estimated GFR by using Modified MDRD formula.Chronic kidney disease is defined as either kidney damageor GFR <60 mL/min/1.73 m2 for >3 months. CREATININE (test code=CREAT) 1.40 mg/dL 0.7-1.3 BUN/CREATININE RATIO (test code=BUN/CREA) 7.4 10-20 TOTAL PROTEIN (test code=PROT) 7.3 gram/dL 6.4-8.2 ALBUMIN (test code=ALB) 3.5 g/dL 3.4-5.0 GLOBULIN (test code=GLOB) 3.8 gram/dL 2.7-4.2 ALBUMIN/GLOBULIN RATIO (test code=A/G) 0.9 0.75-1.50 CALCIUM (test code=CA) 9.0 mg/dL 8.5-10.1 BILIRUBIN TOTAL (test code=BILT) 0.40 mg/dL 0.0-1.0 SGOT/AST (test code=AST) 18 IUnit/L 15-37 SGPT/ALT (test code=ALT) 32 IUnit/L 12-78 ALKALINE PHOSPHATASE TOTAL (test code=ALKP) 86 IUnit/L 45-117 Note change in reference range due to change in reagent. CBC W/AUTO [id number] 22:32:00* Test Item Value Reference Range Comments WHITE BLOOD CELL (test code=WBC) 11.2 K/mm3 4.5-12.5 RED BLOOD CELL (test code=RBC) 5.39 mill/mm3 4.0-5.8 HEMOGLOBIN (test code=HGB) 12.5 gram/dL 13.0-17.5 HEMATOCRIT (test code=HCT) 44.1 % 42.0-52.0 MEAN CELL VOLUME (test code=MCV) 81.8 fL 80-98 MEAN CELL HGB (test code=MCH) 23.2 picogram 27.0-33.0 MEAN CELL HGB CONCETRATION (test code=MCHC) 28.3 gram/dL 33.0-36.0 RED CELL DISTRIBUTION WIDTH (test code=RDW) 13.2 % 11.6-16.2 RED CELL DISTRIBUTION WIDTH SD (test code=RDW-SD) 39.2 fL 37.0-51.0 PLATELET COUNT (test code=PLT) 226 K/mm3 150-450 MEAN PLATELET VOLUME (test code=MPV) 10.9 fL 6.7-11.0 NEUTROPHIL % (test code=NT%) 47.7 % 39.0-69.0 IMMATURE GRANULOCYTE % (test code=IG%) 0.2 % 0.0-5.0 LYMPHOCYTE % (test code=LY%) 42.5 % 25.0-55.0 MONOCYTE % (test code=MO%) 7.3 % 0.0-10.0 EOSINOPHIL % (test code=EO%) 2.0 % 0.0-5.0 BASOPHIL % (test code=BA%) 0.3 % 0.0-1.0 NUCLEATED RBC % (test code=NRBC%) 0.0 % 0-0 NEUTROPHIL # (test code=NT#) 5.33 K/mm3 1.8-7.7 IMMATURE GRANULOCYTE # (test code=IG#) 0.02 x10 3/uL 0-0.03 LYMPHOCYTE # (test code=LY#) 4.74 K/mm3 1.0-5.0 MONOCYTE # (test code=MO#) 0.82 K/mm3 0-0.8 EOSINOPHIL # (test code=EO#) 0.22 K/mm3 0.0-0.5 BASOPHIL # (test code=BA#) 0.03 K/mm3 0.0-0.2 NUCLEATED RBC # (test code=NRBC#) 0.00 K/mm3 0.0-0.1 MANUAL DIFF REQUIRED (test code=MDIFF) NO, ONLY SCAN NEEDED DIFFERENTIAL [id number] 22:32:00* Test Item Value Reference Range Comments STAIN ACCEPTABILITY (test code=STN ACCEPTABLE) STAIN ACCEPTABLE MORPHOLOGY COMMENT (test code=MOC) NORMAL PLATELET ESTIMATE (test code=PLTEST) ADEQUATE PLATELET MORPHOLOGY (test code=PLTMORPH) GIANT PLATELETS SEEN PROTHROMBIN [id number] 22:23:00* Test Item Value Reference Range Comments PROTHROMBIN TIME PATIENT (test code=PTP) 10.6 seconds 9.0-14.0 INTERNATIONAL NORMAL RATIO (test code=INR) 0.9 0.8-1.2 The therapeutic range for oral anticoagulant therapy formost indications is an international normalized ratio (INR)of between 2.0 and 3.0. The recommended therapeutic INRrange for various clinical situations is listed below: Clinical Situation INR range Pulmonary e mbolism treatment (2.0-3.0)Venous thrombosis treatmentVenous thrombosis prophylaxis (high risk surgery)Prevention of systemic embolism from: Acute myocardial infarction Valvular heart disease Atrial fibrillation Mechanical prosthetic heart valves (2.5-3.5) IS PATIENT ON ANTICOAGULANTS? YLIST ANTICOAGULANTS ASPIRINCBC W/AUTO DIFF 2018-09-25 22:13:00* Test Item Value Reference Range Comments WHITE BLOOD CELL (test code=WBC) 11.2 K/mm3 4.5-12.5 RED BLOOD CELL (test code=RBC) 5.39 mill/mm3 4.0-5.8 HEMOGLOBIN (test code=HGB) 12.5 gram/dL 13.0-17.5 HEMATOCRIT (test code=HCT) 44.1 % 42.0-52.0 MEAN CELL VOLUME (test code=MCV) 81.8 fL 80-98 MEAN CELL HGB (test code=MCH) 23.2 picogram 27.0-33.0 MEAN CELL HGB CONCETRATION (test code=MCHC) 28.3 gram/dL 33.0-36.0 RED CELL DISTRIBUTION WIDTH (test code=RDW) 13.2 % 11.6-16.2 RED CELL DISTRIBUTION WIDTH SD (test code=RDW-SD) 39.2 fL 37.0-51.0 PLATELET COUNT (test code=PLT) 226 K/mm3 150-450 MEAN PLATELET VOLUME (test code=MPV) 10.9 fL 6.7-11.0 NEUTROPHIL % (test code=NT%) 47.7 % 39.0-69.0 IMMATURE GRANULOCYTE % (test code=IG%) 0.2 % 0.0-5.0 LYMPHOCYTE % (test code=LY%) 42.5 % 25.0-55.0 MONOCYTE % (test code=MO%) 7.3 % 0.0-10.0 EOSINOPHIL % (test code=EO%) 2.0 % 0.0-5.0 BASOPHIL % (test code=BA%) 0.3 % 0.0-1.0 NUCLEATED RBC % (test code=NRBC%) 0.0 % 0-0 NEUTROPHIL # (test code=NT#) 5.33 K/mm3 1.8-7.7 IMMATURE GRANULOCYTE # (test code=IG#) 0.02 x10 3/uL 0-0.03 LYMPHOCYTE # (test code=LY#) 4.74 K/mm3 1.0-5.0 MONOCYTE # (test code=MO#) 0.82 K/mm3 0-0.8 EOSINOPHIL # (test code=EO#) 0.22 K/mm3 0.0-0.5 BASOPHIL # (test code=BA#) 0.03 K/mm3 0.0-0.2 NUCLEATED RBC # (test code=NRBC#) 0.00 K/mm3 0.0-0.1 MANUAL DIFF REQUIRED (test code=MDIFF) NO, ONLY SCAN NEEDED DIFFERENTIAL [id number] 22:13:00* Test Item Value Reference Range Comments STAIN ACCEPTABILITY (test code=STN ACCEPTABLE) CABOT RINGS (test code=CAB) MORPHOLOGY COMMENT (test code=MOC) PLATELET ESTIMATE (test code=PLTEST) PLATELET MORPHOLOGY (test code=PLTMORPH) CBC W/AUTO [id number] 22:13:00* Test Item Value Reference Range Comments WHITE BLOOD CELL (test code=WBC) 11.2 K/mm3 4.5-12.5 RED BLOOD CELL (test code=RBC) 5.39 mill/mm3 4.0-5.8 HEMOGLOBIN (test code=HGB) 12.5 gram/dL 13.0-17.5 HEMATOCRIT (test code=HCT) 44.1 % 42.0-52.0 MEAN CELL VOLUME (test code=MCV) 81.8 fL 80-98 MEAN CELL HGB (test code=MCH) 23.2 picogram 27.0-33.0 MEAN CELL HGB CONCETRATION (test code=MCHC) 28.3 gram/dL 33.0-36.0 RED CELL DISTRIBUTION WIDTH (test code=RDW) 13.2 % 11.6-16.2 RED CELL DISTRIBUTION WIDTH SD (test code=RDW-SD) 39.2 fL 37.0-51.0 PLATELET COUNT (test code=PLT) 226 K/mm3 150-450 MEAN PLATELET VOLUME (test code=MPV) 10.9 fL 6.7-11.0 NEUTROPHIL % (test code=NT%) 47.7 % 39.0-69.0 IMMATURE GRANULOCYTE % (test code=IG%) 0.2 % 0.0-5.0 LYMPHOCYTE % (test code=LY%) 42.5 % 25.0-55.0 MONOCYTE % (test code=MO%) 7.3 % 0.0-10.0 EOSINOPHIL % (test code=EO%) 2.0 % 0.0-5.0 BASOPHIL % (test code=BA%) 0.3 % 0.0-1.0 NUCLEATED RBC % (test code=NRBC%) 0.0 % 0-0 NEUTROPHIL # (test code=NT#) 5.33 K/mm3 1.8-7.7 IMMATURE GRANULOCYTE # (test code=IG#) 0.02 x10 3/uL 0-0.03 LYMPHOCYTE # (test code=LY#) 4.74 K/mm3 1.0-5.0 MONOCYTE # (test code=MO#) 0.82 K/mm3 0-0.8 EOSINOPHIL # (test code=EO#) 0.22 K/mm3 0.0-0.5 BASOPHIL # (test code=BA#) 0.03 K/mm3 0.0-0.2 NUCLEATED RBC # (test code=NRBC#) 0.00 K/mm3 0.0-0.1 MANUAL DIFF REQUIRED (test code=MDIFF) NO, ONLY SCAN NEEDED DIFFERENTIAL [id number] 22:13:00* Test Item Value Reference Range Comments STAIN ACCEPTABILITY (test code=STN ACCEPTABLE) MORPHOLOGY COMMENT (test code=MOC) PLATELET ESTIMATE (test code=PLTEST) PLATELET MORPHOLOGY (test code=PLTMORPH) CBC W/AUTO [id number] 22:13:00* Test Item Value Reference Range Comments WHITE BLOOD CELL (test code=WBC) 11.2 K/mm3 4.5-12.5 RED BLOOD CELL (test code=RBC) 5.39 mill/mm3 4.0-5.8 HEMOGLOBIN (test code=HGB) 12.5 gram/dL 13.0-17.5 HEMATOCRIT (test code=HCT) 44.1 % 42.0-52.0 MEAN CELL VOLUME (test code=MCV) 81.8 fL 80-98 MEAN CELL HGB (test code=MCH) 23.2 picogram 27.0-33.0 MEAN CELL HGB CONCETRATION (test code=MCHC) 28.3 gram/dL 33.0-36.0 RED CELL DISTRIBUTION WIDTH (test code=RDW) 13.2 % 11.6-16.2 RED CELL DISTRIBUTION WIDTH SD (test code=RDW-SD) 39.2 fL 37.0-51.0 PLATELET COUNT (test code=PLT) 226 K/mm3 150-450 MEAN PLATELET VOLUME (test code=MPV) 10.9 fL 6.7-11.0 NEUTROPHIL % (test code=NT%) 47.7 % 39.0-69.0 IMMATURE GRANULOCYTE % (test code=IG%) 0.2 % 0.0-5.0 LYMPHOCYTE % (test code=LY%) 42.5 % 25.0-55.0 MONOCYTE % (test code=MO%) 7.3 % 0.0-10.0 EOSINOPHIL % (test code=EO%) 2.0 % 0.0-5.0 BASOPHIL % (test code=BA%) 0.3 % 0.0-1.0 NUCLEATED RBC % (test code=NRBC%) 0.0 % 0-0 NEUTROPHIL # (test code=NT#) 5.33 K/mm3 1.8-7.7 IMMATURE GRANULOCYTE # (test code=IG#) 0.02 x10 3/uL 0-0.03 LYMPHOCYTE # (test code=LY#) 4.74 K/mm3 1.0-5.0 MONOCYTE # (test code=MO#) 0.82 K/mm3 0-0.8 EOSINOPHIL # (test code=EO#) 0.22 K/mm3 0.0-0.5 BASOPHIL # (test code=BA#) 0.03 K/mm3 0.0-0.2 NUCLEATED RBC # (test code=NRBC#) 0.00 K/mm3 0.0-0.1 MANUAL DIFF REQUIRED (test code=MDIFF) NO, ONLY SCAN NEEDED DIFFERENTIAL [id number] 22:13:00* Test Item Value Reference Range Comments STAIN ACCEPTABILITY (test code=STN ACCEPTABLE) MORPHOLOGY COMMENT (test code=MOC) PLATELET ESTIMATE (test code=PLTEST) PLATELET MORPHOLOGY (test code=PLTMORPH) CBC W/AUTO [id number] 22:13:00* Test Item Value Reference Range Comments WHITE BLOOD CELL (test code=WBC) 11.2 K/mm3 4.5-12.5 RED BLOOD CELL (test code=RBC) 5.39 mill/mm3 4.0-5.8 HEMOGLOBIN (test code=HGB) 12.5 gram/dL 13.0-17.5 HEMATOCRIT (test code=HCT) 44.1 % 42.0-52.0 MEAN CELL VOLUME (test code=MCV) 81.8 fL 80-98 MEAN CELL HGB (test code=MCH) 23.2 picogram 27.0-33.0 MEAN CELL HGB CONCETRATION (test code=MCHC) 28.3 gram/dL 33.0-36.0 RED CELL DISTRIBUTION WIDTH (test code=RDW) 13.2 % 11.6-16.2 RED CELL DISTRIBUTION WIDTH SD (test code=RDW-SD) 39.2 fL 37.0-51.0 PLATELET COUNT (test code=PLT) 226 K/mm3 150-450 MEAN PLATELET VOLUME (test code=MPV) 10.9 fL 6.7-11.0 NEUTROPHIL % (test code=NT%) 47.7 % 39.0-69.0 IMMATURE GRANULOCYTE % (test code=IG%) 0.2 % 0.0-5.0 LYMPHOCYTE % (test code=LY%) 42.5 % 25.0-55.0 MONOCYTE % (test code=MO%) 7.3 % 0.0-10.0 EOSINOPHIL % (test code=EO%) 2.0 % 0.0-5.0 BASOPHIL % (test code=BA%) 0.3 % 0.0-1.0 NUCLEATED RBC % (test code=NRBC%) 0.0 % 0-0 NEUTROPHIL # (test code=NT#) 5.33 K/mm3 1.8-7.7 IMMATURE GRANULOCYTE # (test code=IG#) 0.02 x10 3/uL 0-0.03 LYMPHOCYTE # (test code=LY#) 4.74 K/mm3 1.0-5.0 MONOCYTE # (test code=MO#) 0.82 K/mm3 0-0.8 EOSINOPHIL # (test code=EO#) 0.22 K/mm3 0.0-0.5 BASOPHIL # (test code=BA#) 0.03 K/mm3 0.0-0.2 NUCLEATED RBC # (test code=NRBC#) 0.00 K/mm3 0.0-0.1 MANUAL DIFF REQUIRED (test code=MDIFF) NO, ONLY SCAN NEEDED DIFFERENTIAL [id number] 22:13:00* Test Item Value Reference Range Comments STAIN ACCEPTABILITY (test code=STN ACCEPTABLE) CABOT RINGS (test code=CAB) MORPHOLOGY COMMENT (test code=MOC) PLATELET ESTIMATE (test code=PLTEST) PLATELET MORPHOLOGY (test code=PLTMORPH)
[2019-09-03] MEDS ORDERED: CEFAZOLIN SOD 1 GM/NS 50ML 100 ML IV ONE (06:42)
[2019-09-03] MEDS ORDERED: SUGAMMADEX SODIUM 200 MG/2 ML VIAL IV ONE (07:24)
[2019-09-03] MEDS ORDERED: HEPARIN SOD/SOD CHLORIDE 1,000 ML ONE (07:41)
[2019-09-03] MEDS ORDERED: BUPIVACAINE HCL 0.5% INJ 30 ML VIAL INJ ONE (08:00)
[2019-09-03 08:28] LABS: HEMOGLOBIN 10.1 g/dL (14.0-18.0)
[2019-09-03] MEDS ORDERED: NALOXONE HCL INJ 0.4 MG/ML AMP IV PRN (13:00)
[2019-09-03] MEDS ORDERED: ONDANSETRON HCL INJ 2MG/ML 2ML 2 MG/ML VIAL IV PRN (13:00)
[2019-09-03] MEDS ORDERED: DIPHENHYDRAMINE HCL INJ 50 MG/ML VIAL IM PRN (13:00)
[2019-09-03] MEDS: SODIUM CHLORIDE 0.9% 250ML IRRIG IR SCH ×3 (13:00→21:39)
--- NOTE | 2019-09-03 13:46 | Diagnostic Imaging Report ---
EXAMINATION: CHEST SINGLE (PORTABLE) INDICATION: Postoperative COMPARISON: None FINDINGS: LINES/TUBES:Left chest port terminates in the superior vena cava. Enteric tube terminates in the stomach. Left chest tube. LUNGS:The lungs are moderately inflated. Bibasilar subsegmental atelectasis. PLEURA:No pleural effusion or pneumothorax. MEDIASTINUM:The cardiomediastinal silhouette appears normal in size and shape. BONES/SOFT TISSUES:No acute osseous injury. ABDOMEN:No free air under the diaphragm. IMPRESSION: No pneumothorax. Lines and tubes as above. Bibasilar subsegmental atelectasis. Signed by: Linette Edgar MD on 09/03/2019 1:44 PM
[2019-09-03] MEDS ORDERED: LIDOCAINE HCL 2% LOCAL INJ 5 ML SDV VIAL INJ ONE (13:54)
[2019-09-03] MEDS ORDERED: ACETAMINOPHEN 1000 MG/100 ML IV ONE (13:54)
[2019-09-03] MEDS ORDERED: LIDOCAINE HCL 2% JELLY 5 ML TUBE ONE (13:54)
[2019-09-03] MEDS ORDERED: ROCURONIUM BROMIDE 10 MG/ML 5ML VIAL ONE (13:54)
[2019-09-03] MEDS ORDERED: PROPOFOL IV EMULSION 10 MG/ML 20 ML VIAL ONE (13:54)
[2019-09-03] MEDS ORDERED: DEXAMETHASONE SOD PHOS INJ 4 MG/ML VIAL ONE (13:54)
[2019-09-03] MEDS ORDERED: SEVOFLURANE INHAL SOLN 250 ML PEN BTL ONE (13:54)
[2019-09-03] MEDS ORDERED: ONDANSETRON HCL INJ 2MG/ML 2ML 2 MG/ML VIAL ONE (13:54)
[2019-09-03] MEDS ORDERED: MORPHINE SULFATE 1 MG/ML 30ML PCA ONE ×3 (13:57→14:50)
[2019-09-03] MEDS ORDERED: FENTANYL CITRATE/PF 100MCG/2 ML INJ ONE ×2 (14:09→17:59)
[2019-09-03 14:55] LABS: BASOPHILS % 0.1 % (0.0-1.0); EOSINOPHILS % 0.1 % (0.0-6.0); HEMATOCRIT 38.7 % (38.2-49.6); HEMOGLOBIN 11.5 g/dL (14.0-18.0); LYMPHOCYTES # (AUTO) 1.8 (1.0-3.2); LYMPHOCYTES % 12.3 % (18.0-39.1); MEAN CORPUSCULAR HEMOGLOBIN 23.8 pg (28-32); MEAN CORPUSCULAR HGB CONC 29.7 g/dL (31-35); MEAN CORPUSCULAR VOLUME 80.1 fL (81-99); MONOCYTES % 6.5 % (4.4-11.3); NEUTROPHILS # (AUTO) 11.9 (2.1-6.9); NEUTROPHILS % 80.6 % (38.7-80.0); PLATELET COUNT 254 x10e3/uL (140-360); RED BLOOD COUNT 4.83 x10e6/uL (4.3-5.7); RED CELL DISTRIBUTION WIDTH 14.2 % (11.7-14.4)
[2019-09-03 15:12] LABS: ANION GAP 13.5 mmol/L (8-16); BLOOD UREA NITROGEN 10 mg/dL (7-26); BUN/CREATININE RATIO 8 (6-25); CALCIUM 8.4 mg/dL (8.4-10.2); CARBON DIOXIDE 22 mmol/L (22-29); CHLORIDE 105 mmol/L (98-107); CREATININE, SERUM 1.24 mg/dL (0.72-1.25); EST GLOMERULAR FILTRATION RATE > 60 ML/MIN (60-); GLUCOSE 188 mg/dL (74-118); POTASSIUM 4.5 mmol/L (3.5-5.1); SODIUM 136 mmol/L (136-145)
--- NOTE | 2019-09-03 16:18 | NUR ---
HEMATOLOGY/ONCOLOGY CONSULTATION REPORT: REASON FOR CONSULTATION: Clinic patient, testicular cancer with lymphadenopathy, s/p left retroperitoneal lymphadenectomy HISTORY OF PRESENT ILLNESS: Mr. Seymour is a pleasant 38 year old male with past medical history of diabetes mellitus, hypertension, GERD, and Stage IIB testicular cancer s/p left sided orchiectomy on EP regimen. Chemotherapy cycles have been interrupted due to persistent N/V and URI symptoms. Patient is s/p 4 cycles of Etopside and Cisplatin with last cycle complete on 06/04/2019. Patient had PETCT scan performed recently with comparison to PETCT scan in February 2019. There is concern for disease progression with HCG elevated at 68 and left para-aortic retroperitoneal lymph node at 1.5cm. He was referred to Dr. Marcus Jessica for surgical resection of the residual disease. Patient currently admitted under the care of Dr. Jessica status post lymphadenectomy. Hematology/Oncology has now been consulted to assist with management. Presently, patient is post op waiting for transfer from PACU to ICU for close monitoring. He is drowsy, however denies any new complaints at this time. Discussed with and nurse at bedside. REVIEW OF SYSTEMS: 14 point ROS negative unless otherwise stated in the HPI. ALLERGIES: NKDA PAST MEDICAL HISTORY: Diabetes mellitus, hypertension, GERD, testicular cancer PAST SURGICAL HISTORY: Bilateral knee surgery, cardiac catheterization, left sided orchiectomy, left sided retroperitoneal lymphadenectomy PAST FAMILY HISTORY: Mother with breast cancer SOCIAL HISTORY: Denies history of tobacco use, alcohol use, or illicit drug use PHYSICAL EXAMINATION: Vitals: Reviewed per electronic medical records General: NAD Skin: Warm, dry, intact HEENT: NC, AT; EOMI Neck: Supple Cardiovascular: Regular rate, regular rhythm Pulmonary: Decreased breath sounds bilaterally Abdomen: Soft, NTND, BS x 4 Musculoskeletal: Moves all Extremities: No cyanosis, no edema Neurologic: Awake, alert, drowsy postoperatively Psychiatric: Cooperative LABORATORY DATA: Reviewed per electronic medical record ASSESSMENT/PLAN: Mr. Seymour is a pleasant 38 year old male with past medical history of diabetes mellitus, hypertension, GERD, and Stage IIB testicular cancer s/p left sided orchiectomy on EP regimen. Chemotherapy cycles have been i nterrupted due to persistent N/V and URI symptoms. Patient is s/p 4 cycles of Etopside and Cisplatin with last cycle complete on 06/04/2019. Patient had PETCT scan performed recently with comparison to PETCT scan in February 2019. There is concern for disease progression with HCG elevated at 68 and left para-aortic retroperitoneal lymph node at 3.8cm. He was referred to Dr. Marcus Jessica for surgical resection of the residual disease. Patient currently admitted under the care of Dr. Jessica status post lymphadenectomy. Hematology/Oncology has now been consulted to assist with management. 1. Testicular Cancer: Stage IIB. (pT1b, pN2). S/p four cycles of EP regimen outpatient scheduled every 21 days initially. Patient second cycle interrupted d ue to son's graduation. Third cycle interrupted due to N/V for which he was dose reduced by 25%. Fourth cycle interrupted by URI and N/V eventually completed on 06/04. Patient had interval PETCT scan in February at [facility] [place] Most rece nt PETCT scan on 06/28/2019 revealed interval left para-aortic mass at 3.8 x 3.1 cm with SUV uptake of 6.6 compared to 02/26/2019 with left para-aortic lymph node at 1.5cm with SUV uptake of 1.5. No new focus of abnormal activity noted. AFP and LDH in normal range on outside labs. HCG elevated at 68 from 10. S/p left retroperitoneal lymphadenectomy of residual disease with Urology on board. Plan to follow up pathology report and repeat imaging to further assess chemotherapy regimen. 2. Anemia: Mild, monitor for now. 3. CKD: Managed per primary team. Etopside and Cisplatin dose reduced by 25% in outpatient setting. 4. DVT proph: SCDs for now. Above plan discussed with Dr. Peralta. Thank you for the consult. I will be available. Please call with questions.
[2019-09-03] MEDS: CEFAZOLIN SOD 1 GM/NS 50ML 50 ML IV SCH (16:58)
[2019-09-03] MEDS ORDERED: KETAMINE HCL INJ 50 MG/ML 10 ML VIAL ONE (17:59)
[2019-09-03] MEDS ORDERED: MIDAZOLAM HCL 2 MG/2 ML VIAL ONE (17:59)
--- NOTE | 2019-09-03 18:00 | NUR ---
Pt arrived from PACU at 1630. Dressing to L chest and abdomen CDI. L chest tube intact. Pt refusing to move in bed at this time due to pain. Pt instructed to use COSTUMED CHARACTER ENTERTAINER pump and splint abdomen. Pt taught on how to use IS. Will continue to monitor.
[2019-09-03] MEDS: ACETAMINOPHEN 1000 MG/100 ML IV PRN (18:04)
[2019-09-04] VITALS (26 sets, daily range): BP systolic 118–152; BP diastolic 77–100
[2019-09-04] MEDS: SODIUM CHLORIDE 0.9% 250ML IRRIG IR SCH ×6 (01:16→21:32)
[2019-09-04] MEDS: CEFAZOLIN SOD 1 GM/NS 50ML 50 ML IV SCH ×3 (01:16→16:41)
[2019-09-04] MEDS: MORPHINE SULFATE 1 MG/ML 30ML PCA IV PRN ×2 (03:55→16:30)
--- NOTE | 2019-09-04 04:00 | Operative Report ---
DATE OF PROCEDURE: 09/03/2019 SURGEON: Brett Jessica MD PREOPERATIVE DIAGNOSES: 1. History of left testicular cancer high-grade seminoma. 2. 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 POSTOPERATIVE DIAGNOSES: 1. History of left testicular cancer high-grade seminoma. 2. 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 OPERATIONS PERFORMED: 1. Thoracoabdominal exploration. 2. Thoracotomy. 3. Placement of left chest tube through a separate incision. 4. Retroperitoneal lymphadenectomy. PRACTICE BILLING ASSOCIATE: Dr. Marcus Jessica. ANESTHESIA: General. CLINICAL INDICATION NOTE: This is a 38-year-old patient who was found to have metastatic seminoma of the left testicle. The involvement was documented above the renal pedicle at the upper part of the abdomen and extending over the aorta. The patient was brought for exploration and lymphadenectomy. The potential benefit discussed with the patient as well as potential complication. He is aware of the final decision about the extent of surgery will be done according to the findings in the surgery. Potential need for bladder also discussed with the patient and he approved it. DESCRIPTION OF PROCEDURE AND FINDINGS: After the appropriate level of anesthesia, the patient was positioned with chest elevated 45 degrees and the pelvis , was prepped and draped in a sterile fashion. A long abdominal thoracic incision was made starting at the space between the 10th and 9th rib and advanced anteriorly to just below the umbilicus and extended down. Extraperitoneal dissection of the area was done. The Gerato's fascia was dissected laterally and then dissection was done the peritoneum from the retroperitoneal area. The aorta below the abdomen at the bifurcation was identified and a section of the lymphatic tissue medial and lateral to it was done. The spermatic vessel was also included and dissected up to the renal vein on the left side and it was double clipped and removed. The ureter was identified and not injured during the procedure. The renal pedicle was dissected. At that point, it was obvious that the mass is quite extensive. This extended to the both sides of the large vessels including all the space up to the diaphragm and the pushes the vascularity of the spleen and it seems to be invading into the pancreas. The abdomen at that point was blood opened and visible extensive tumour mass was identified and seems to be and relatively fixed to the large vessels. Due to the extensive involvement of the mass did any excision would require extensive probably not adequate removal. General surgeon was called in for additional consultation during the operating procedure and he assessed the situation with us and his conclusion was identical to our that the extensive surgery would be fruitless and therefore it is electing not to continue with it. At this point, a short incision of the upper two ribs about the original incision was made and a 24 chest tube was introduced and advanced up the posteriorly. It was secured with two nylon sutures. One of them was set for future closure when the chest tube is removed. A 19 Gautam drain was inserted through a separate stab incision at the lower part of the incision and advanced and placed into the retroperitoneum. Of note, there was significant adhesions that could have been secondary to the chemotherapy the patient was on. The wound was then closed in layers. #1 PDS was used and interrupted sutures were utilized. Subcutaneous tissue was also reapproximated and the skin was closed using skin clips. The patient tolerated the procedure well. Estimated blood loss was about 300 mL and was transferred in satisfactory condition to recovery room and will be sent to the ICU following surgery. MD JEANNIE Solomon/JESSIE /[id number]
[2019-09-04] MEDS: D5.45%NS/KCL 20MEQ 1,000 ML IV SCH ×2 (04:53→09:04)
[2019-09-04 05:41] LABS: BASOPHILS % 0.1 % (0.0-1.0); EOSINOPHILS % 0.1 % (0.0-6.0); HEMATOCRIT 37.3 % (38.2-49.6); HEMOGLOBIN 11.1 g/dL (14.0-18.0); LYMPHOCYTES # (AUTO) 2.1 (1.0-3.2); LYMPHOCYTES % 14.9 % (18.0-39.1); MEAN CORPUSCULAR HEMOGLOBIN 23.6 pg (28-32); MEAN CORPUSCULAR HGB CONC 29.8 g/dL (31-35); MEAN CORPUSCULAR VOLUME 79.2 fL (81-99); MONOCYTES # (AUTO) 1.5 (0.2-0.8); MONOCYTES % 10.5 % (4.4-11.3); NEUTROPHILS # (AUTO) 10.3 (2.1-6.9); PLATELET COUNT 245 x10e3/uL (140-360); RED BLOOD COUNT 4.71 x10e6/uL (4.3-5.7); RED CELL DISTRIBUTION WIDTH 14.2 % (11.7-14.4)
[2019-09-04 05:59] LABS: BLOOD UREA NITROGEN 9 mg/dL (7-26); BUN/CREATININE RATIO 7 (6-25); CALCIUM 8.5 mg/dL (8.4-10.2); CARBON DIOXIDE 23 mmol/L (22-29); CHLORIDE 102 mmol/L (98-107); CREATININE, SERUM 1.23 mg/dL (0.72-1.25); EST GLOMERULAR FILTRATION RATE > 60 ML/MIN (60-); GLUCOSE 166 mg/dL (74-118); SODIUM 132 mmol/L (136-145)
--- NOTE | 2019-09-04 06:27 | Diagnostic Imaging Report ---
EXAMINATION: CHEST SINGLE (PORTABLE) COMPARISON: Chest x-ray 09/03/2019 INDICATION: ^DAILY WHILE CHEST TUBE IN PLACE ^[id number] ^0530 ^DAILY WHILE CHEST TUBE IN PLACE DISCUSSION: Frontal view of the chest obtained at 0549 hours. HEART AND MEDIASTINUM: Stable cardiomegaly LINES: MediPort catheter terminates in the SVC. Enteric tube extends past the diaphragm left chest tube is stable in position. LUNGS: Low lung volumes and bibasilar atelectasis. No interstitial edema or vascular congestion. PLEURA: No large effusions. No pneumothorax. BONES AND SOFT TISSUES: No focal osseous lesion. The soft tissues are normal. IMPRESSION: Bibasilar atelectasis. No pneumothorax. Stable support devices. Signed by: Dr. Merrill Salgado MD on 09/04/2019 6:25 AM
[2019-09-04] MEDS: ACETAMINOPHEN 1000 MG/100 ML IV PRN ×3 (06:32→21:43)
[2019-09-04] MEDS ORDERED: METOPROLOL TARTRATE INJ 1 MG/ML VIAL IV PRN (09:15)
[2019-09-04] MEDS ORDERED: DEXTROSE 50% SYRINGE 50 ML IV PRN (09:15)
[2019-09-04] MEDS: INSULIN LISPRO 100 UNIT/1 ML 3ML VIAL SQ SCH ×2 (11:55→17:06)
--- NOTE | 2019-09-04 11:58 | NUR ---
page sent to Dr. Jeovany Jessica in regards to downgrade status.
--- NOTE | 2019-09-04 14:16 | NUR ---
Nutrition Intervention Note RD Recommendation(s) for Physician: - When feasible ADAT to 1999 ADA diet Plan of Care: RD following, monitoring for tolerance and adequacy Nutrition reason for involvement: Nutrition Risk Trigger- [facility] RD Assessment 09/04: 38 YOM admitted for metastatic testicular cancer, seen today per [facility] screen. Per MD notes pt finished his fourth round of chemotherapy in May 2019. Per RN during rounds, pt open and closed yesterday in surgery due to progression of disease. 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 Pt denies any N/V/C/D currently or INTERNET APPLICATION DEVELOPER. Pt reports UBW of 285# and denies wt loss. Pt continues with post-op NGT in place, very little output noted. Per RN plan to remove tube later today. Pt with no questions or concerns at time of visit. Will continue to monitor. Principal Problems/Diagnoses: metastatic testicular cancer PMH: DM, HTN, GERD, testicular cancer GI: WDL, no BM recorded. NGT to LIWS- very little clear output Skin: chest tube site Labs: 09/04: Na 132, Gluc 166 Meds: KCl IVPB, morphine, insulin, protonix, zofran IVF: NS at 30 ml/hr Ht: 73 in Wt: 295 lb BMI: 38.9 kg/m2 IBW: 184 lb Malnutrition Evaluation (09/04/19) The patient does not meet criteria for a specified degree of malnutrition at this time. Will re-evaluate at follow-up as appropriate. Nutrition Prescription (Diet Order): NPO Estimated Nutritional Needs: 7017-5200 calories/day (22-25 kcal/kg IBW) 125-167 g protein/day (1.5-2 g pro/kg IBW) Diet Adequacy: Not meeting calorie needs, Not meeting protein needs Diet Tolerance: NPO Diet Education Needs Assessment: Diet education not indicated, patient on temporary/transition diet. Nutrition Care Level: Low Nutrition Diagnosis: Inadequate energy and protein intake related to post-operative NGT to LIWS and currently NPO. Goal: Patient will meet 75-100% of estimated needs by follow up Progress: N/A Interventions: - CHO modified diet, Prescription medications, Recommended Modifications, Skill Development, Collaboration with other providers Monitoring/Evaluation: - Total energy intake, Total protein intake, Prescription medication, Modified diet Signed: Shey Frederick RD, LD, [facility]
--- NOTE | 2019-09-04 16:43 | Consultation ---
DATE OF CONSULTATION: 09/04/2019 Pulmonary Consultation The patient of Dr. Jessica, Dr. Wyatt, Dr. Flores. HISTORY OF PRESENT ILLNESS: Unfortunate 38-year-old gentleman with history of high-grade seminoma with retroperitoneal metastasis involving the renal pedicle, which was diagnosed in September of 2018 as a stage IIB. Apparently he can tolerate chemotherapy poorly. He has a history of obstructive sleep apnea diagnosed in 2015. History of diabetes in 2018, history of hypertension. ALLERGIES: HE HAS NO KNOWN ALLERGIES. FAMILY HISTORY: Positive for breast cancer in mother and a pancreatic cancer in her brother. HOME MEDICATIONS: Have included Tylenol, amlodipine, Coreg, Neurontin, Vicodin, insulin, metformin, and Protonix. He has had courses of chemotherapy. PAST SURGICAL HISTORY: He has had left orchiectomy and left retroperitoneal lymph node dissection, been on etoposide and cisplatin. His HCG level was elevated and had left periaortic retroperitoneal lymphadenopathy. Salvage surgery was requested by the oncologist. Unfortunately, the tumor was unresectable with extensive tumor mass involving the pancreas and the superior mesenteric artery. SOCIAL HISTORY: The patient smoked rarely. Does not drink, works as a septic pump truck driver. Born in [facility]. PHYSICAL EXAMINATION: GENERAL: He is a burly black male. No acute distress seen postoperatively using nasal oxygen. NG tube is in place. LUNGS: Diminished breath sounds, but clear. Port-A-Cath noted in the left chest wall. HEART: Regular rhythm. ABDOMEN: Moderately obese. Large incisional wound in abdomen. EXTREMITIES: Nonedematous. IMPRESSION: Unresectable cancer. The patient is seen postoperatively likely will require further chemotherapy. PLAN: Incentive spirometry, mobilization, DC chest tube in a.m. if scant drainage, no pneumothorax. Thank you for this kind referral. Johann Salazar MD DS/MODL /[id number]
--- NOTE | 2019-09-04 18:00 | NUR ---
Dr. Marcus Jessica informed of increased pain, gave orders for IV Tylenol for an additional 24 hrs. Pt encouraged to move in bed and use IS, however pt is resistant due to pain. PT wilneral ordered. Pt worked with physical therapy, chest tube drained 150 ml when ambulating with PT. Per Dr. Salazar clamp chest tube at 0300 on 09/05/19. Will continue to monitor the patient.
[2019-09-04] MEDS ORDERED: ACETAMINOPHEN 1000 MG/100 ML IV STA (18:23)
[2019-09-05] VITALS (25 sets, daily range): BP systolic 129–165; BP diastolic 85–108
[2019-09-05] MEDS: CEFAZOLIN SOD 1 GM/NS 50ML 50 ML IV SCH ×3 (00:57→17:19)
[2019-09-05] MEDS: SODIUM CHLORIDE 0.9% 250ML IRRIG IR SCH ×6 (00:57→21:00)
--- NOTE | 2019-09-05 03:35 | NUR ---
chest tube clamped at this time
[2019-09-05] MEDS: D5.45%NS/KCL 20MEQ 1,000 ML IV SCH ×3 (04:26→20:00)
[2019-09-05 05:12] LABS: BASOPHILS % 0.2 % (0.0-1.0); EOSINOPHILS % 0.1 % (0.0-6.0); HEMATOCRIT 34.6 % (38.2-49.6); HEMOGLOBIN 10.5 g/dL (14.0-18.0); LYMPHOCYTES # (AUTO) 2.3 (1.0-3.2); LYMPHOCYTES % 14.6 % (18.0-39.1); MEAN CORPUSCULAR HEMOGLOBIN 23.9 pg (28-32); MEAN CORPUSCULAR HGB CONC 30.3 g/dL (31-35); MEAN CORPUSCULAR VOLUME 78.6 fL (81-99); MONOCYTES # (AUTO) 1.8 (0.2-0.8); MONOCYTES % 11.2 % (4.4-11.3); NEUTROPHILS # (AUTO) 11.6 (2.1-6.9); PLATELET COUNT 190 x10e3/uL (140-360); RED CELL DISTRIBUTION WIDTH 14.1 % (11.7-14.4)
[2019-09-05 05:36] LABS: BLOOD UREA NITROGEN 7 mg/dL (7-26); BUN/CREATININE RATIO 6 (6-25); CALCIUM 8.7 mg/dL (8.4-10.2); CARBON DIOXIDE 21 mmol/L (22-29); CHLORIDE 102 mmol/L (98-107); CREATININE, SERUM 1.27 mg/dL (0.72-1.25); EST GLOMERULAR FILTRATION RATE > 60 ML/MIN (60-); GLUCOSE 141 mg/dL (74-118); SODIUM 131 mmol/L (136-145)
[2019-09-05] MEDS: INSULIN LISPRO 100 UNIT/1 ML 3ML VIAL SQ SCH ×4 (05:46→17:21)
[2019-09-05] MEDS: MORPHINE SULFATE 1 MG/ML 30ML PCA IV PRN ×2 (05:55→19:08)
[2019-09-05 06:59] LABS: MAGNESIUM 1.6 MG/DL (1.3-2.1)
--- NOTE | 2019-09-05 07:08 | Diagnostic Imaging Report ---
EXAMINATION: CHEST SINGLE (PORTABLE) COMPARISON: Chest x-ray 09/04/2019 INDICATION: ^DAILY WHILE CHEST TUBE IN PLACE ^[id number] ^0530 ^DAILY WHILE CHEST TUBE IN PLACE DISCUSSION: Frontal view of the chest obtained at 0605 hours. HEART AND MEDIASTINUM: Stable cardiomegaly LINES: MediPort catheter remains in the SVC. Enteric tube extends past the diaphragm. Left chest tube is stable in position. LUNGS: Low lung lines and bibasilar atelectasis, left greater than right. No interstitial edema PLEURA: No pleural effusion or pneumothorax. BONES AND SOFT TISSUES: No focal osseous lesion. The soft tissues are normal. IMPRESSION: No pneumothorax. Support devices as described above. Bibasilar atelectasis. Signed by: Dr. Merrill Salgado MD on 09/05/2019 7:06 AM
[2019-09-05] MEDS: PANTOPRAZOLE 40 MG 10ML VIAL IV SCH (08:26)
[2019-09-05] MEDS: ACETAMINOPHEN 1000 MG/100 ML IV PRN ×2 (09:07→16:48)
--- NOTE | 2019-09-05 09:49 | Diagnostic Imaging Report ---
EXAM: CHEST SINGLE (PORTABLE) DATE: 09/05/2019 9:08 AM INDICATION: Post chest tube removal COMPARISON: Earlier 09/05/2019 FINDINGS: Left-sided chest port identified in stable position. Enteric tube noted coursing below the diaphragm. Previously visualized left-sided chest tube is no longer present. There is no evidence for pneumothorax status post chest tube removal. Lung volumes remain low. There is bibasilar atelectasis, left greater than right. There is no evidence for new large focal consolidation. The cardiomediastinal silhouette is stable in appearance. No acute osseous abnormality is identified. IMPRESSION: No evidence for pneumothorax status post left chest tube removal. Signed by: Dr. Quincy Ross MD on 09/05/2019 9:46 AM
--- NOTE | 2019-09-05 15:08 | NUR ---
HEMATOLOGY/ONCOLOGY PROGRESS NOTE: REASON FOR CONSULTATION: Clinic patient, testicular cancer with lymphadenopathy, s/p left retroperitoneal lymphadenectomy HISTORY OF PRESENT ILLNESS: Resting comfortably with NGT in place, chest tube removed. Discussed with at bedside. PHYSICAL EXAMINATION: Vitals: Reviewed per electronic medical records General: NAD Skin: Warm, dry, intact HEENT: NC, AT; EOMI; NGT in place Neck: Supple Cardiovascular: Regular rate, regular rhythm Pulmonary: Decreased breath sounds bilaterally, chest tube removed Abdomen: Soft, distended, nontender, BS x 4 Genitourinary: Echavarria in place, clear Musculoskeletal: Moves all Extremities: No cyanosis, no edema Neurologic: Awake, alert, sleepy Psychiatric: Cooperative LABORATORY DATA: Reviewed per electronic medical record ASSESSMENT/PLAN: Mr. Seymour is a pleasant 38 year old male with past medical history of diabetes mellitus, hypertension, GERD, and Stage IIB testicular cancer s/p left sided orchiectomy on EP regimen. Chemotherapy cycles have been i nterrupted due to persistent N/V and URI symptoms. Patient is s/p 4 cycles of Etopside and Cisplatin with last cycle complete on 06/04/2019. Patient had PETCT scan performed recently with comparison to PETCT scan in February 2019. There is concern for disease progression with HCG elevated at 68 and left para-aortic retroperitoneal lymph node at 3.8cm. He was referred to Dr. Marcus Jessica for surgical resection of the residual disease. Patient currently admitted under the care of Dr. Jessica status post lymphadenectomy. Hematology/Oncology has now been consulted to assist with management. 1. Testicular Cancer: Stage IIB. (pT1b, pN2). S/p four cycles of EP regimen outpatient scheduled every 21 days initially. Patient second cycle interrupted d ue to son's graduation. Third cycle interrupted due to N/V for which he was dose reduced by 25%. Fourth cycle interrupted by URI and N/V eventually completed on 06/04. Patient had interval PETCT scan in February at [facility] [place]. Most rece nt PETCT scan on 06/28/2019 revealed interval left para-aortic mass at 3.8 x 3.1cm with SUV uptake of 6.6 compared to 02/26/2019 with left para-aortic lymph node at 1.5cm with SUV uptake of 1.5. No new focus of abnormal activity noted. AFP and LDH in normal range on outside labs. HCG elevated at 68 from 10. S/p planned left lymphadenectomy, however, "extensive mass was identified extending to both sides of the large vessels including all the space up to diaphragm and pushes vascularity of the spleen and seemed to be invading the pancreas" based on operative report. Excision was no performed for this reason, no biopsy taken as well. Patient will need second line chemotherapy which we have discussed with patient/. 2. Anemia: H/H remains stable. Continue to monitor. 3. CKD: Etopside and Cisplatin dose reduced by 25% in outpatient setting. Creatinine 1.27 today, slightly up. Managed per primary. 4. Constipation: No BM postoperatively yet. NGT in place. NPO. Encourage ambulation. Consider bowel regimen if no BM. 5. DVT proph: SCDs for now. Consider starting chemical AC for DVT proph s/p chest tube removal. Above plan discussed with Dr. Peralta. Thank you for the consult. I will be available. Please call with questions.
[2019-09-06] VITALS (18 sets, daily range): BP systolic 113–161; BP diastolic 70–110
[2019-09-06] MEDS: SODIUM CHLORIDE 0.9% 250ML IRRIG IR SCH ×5 (00:15→16:45)
--- NOTE | 2019-09-06 00:16 | NUR ---
PATIENT AMBULATED TO TOILET WITH ROLLING WALKER, MIN ASSIST FOR SIT TO STAND AND CGA FOR AMBULATION.
[2019-09-06] MEDS: CEFAZOLIN SOD 1 GM/NS 50ML 50 ML IV SCH ×3 (00:42→17:22)
[2019-09-06] MEDS: D5.45%NS/KCL 20MEQ 1,000 ML IV SCH ×2 (04:53→05:00)
[2019-09-06 05:11] LABS: BASOPHILS % 0.1 % (0.0-1.0); EOSINOPHILS % 0.1 % (0.0-6.0); HEMATOCRIT 32.3 % (38.2-49.6); HEMOGLOBIN 9.8 g/dL (14.0-18.0); LYMPHOCYTES # (AUTO) 2.6 (1.0-3.2); LYMPHOCYTES % 16.9 % (18.0-39.1); MEAN CORPUSCULAR HEMOGLOBIN 23.6 pg (28-32); MEAN CORPUSCULAR HGB CONC 30.3 g/dL (31-35); MEAN CORPUSCULAR VOLUME 77.8 fL (81-99); MONOCYTES # (AUTO) 1.8 (0.2-0.8); MONOCYTES % 11.7 % (4.4-11.3); NEUTROPHILS # (AUTO) 10.9 (2.1-6.9); NEUTROPHILS % 70.7 % (38.7-80.0); PLATELET COUNT 188 x10e3/uL (140-360); RED BLOOD COUNT 4.15 x10e6/uL (4.3-5.7)
[2019-09-06 05:29] LABS: ANION GAP 11.8 mmol/L (8-16); BLOOD UREA NITROGEN 7 mg/dL (7-26); BUN/CREATININE RATIO 6 (6-25); CALCIUM 8.8 mg/dL (8.4-10.2); CARBON DIOXIDE 23 mmol/L (22-29); CHLORIDE 100 mmol/L (98-107); CREATININE, SERUM 1.27 mg/dL (0.72-1.25); EST GLOMERULAR FILTRATION RATE > 60 ML/MIN (60-); GLUCOSE 150 mg/dL (74-118); POTASSIUM 3.8 mmol/L (3.5-5.1); SODIUM 131 mmol/L (136-145)
[2019-09-06] MEDS: INSULIN LISPRO 100 UNIT/1 ML 3ML VIAL SQ SCH ×4 (05:38→18:00)
[2019-09-06] MEDS: MORPHINE SULFATE 1 MG/ML 30ML PCA IV PRN ×2 (06:51→17:27)
--- NOTE | 2019-09-06 08:04 | Diagnostic Imaging Report ---
Examination: Single AP view of the chest. COMPARISON: Portable chest 09/05/2019 INDICATION: Left chest tube removal IMPRESSION: 1. Lines and Tubes: Left-sided chest port and enteric tubes are unchanged. 2. Low lung volumes. Persistent left retrocardiac opacity and obscuration of the left hemidiaphragm, likely reflecting left effusion and atelectasis or pneumonia. Minimal atelectatic changes in the right lower lobe. 3. Cardiomediastinal silhouette is normal. Central pulmonary venous congestion. 4. No acute bony abnormalities. Signed by: Dr. Jim Patrick M.D. on 09/06/2019 8:01 AM
[2019-09-06] MEDS: PANTOPRAZOLE 40 MG 10ML VIAL IV SCH (09:53)
[2019-09-06] MEDS ORDERED: POTASSIUM CHLORIDE 20MEQ/100ML 200 ML IV ONE (10:15)
[2019-09-06] MEDS: SODIUM CHLORIDE 0.9% 1000ML 1,000 ML IV SCH (11:11)
[2019-09-06 15:06] LABS: % IRON SATURATION 4 % (15-50); IRON 9 ug/dL (65-175); TOTAL IRON BINDING CAPACITY 211 ug/dL (261-478); TRANSFERRIN 151 mg/dL (174-364)
--- NOTE | 2019-09-06 15:29 | NUR ---
HEMATOLOGY/ONCOLOGY PROGRESS NOTE: REASON FOR CONSULTATION: Clinic patient, testicular cancer with lymphadenopathy, s/p left retroperitoneal lymphadenectomy HISTORY OF PRESENT ILLNESS: Resting comfortably with family at bedside. NGT and hensley out, had BM last night. Possible transfer out of ICU soon... PHYSICAL EXAMINATION: Vitals: Reviewed per electronic medical records General: NAD Skin: Warm, dry, intact HEENT: NC, AT; EOMI; NGT in place Neck: Supple Cardiovascular: Regular rate, regular rhythm Pulmonary: Decreased breath sounds bilaterally Abdomen: Soft, distended, nontender, BS x 4 Genitourinary: Hensley in place, clear Musculoskeletal: Moves all Extremities: No cyanosis, no edema Neurologic: Awake, alert, sleepy Psychiatric: Cooperative LABORATORY DATA: Reviewed per electronic medical record ASSESSMENT/PLAN: Mr. Seymour is a pleasant 38 year old male with past medical history of diabetes mellitus, hypertension, GERD, and Stage IIB testicular cancer s/p left sided orchiectomy on EP regimen. Chemotherapy cycles have been i nterrupted due to persistent N/V and URI symptoms. Patient is s/p 4 cycles of Etopside and Cisplatin with last cycle complete on 06/04/2019. Patient had PETCT scan performed recently with comparison to PETCT scan in February 2019. There is concern for disease progression with HCG elevated at 68 and left para-aortic retroperitoneal lymph node at 3.8cm. He was referred to Dr. Marcus Jessica for surgical resection of the residual disease. Patient currently admitted under the care of Dr. Jessica status post lymphadenectomy. Hematology/Oncology has now been consulted to assist with management. 1. Testicular Cancer: Stage IIB. (pT1b, pN2). S/p four cycles of EP regimen outpatient scheduled every 21 days initially. Patient second cycle interrupted d ue to son's graduation. Third cycle interrupted due to N/V for which he was dose reduced by 25%. Fourth cycle interrupted by URI and N/V eventually completed on 06/04. [place] [facility] [place] Most rece nt PETCT scan on 06/28/2019 revealed interval left para-aortic mass at 3.8 x 3.1cm with SUV uptake of 6.6 compared to 02/26/2019 with left para-aortic lymph node at 1.5cm with SUV uptake of 1.5. No new focus of abnormal activity noted. AFP and LDH in normal range on outside labs. HCG elevated at 68 from 10. S/p planned left lymphadenectomy, however, "extensive mass was identified extending to both sides of the large vessels including all the space up to diaphragm and pushes vascularity of the spleen and seemed to be invading the pancreas" based on operative report. Excision was no performed for this reason, no biopsy taken as well. Patient will need second line chemotherapy which we have discussed with patient/. 2. Anemia: Microcytic, hypochromic. H/H slowly trending down. Appears AOCD + severe MIHAI, pending ferritin level. Plan to give dose of IV iron and monitor. May benefit from Procrit for H/H less than 10/30, respectively. Continue to monitor. 3. CKD: Etopside and Cisplatin dose reduced by 25% in outpatient setting. Creatinine 1.27, stable. Managed per primary. 4. Constipation: Patient had BM last night. NGT out. Monitor. 5. DVT proph: Start Lovenox 40mg sq daily. Above plan discussed with Dr. Peralta. Thank you for the consult. I will be available. Please call with questions.
--- NOTE | 2019-09-06 16:19 | NUR ---
Patient received from ICU, Echavarria was removed today at 1400 per transfer RN and that patient voided prior to transfer, IV in place to right FA, on continuous morphine IV, no NG tube, call light within reach, will monitor.
[2019-09-06] MEDS: ENOXAPARIN SOD INJ 40 MG/0.4 ML SYR SC SCH (17:22)
[2019-09-06] MEDS ORDERED: SODIUM FERRIC GLUCONATE COMPLX 125 MG in SODIUM CHLORIDE 0.9% 100 ML 100 ML IV ONE (18:00)
--- NOTE | 2019-09-06 18:19 | NUR ---
Notified MENA Adame of ferratin level and to go ahead and administer ferric gluconate
--- NOTE | 2019-09-06 19:12 | NUR ---
WALKING ROUNDS PERFORMED, RECEIVED PT LAYING SEMI FOWLERS IN BED, AAOX3, RR EVEN AND NON-LABORED, ON ROOM AIR. PT REPORTS PAIN TO ANTERIOR ABD. DRESSING CDI. PT HAS BOOM MASTER PUMP FOR PAIN MANAGEMENT, BOOM MASTER BUTTON WITHIN REACH. LEFT PT LAYING SEMI FOWLERS IN BED, BED IN LOW LOCKED POSITION, SIDE RAILS UPX2, CALL LIGHT AND PHONE WITHIN REACH.
[2019-09-07] VITALS (8 sets, daily range): BP systolic 120–142; BP diastolic 70–91
[2019-09-07] MEDS: CEFAZOLIN SOD 1 GM/NS 50ML 50 ML IV SCH ×3 (01:16→16:18)
[2019-09-07] MEDS: SODIUM CHLORIDE 0.9% 1000ML 1,000 ML IV SCH ×2 (01:50→06:15)
[2019-09-07] MEDS: MORPHINE SULFATE 1 MG/ML 30ML PCA IV PRN (03:00)
[2019-09-07] MEDS: INSULIN LISPRO 100 UNIT/1 ML 3ML VIAL SQ SCH ×5 (06:00→21:00)
--- NOTE | 2019-09-07 06:12 | Diagnostic Imaging Report ---
EXAMINATION: CHEST SINGLE (PORTABLE) COMPARISON: Chest x-ray 09/06/2019 INDICATION: ^DAILY WHILE CHEST TUBE IN PLACE ^[id number] ^[id number] ^DAILY WHILE CHEST TUBE IN PLACE DISCUSSION: Frontal view of the chest obtained at 0536 hours. HEART AND MEDIASTINUM: Stable cardiomegaly LINES: MediPort catheter terminates in the SVC. Enteric tube has been removed. No evidence of chest tube. LUNGS: Low lung volumes and bibasilar atelectasis, left greater than right. PLEURA: No large effusions. No pneumothorax. BONES AND SOFT TISSUES: No focal osseous lesion. The soft tissues are normal. IMPRESSION: Bibasilar atelectasis. No evidence of chest tube or pneumothorax. Signed by: Dr. Merrill Salgado MD on 09/07/2019 6:10 AM
[2019-09-07 06:18] LABS: BASOPHILS % 0.2 % (0.0-1.0); EOSINOPHILS # (AUTO) 0.1 (0.0-0.4); HEMATOCRIT 31.2 % (38.2-49.6); HEMOGLOBIN 9.5 g/dL (14.0-18.0); LYMPHOCYTES # (AUTO) 2.3 (1.0-3.2); LYMPHOCYTES % 19.6 % (18.0-39.1); MEAN CORPUSCULAR HEMOGLOBIN 23.8 pg (28-32); MEAN CORPUSCULAR HGB CONC 30.4 g/dL (31-35); MEAN CORPUSCULAR VOLUME 78.2 fL (81-99); MONOCYTES # (AUTO) 1.2 (0.2-0.8); MONOCYTES % 10.2 % (4.4-11.3); NEUTROPHILS % 68.7 % (38.7-80.0); PLATELET COUNT 199 x10e3/uL (140-360); RED BLOOD COUNT 3.99 x10e6/uL (4.3-5.7); RED CELL DISTRIBUTION WIDTH 14.3 % (11.7-14.4)
[2019-09-07 06:36] LABS: ANION GAP 12.8 mmol/L (8-16); BLOOD UREA NITROGEN 10 mg/dL (7-26); BUN/CREATININE RATIO 8 (6-25); CALCIUM 9.3 mg/dL (8.4-10.2); CARBON DIOXIDE 24 mmol/L (22-29); CHLORIDE 99 mmol/L (98-107); CREATININE, SERUM 1.26 mg/dL (0.72-1.25); EST GLOMERULAR FILTRATION RATE > 60 ML/MIN (60-); GLUCOSE 123 mg/dL (74-118); POTASSIUM 3.8 mmol/L (3.5-5.1); SODIUM 132 mmol/L (136-145)
--- NOTE | 2019-09-07 07:09 | NUR ---
report given to the oncoming nurse. MANNIE drain emptied with output of 10ml. Pt in stable condition, a & o x 3. Call elliott within reach. Pt educated to call the nurse if needs to get up. side rails up x 2.
--- NOTE | 2019-09-07 07:35 | NUR ---
Patient a/ox3, no resp distress, uses CPAP at HS, IV fluids in place, pains well managed, IMPREGNATING MACHINE OPERATOR pump in place with morphine, call light within reach,
[2019-09-07] MEDS: PANTOPRAZOLE 40 MG 10ML VIAL IV SCH (08:23)
[2019-09-07] MEDS ORDERED: ONDANSETRON HCL INJ 2MG/ML 2ML 2 MG/ML VIAL IV PRN (08:45)
[2019-09-07] MEDS ORDERED: ONDANSETRON HCL 4 MG ORAL DISINTEGRATING TAB PO PRN (08:45)
[2019-09-07] MEDS ORDERED: DIPHENHYDRAMINE HCL 25 MG CAP PO PRN (08:45)
[2019-09-07] MEDS: HYDROCODONE/APAP 10MG-325MG TAB PO PRN ×2 (10:57→16:43)
--- NOTE | 2019-09-07 10:58 | NUR ---
Patient OOB and ambulated in the room, sitting up on chair in room at this time, will monitor.
[2019-09-07] MEDS: MORPHINE SULFATE INJ 4 MG/ML INJ 1ML IV PRN ×2 (13:00→22:20)
--- NOTE | 2019-09-07 15:37 | NUR ---
Rounds by Dr. Jeovany Jessica, removed dressing to surgical site, removed MANNIE drain and dressing to MANNIE site. He cleared patient from his standpoint for discharge tomorrow and patient agrees. [place] in place, patient to f/u with him in the office.
[2019-09-07] MEDS: ENOXAPARIN SOD INJ 40 MG/0.4 ML SYR SC SCH (16:18)
--- NOTE | 2019-09-07 16:19 | NUR ---
HEMATOLOGY/ONCOLOGY PROGRESS NOTE: REASON FOR CONSULTATION: Clinic patient, testicular cancer with lymphadenopathy, s/p left retroperitoneal lymphadenectomy HISTORY OF PRESENT ILLNESS: Out of ICU, doing well, no new complaints, likely dc tomorrow to home PHYSICAL EXAMINATION: Vitals: Reviewed per electronic medical records General: NAD Skin: Warm, dry, intact HEENT: NC, AT; EOMI; NGT in place Neck: Supple Cardiovascular: Regular rate, regular rhythm Pulmonary: Decreased breath sounds bilaterally Abdomen: Soft, distended, nontender, BS x 4, abd bandages removed; healing wounds/sutures Genitourinary: [place] in place, clear Musculoskeletal: Moves all Extremities: No cyanosis, no edema Neurologic: Awake, alert, sleepy Psychiatric: Cooperative LABORATORY DATA: Reviewed per electronic medical record ASSESSMENT/PLAN: Mr. Seymour is a pleasant 38 year old male with past medical history of diabetes mellitus, hypertension, GERD, and Stage IIB testicular cancer s/p left sided orchiectomy on EP regimen. Chemotherapy cycles have been i nterrupted due to persistent N/V and URI symptoms. Patient is s/p 4 cycles of Etopside and Cisplatin with last cycle complete on 06/04/2019. Patient had PETCT scan performed recently with comparison to PETCT scan in February 2019. There is concern for disease progression with HCG elevated at 68 and left para-aortic retroperitoneal lymph node at 3.8cm. He was referred to Dr. Marcus Jessica for surgical resection of the residual disease. Patient currently admitted under the care of Dr. Jessica status post lymphadenectomy. Hematology/Oncology has now been consulted to assist with management. 1. Testicular Cancer: Stage IIB. (pT1b, pN2). S/p four cycles of EP regimen outpatient scheduled every 21 days initially. Patient second cycle interrupted d ue to son's graduation. Third cycle interrupted due to N/V for which he was dose reduced by 25%. Fourth cycle interrupted by URI and N/V eventually completed on 06/04. Patient had interval PETCT scan in February at [facility] [place]. Most rece nt PETCT scan on 06/28/2019 revealed interval left para-aortic mass at 3.8 x 3.1cm with SUV uptake of 6.6 compared to 02/26/2019 with left para-aortic lymph node at 1.5cm with SUV uptake of 1.5. No new focus of abnormal activity noted. AFP and LDH in normal range on outside labs. HCG elevated at 68 from 10. S/p planned left lymphadenectomy, however, "extensive mass was identified extending to both sides of the large vessels including all the space up to diaphragm and pushes vascularity of the spleen and seemed to be invading the pancreas" based on operative report. Excision was no performed for this reason, no biopsy taken as well. Patient will need second line chemotherapy which we have discussed with patient/. 2. Anemia: Microcytic, hypochromic. H/H slowly trending down. Appears AOCD + severe MIHAI, slightly elevated ferritin level likely as APR. S/p dose of IV iron and monitor. May benefit from Procrit for H/H less than 10/30, respectively. Continue to monitor. 3. Leukocytosis: Trending down. CXR with bibasilar atelectasis. Afebrile, on abx. Pulmonary on board. 4. CKD: Etopside and Cisplatin dose reduced by 25% in outpatient setting. Creatinine stable. Managed per primary. 5. Constipation: Having BM's. Monitor. 6. DVT proph: Continue Lovenox 40mg sq daily. 7. Dispo: Once patient is discharged, he can follow up in clinic for continued care. Above plan discussed with Dr. Peralta. Thank you for the consult. I will be available. Please call with questions.
--- NOTE | 2019-09-07 19:00 | NUR ---
pt received from day shift nurse. pt a&ox3. Sitting at bedside chair. No respiratory distress. call light within reach, clutters out of way, Lines and tubings properly place. Will continue to monitor. pt educated to call for help as needed
[2019-09-08] VITALS: BP 153/81
[2019-09-08] MEDS: HYDROCODONE/APAP 10MG-325MG TAB PO PRN (00:45)
[2019-09-08] MEDS: CEFAZOLIN SOD 1 GM/NS 50ML 50 ML IV SCH ×2 (01:26→09:05)
[2019-09-08 04:00] VITALS: BP 118/57
[2019-09-08 05:55] LABS: BASOPHILS % 0.2 % (0.0-1.0); EOSINOPHILS # (AUTO) 0.2 (0.0-0.4); EOSINOPHILS % 1.6 % (0.0-6.0); HEMATOCRIT 32.9 % (38.2-49.6); LYMPHOCYTES # (AUTO) 2.8 (1.0-3.2); LYMPHOCYTES % 26.5 % (18.0-39.1); MEAN CORPUSCULAR HEMOGLOBIN 23.6 pg (28-32); MEAN CORPUSCULAR HGB CONC 30.4 g/dL (31-35); MEAN CORPUSCULAR VOLUME 77.6 fL (81-99); MONOCYTES # (AUTO) 1.1 (0.2-0.8); MONOCYTES % 10.6 % (4.4-11.3); NEUTROPHILS # (AUTO) 6.5 (2.1-6.9); NEUTROPHILS % 60.6 % (38.7-80.0); PLATELET COUNT 251 x10e3/uL (140-360); RED BLOOD COUNT 4.24 x10e6/uL (4.3-5.7); RED CELL DISTRIBUTION WIDTH 14.6 % (11.7-14.4)
[2019-09-08 06:12] LABS: ANION GAP 15.2 mmol/L (8-16); BLOOD UREA NITROGEN 9 mg/dL (7-26); BUN/CREATININE RATIO 8 (6-25); CALCIUM 9.7 mg/dL (8.4-10.2); CARBON DIOXIDE 23 mmol/L (22-29); CHLORIDE 99 mmol/L (98-107); CREATININE, SERUM 1.11 mg/dL (0.72-1.25); EST GLOMERULAR FILTRATION RATE > 60 ML/MIN (60-); GLUCOSE 114 mg/dL (74-118); POTASSIUM 4.2 mmol/L (3.5-5.1); SODIUM 133 mmol/L (136-145)
--- NOTE | 2019-09-08 07:00 | NUR ---
RECEIVED PATIENT RESTING IN BED NO S/S OF DISTRESS. BED LOW, WHEELS LOCKED, SIDE RAILS X2. CALL LIGHT IN REACH WILL CONTINUE TO MONITOR PATIENT.
--- NOTE | 2019-09-08 07:09 | NUR ---
bedside shift report given to the oncoming nurse. a&o x3. call phone within reach, bed in lowest position. side rails up x2. pt in stable condition
[2019-09-08] MEDS: INSULIN LISPRO 100 UNIT/1 ML 3ML VIAL SQ SCH (07:30)
[2019-09-08 08:37] VITALS: BP 128/70
[2019-09-08 09:10] VITALS: BP 128/70
--- NOTE | 2019-09-08 09:11 | Discharge Summary ---
CONSULTANTS: 1. Dr. Johann Salazar. 2. Dr. Mei Peralta. 3. Dr. Brett Jessica. HISTORY: The patient was admitted to ICU post thoracoabdominal exploration and thoracotomy done by Dr. Brett Jessica on September 03, 2019. The patient is status post operation of thoracoabdominal exploration with thoracotomy and placement of left chest tube through a separate incision with subsequent discontinue and removal and retroperitoneal lymphadenectomy. SUMMARY: The patient is a 38 years male with multiple chronic medical problems including diabetes type 2, hypertension, reflux, and stage IIB testicular cancer, status post left-sided orchiectomy and on chemotherapy, multiple cycles were done. The patient underwent procedure as mentioned above. The patient had left chest tube in place. Postoperatively, the patient was in the ICU on PET HOUSE SITTER pain control and chest tube monitoring. The patient was stable. He was subsequently weaned off the PET HOUSE SITTER and left chest tube was subsequently removed and the patient was transferred out of the ICU. In the meantime, the patient continued with pain management and NG tube support, subsequently that was discontinued once his bowel was noticed. The patient continued to improve. He was transferred out of the ICU with increase in activity, incentive spirometry, DVT prophylaxis. The patient is now stable. He sleeps with a CPAP at night and overall the patient is comfortable, stable enough for the patient to go home today. He will follow up with Dr. Jessica and his primary care physician along with his oncologist in approximately 1 to 2 weeks. The patient is otherwise stable. Discharged today. Keflex 500 mg t.i.d. for 7 days. Tessalon Perles as needed for cough and resume his home medications. The patient is stable, discharged today. MD NAYELY Taveras/LIUDMILAL /[id number]
[2019-09-08] MEDS ORDERED: KEFLEX500 MG PO (09:25)
[2019-09-08] MEDS ORDERED: TESSALON PERLE100 MG PO (09:26)
--- NOTE | 2019-09-08 10:15 | NUR ---
REMOVED PATIENTS IV. CATHETER TIP INTACT AND PRESSURE DRESSING APPLIED.
--- NOTE | 2019-09-08 10:34 | NUR ---
PATIENT DISCHARGED FROM FACILITY. PATIENT GATHERED ALL PERSONAL BELONGINGS, DISCHARGE INSTRUCTIONS, AND FOLLOW UP INFORMATION. LEFT UNIT IN WHEELCHAIR AND WENT HOME VIA PRIVATE AUTO. NO S/S OF DISTRESS WHEN LEAVING FACILITY.
== END 2019-09-08 10:35 | disposition home or self-care (01) | DRG 357 ==
LOC: OR 05:26 → PACU V 12:57 → ICU 16:10 → MED/SURG 09-06 16:00
PROVIDERS: ADMIT Internal Medicine; ATTEND Internal Medicine
PROC: 07BD0ZX Excision of Aortic Lymphatic, Open Approach, Diagnostic (ICD-10-PCS; 2019-09-03)
PROC: 0WJH0ZZ Inspection of Retroperitoneum, Open Approach (ICD-10-PCS; 2019-09-03)
PROC: 0BJ Respiratory System, Inspection (ICD-10-PCS; 2019-09-03)
PROC: 0W9B30Z Drainage of Left Pleural Cavity with Drainage Device, Percutaneous Approach (ICD-10-PCS; principal; 2019-09-03 07:00)
DX: C78.6 Secondary malignant neoplasm of retroperitoneum and peritoneum (principal); E87.1 Hypo-osmolality and hyponatremia; C62.92 Malignant neoplasm of left testis, unspecified whether descended or undescended; K21.9 Gastro-esophageal reflux disease without esophagitis; R59.0 Localized enlarged lymph nodes; K66.0 Peritoneal adhesions (postprocedural) (postinfection); G47.33 Obstructive sleep apnea (adult) (pediatric); Z80.3 Family history of malignant neoplasm of breast; Z80.8 Family history of malignant neoplasm of other organs or systems; E11.22 Type 2 diabetes mellitus with diabetic chronic kidney disease; N18.9 Chronic kidney disease, unspecified; D64.9 Anemia, unspecified; Z90.79 Acquired absence of other genital organ(s); K59.00 Constipation, unspecified; Z79.4 Long term (current) use of insulin; I12.9 Hypertensive chronic kidney disease with stage 1 through stage 4 chronic kidney disease, or unspecified chronic kidney disease
CPT/HCPCS: 36415; 71045; 80048; 82728; 82948; 83036; 83540; 83735; 84100; 84466; 85014; 85018; 85025; 86850; 86900; 86920; 88304; 88307; 93005; 97139; J0690; J1100; J1650; J2001; J2250; J2270; J2405; J2916; J3010; J3480; J7030; Q0162